=== PATIENT | female | born 1935 | race Caucasian/White ===

== ENCOUNTER → 2016-03-09 | Outpatient (CLI) | payer MEDICARE, OTHER ==
--- NOTE | 2016-03-09 22:40 | XR ---
EXAMINATION TYPE: XR chest 2V DATE OF EXAM: 03/09/2016 5:40 PM COMPARISON: 06/07/2015 HISTORY: 80-year-old female chest pain and cough TECHNIQUE: Frontal and lateral views FINDINGS: Heart remains upper limits of normal in size. Aorta and pulmonary vasculature within normal limits. D iffuse interstitial prominence is similar. Peribronchial cuffing appears accentuated. Continued media l right basilar opacity likely prominent epicardial fat pad. Mild hyperinflation. No consolidation or pleural effusion. IMPRESSION: Correlate for underlying COPD. There may be increased peribronchial opacities that could represent dhaliwal perimposed acute bronchitis.
== END | disposition home or self-care (01) ==
LOC: RADXRMAIN 17:30
PROVIDERS: ATTEND Family Medicine
DX: R07.89 Other chest pain (principal); R91.8 Other nonspecific abnormal finding of lung field
CPT/HCPCS: 71020

== ENCOUNTER → 2016-03-22 | Outpatient (CLI) | payer MEDICARE, OTHER ==
--- NOTE | 2016-03-22 17:39 | XR ---
EXAMINATION TYPE: XR Hip Bilateral Complete DATE OF EXAM: 03/22/2016 5:34 PM COMPARISON: NONE HISTORY: Bilateral hip pain TECHNIQUE: 4 views FINDINGS: I see no fracture nor dislocation. Hip joint spaces are fairly normal. There is mild spurri ng at both hip joints. IMPRESSION: Mild degenerative hypertrophic spurring. No fracture. No change compared to old abdomen x -ray of 09/14/2009.
== END | disposition home or self-care (01) ==
LOC: RADXRMAIN 17:22
PROVIDERS: ATTEND Family Medicine
DX: M16.0 Bilateral primary osteoarthritis of hip (principal)
CPT/HCPCS: 73521

== ENCOUNTER → 2016-07-07 | Outpatient (CLI) | payer MEDICARE, OTHER ==
--- NOTE | 2016-07-07 12:46 | US ---
EXAMINATION TYPE: US abdomen complete DATE OF EXAM: 07/07/2016 9:54 AM COMPARISON: Correlation CT 01/21/2016 CLINICAL HISTORY: 80-year-old female R14.0 ABD BLOATING. ABD pain and bloating TECHNIQUE: Multiple sonographic images of the abdomen were obtained. FINDINGS: PLASTICS FACTORY WORKER NOTE: Difficult exam, large pt body habitus, difficulty breathing and lying on bed Liver Length: 19.0 cm CBD: 1.0 cm Spleen: 10.6 cm Right Kidney: 9.2 x 4.5 x 4.9 cm Left Kidney: 9.9 x 4.2 x 4.6 cm Pancreas: 4mm main pancreatic duct visible, only a small portion of the neck and body are visualized . Remainder suboptimally seen due to shadowing from bowel gas. Liver: Mildly enlarged, echogenic, and attenuating. This secondarily limits assessment for focal lesi on. Gallbladder: Surgically absent CBD: Dilated but likely within normal limits given postcholecystectomy status. Spleen: Granulomas visible Right Kidney: No hydronephrosis Left Kidney: No hydronephrosis Upper IVC: Not well seen Abd Aorta: Obscured by overlying bowel gas IMPRESSION: 1. Technically difficult exam noted by the harvest contractor. 2. Hepatomegaly and hepatic steatosis. Correlate with LFTs, lipid profile, and patient risk factors. 3. Status post cholecystectomy. Bile duct is dilated but likely normal given patient's age and cholec ystectomy status. This can be correlated with alkaline phosphatase and bilirubin levels. 4. Mildly dilated main pancreatic duct at 4 mm, probably chronic for this patient. Correlate with claudia lase and lipase levels. 5. Calcified granulomas in the spleen.
== END | disposition home or self-care (01) ==
LOC: RADUSWWP 09:31
PROVIDERS: ATTEND Family Medicine
DX: R16.0 Hepatomegaly, not elsewhere classified (principal); K76.0 Fatty (change of) liver, not elsewhere classified; Z90.49 Acquired absence of other specified parts of digestive tract; D73.89 Other diseases of spleen; K86.89 Other specified diseases of pancreas
CPT/HCPCS: 76700

== ENCOUNTER 2016-08-04 07:44 | Inpatient (IN) | payer MEDICARE, OTHER ==
[2016-08-04] MEDS ORDERED: SODIUM CHLORIDE 0.9% 1,000 ML IV STA (08:07)
[2016-08-04] MEDS ORDERED: HYDROmorphone 1 MG/ML 1 ML SYRINGE IVP STA (08:07)
[2016-08-04] MEDS ORDERED: ONDANSETRON 4 MG/2 ML VIAL IVP STA (08:07)
--- NOTE | 2016-08-04 08:45 | ED ---
Fall HPI - General Chief Complaint: Fall Stated Complaint: FALL, CHEST PAIN, ABDOMINAL PAIN Time Seen by Provider: 08/04/16 07:50 Source: patient, EMS Mode of arrival: EMS - History of Present Illness Initial Comments: This 80-year-old female presents complaining of falling out of bed this morning. She states that she fell out of bed and was unable to get up. She had been lying on the floor for approximately 4 hours. She states that she hit her head but did not lose any consciousness. She also complains of some neck and back pain. Her grandson eventually did find her and they called EMS and she presents via ambulance. She complains of diffuse pain but it is somewhat worse in the head neck back and pelvis regions. She denies any extremity trauma. She feels very weak. She denies any chest pain or shortness of breath. No fevers or chills. She feels very weak. No other complaints or modifying factors. - Related Data Home Medications Medication Instructions Recorded Confirmed Ipratropium/Albuterol Sulfate 3 ml INHALATION RT-QID PRN 06/12/13 08/04/16 [Duoneb 0.5 mg-3 mg/3 ml Soln] Albuterol Inhaler [Ventolin Hfa 1 - 2 puff INHALATION RT-Q6H PRN 05/19/14 Inhaler] Metoprolol Tartrate [Lopressor] 25 mg PO DAILY 05/19/14 08/04/16 Insulin Aspart Protam & Aspart 40 unit SQ BID 06/07/15 08/04/16 [NovoLOG MIX 70-30 Flexpen] LORazepam [Ativan] 2 mg PO TID PRN 08/04/16 08/04/16 Metoprolol Tartrate [Lopressor] 50 mg PO HS 08/04/16 08/04/16 Spironolactone [Aldactone] 100 mg PO DAILY 08/04/16 08/04/16 Allergies Allergy/AdvReac Type Severity Reaction Status Date / Time iodine Allergy Severe Unknown Verified 08/04/16 09:05 blue dye Allergy Swelling Verified 08/04/16 09:05 bumetanide [From Bumex] Allergy Swelling Verified 08/04/16 09:05 diphenhydramine Allergy Unknown Verified 08/04/16 09:05 [From Benadryl] glipizide [From Glucotrol] Allergy Swelling Verified 08/04/16 09:05 metformin Allergy Swelling Verified 08/04/16 09:05 naproxen sodium [From Aleve] Allergy Swelling Verified 08/04/16 09:05 Penicillins Allergy Swelling Verified 08/04/16 09:05 codeine AdvReac Nausea & Verified 08/04/16 09:05 Vomiting furosemide [From Lasix] AdvReac Abdominal Verified 08/04/16 09:05 Pain levofloxacin [From Levaquin] AdvReac Abdominal Verified 08/04/16 09:05 Pain morphine AdvReac Nausea & Verified 08/04/16 09:05 Vomiting nateglinide [From Starlix] AdvReac Unknown Verified 08/04/16 09:05 nitrofurantoin AdvReac Nausea & Verified 08/04/16 09:05 [From Macrobid] Vomiting & Diarrhea nitrofurantoin AdvReac Nausea & Verified 08/04/16 09:05 macrocrystalline Vomiting & [From Macrobid] Diarrhea Sulfa (Sulfonamide AdvReac Abdominal Verified 08/04/16 09:05 Antibiotics) Pain Review of Systems ROS Statement: Those systems with pertinent positive or pertinent negative responses have been documented in the HPI. ROS Other: All systems not noted in ROS Statement are negative. Past Medical History Past Medical History: Asthma, Chest Pain / Angina, COPD, CVA/TIA, Diabetes Mellitus, GERD/Reflux, Hyperlipidemia, Hypertension, Osteoarthritis (OA), Vascular Disorder Additional Past Medical History / Comment(s): chronic back pain and spimal; stenosis, varicose veins, bronchitis, emphysema, gallbladder disorder, irritable bowel syndrome, polyps, urinary incontinence, UTI, arthritis History of Any Multi-Drug Resistant Organisms: None Reported Past Surgical History: Appendectomy, Cholecystectomy, Hysterectomy Additional Past Surgical History / Comment(s): foot surgery (unknown), hemorrhoidectomy Past Anesthesia/Blood Transfusion Reactions: No Reported Reaction Past Psychological History: Anxiety, Depression Smoking Status: Former smoker Past Alcohol Use History: None Reported Past Drug Use History: None Reported - Past Family History Father History Unknown: Yes Family Medical History: Unable to Obtain Additional Family Medical History / Comment(s): at 32 from drowning Mother History Unknown: Yes Family Medical History: Myocardial Infarction (NH) Brother(s) History Unknown: Yes Family Medical History: Unable to Obtain Sister(s) History Unknown: Yes Family Medical History: Hypertension, Osteoarthritis (OA) Daughter(s) History Unknown: Yes Additional Family Medical History / Comment(s): back issues General Exam - General Exam Comments Initial Comments: GENERAL: The patient is well nourished and well hydrated. VITAL SIGNS: Heart rate, blood pressure, respiratory rate reviewed as recorded in nurse's notes. EYES: Pupils are round and reactive. Extraocular movements are intact. No conjunctival / lid redness or swelling. ENT: No external evidence of injury, swelling, or ecchymosis. Airway is patent. Throat is clear. NECK: There is mild tenderness present to the bilateral paracervical musculature. No swelling or evidence of injury. No subcutaneous emphysema. Trachea is midline. No thyroid mass. HEART: Regular rate and rhythm. Good peripheral pulses. LUNGS/CHEST: Breath sounds clear and equal bilaterally. No rales, rhonchi, or wheezes. No ecchymosis, subcutaneous emphysema, or tenderness. ABDOMEN: Abdomen soft without tenderness. No palpable masses or organomegaly. No peritoneal signs. No abdominal wall swelling or ecchymosis. EXTREMITIES: No extremity tenderness. Normal muscle tone and function. There is mild diffuse tenderness throughout the bilateral parathoracic and paralumbar musculature. There is mild diffuse tenderness throughout the pelvis and hips. NEUROLOGIC: Sensation is grossly intact. Cranial nerve exam reveals face is symmetrical, tongue is midline, speech is clear. SKIN: No abrasions or ecchymosis is noted. No induration or masses noted. PSYCHIATRIC: Alert and oriented. Appropriate behavior and judgment. Limitations: physical limitation Course Vital Signs 08/04/16 08/04/16 07:45 09:15 Temperature 98.5 F Pulse Rate 99 84 Respiratory 20 20 Rate Blood Pressure 175/79 167/72 O2 Sat by Pulse 95 98 Oximetry Medical Decision Making - Medical Decision Making The patient was seen and examined. All diagnostics were reviewed. EKG shows a normal sinus rhythm at a rate of 91. There is no acute ST-T wave changes identified. The DE interval is 252, QRS duration is 66, and the QTc interval is 474. An IV is started and she is hydrated. She received some Zofran for nausea and Dilaudid for pain. A CT of the head and neck was ordered. X-rays of the thoracic spine, lumbar spine, chest and pelvis are ordered as well. The computed tomography scan did not show any acute processes. The x-rays also did not show any acute processes. The laboratory came back showing slight elevation of the CK-MB and a moderate elevation of the CPK. The urine is equivocal for possible urinary infection. She feels somewhat improved on recheck. She is still feels very weak. She does not feel well enough to be discharged home. She states that she is worried about falling and lives alone. The case is discussed with Dr. Enriquez from internal medicine and he is agreeable with full admission. - Lab Data Result diagrams: 08/04/16 08:15 08/04/16 08:15 Lab Results 08/04/16 08/04/16 08/04/16 Range/Units 08:15 08:15 08:15 WBC 8.8 (3.8-10.6) k/uL RBC 4.30 (3.80-5.40) m/uL Hgb 13.5 (11.4-16.0) gm/dL Hct 36.6 (34.0-46.0) % MCV 85.2 (80.0-100.0) fL MCH 31.3 (25.0-35.0) pg MCHC 36.8 (31.0-37.0) g/dL RDW 13.6 (11.5-15.5) % Plt Count 233 (150-450) k/uL Neutrophils % 74 % Lymphocytes % 16 % Monocytes % 7 % Eosinophils % 1 % Basophils % 0 % Neutrophils # 6.5 (1.3-7.7) k/uL Lymphocytes # 1.4 (1.0-4.8) k/uL Monocytes # 0.6 (0-1.0) k/uL Eosinophils # 0.1 (0-0.7) k/uL Basophils # 0.0 (0-0.2) k/uL PT (9.0-12.0) sec INR (<1.1) APTT (22.0-30.0) sec Sodium 141 (137-145) mmol/L Potassium 3.6 (3.5-5.1) mmol/L Chloride 103 (98-107) mmol/L Carbon Dioxide 26 (22-30) mmol/L Anion Gap 12 mmol/L BUN 16 (7-17) mg/dL Creatinine 0.59 (0.52-1.04) mg/dL Est GFR (MDRD) Af Amer >60 (>60 ml/min/1.73 sqM) Est GFR (MDRD) Non-Af >60 (>60 ml/min/1.73 sqM) Glucose 229 H (74-99) mg/dL Calcium 9.2 (8.4-10.2) mg/dL Total Bilirubin 0.6 (0.2-1.3) mg/dL AST 31 (14-36) U/L ALT 35 (9-52) U/L Alkaline Phosphatase 99 (38-126) U/L Total Creatine Kinase 580 H (30-135) U/L CK-MB (CK-2) 6.5 H* (0.0-2.4) ng/mL CK-MB (CK-2) Rel Index 1.1 Troponin I 0.018 (0.000-0.034) ng/mL Total Protein 6.9 (6.3-8.2) g/dL Albumin 4.0 (3.5-5.0) g/dL Urine Color Urine Appearance (Clear) Urine pH (5.0-8.0) Ur Specific [place] (1.001-1.035) Urine Protein (Negative) Urine Glucose (UA) (Negative) Urine Ketones (Negative) Urine Blood (Negative) Urine Nitrite (Negative) Urine Bilirubin (Negative) Urine Urobilinogen (<2.0) mg/dL Ur Leukocyte Esterase (Negative) Urine RBC (0-5) /hpf Urine WBC (0-5) /hpf Ur Squamous Epith Cells (0-4) /hpf Urine Bacteria (None) /hpf Urine Mucus (None) /hpf 08/04/16 08/04/16 Range/Units 08:15 08:15 WBC (3.8-10.6) k/uL RBC (3.80-5.40) m/uL Hgb (11.4-16.0) gm/dL Hct (34.0-46.0) % MCV (80.0-100.0) fL MCH (25.0-35.0) pg MCHC (31.0-37.0) g/dL RDW (11.5-15.5) % Plt Count (150-450) k/uL Neutrophils % % Lymphocytes % % Monocytes % % Eosinophils % % Basophils % % Neutrophils # (1.3-7.7) k/uL Lymphocytes # (1.0-4.8) k/uL Monocytes # (0-1.0) k/uL Eosinophils # (0-0.7) k/uL Basophils # (0-0.2) k/uL PT 10.5 (9.0-12.0) sec INR 1.0 (<1.1) APTT 22.6 (22.0-30.0) sec Sodium (137-145) mmol/L Potassium (3.5-5.1) mmol/L Chloride (98-107) mmol/L Carbon Dioxide (22-30) mmol/L Anion Gap mmol/L BUN (7-17) mg/dL Creatinine (0.52-1.04) mg/dL Est GFR (MDRD) Af Amer (>60 ml/min/1.73 sqM) Est GFR (MDRD) Non-Af (>60 ml/min/1.73 sqM) Glucose (74-99) mg/dL Calcium (8.4-10.2) mg/dL Total Bilirubin (0.2-1.3) mg/dL AST (14-36) U/L ALT (9-52) U/L Alkaline Phosphatase (38-126) U/L Total Creatine Kinase (30-135) U/L CK-MB (CK-2) (0.0-2.4) ng/mL CK-MB (CK-2) Rel Index Troponin I (0.000-0.034) ng/mL Total Protein (6.3-8.2) g/dL Albumin (3.5-5.0) g/dL Urine Color Light Yellow Urine Appearance Cloudy H (Clear) Urine pH 6.0 (5.0-8.0) Ur Specific [place] 1.008 (1.001-1.035) Urine Protein Negative (Negative) Urine Glucose (UA) 4+ H (Negative) Urine Ketones Negative (Negative) Urine Blood Negative (Negative) Urine Nitrite Negative (Negative) Urine Bilirubin Negative (Negative) Urine Urobilinogen <2.0 (<2.0) mg/dL Ur Leukocyte Esterase Small H (Negative) Urine RBC 5 (0-5) /hpf Urine WBC 8 H (0-5) /hpf Ur Squamous Epith Cells 1 (0-4) /hpf Urine Bacteria Rare H (None) /hpf Urine Mucus Rare H (None) /hpf Disposition Clinical Impression: Fall, Head injury, Cervical strain, Strain of thoracic spine, Lumbar strain, Elevated CPK, Weakness, Morbid obesity Disposition: ADMITTED IP TO THIS HOSP Condition: Fair Instructions: Fall Prevention for Older Adults (ED) Referrals: Axel Thomason DO [Primary Care Provider] - 1-2 days Time of Disposition: 11:52 Decision Date: 08/04/16 Decision Time: 11:52
[2016-08-04 09:02] LABS: Basophils % (A) 0 %; CH 30.3; CHCM 35.8; Eosinophils # (A) 0.1 k/uL (0-0.7); Eosinophils % (A) 1 %; HCT 36.6 % (34.0-46.0); HDW 3.07; HGB 13.5 gm/dL (11.4-16.0); Luc # (Auto) 0.18; Luc % (Auto) 2; Lymphocytes # (A) 1.4 k/uL (1.0-4.8); Lymphocytes % (A) 16 %; MCH 31.3 pg (25.0-35.0); MCHC 36.8 g/dL (31.0-37.0); MCV 85.2 fL (80.0-100.0); Mean Platelet Volume 7.3; Monocytes # (A) 0.6 k/uL (0-1.0); Monocytes % (A) 7 %; Neutrophils # (A) 6.5 k/uL (1.3-7.7); Neutrophils % (A) 74 %; RDW 13.6 % (11.5-15.5); WBC 8.8 k/uL (3.8-10.6); WBC (Perox) 9.12
[2016-08-04 09:08] LABS: Partial Thromboplastin Time 22.6 sec (22.0-30.0); Prothrombin Time 10.5 sec (9.0-12.0)
[2016-08-04 09:12] LABS: Appearance,Urine Cloudy (Clear); Bacteria,Urine Rare /hpf; Bilirubin,Urine Negative (Negative); Glucose,Urine (UA) 4+ (Negative); Ketones,Urine Negative (Negative); Leukocyte Esterase,Urine Small (Negative); Mucus,Urine Rare /hpf; Nitrite,Urine Negative (Negative); Particle Count 5067; Protein,Urine Negative (Negative); RBC,Urine 5 /hpf (0-5); Specific Gravity,Urine 1.008 (1.001-1.035); Squamous Epithelial Cell,Urine 1 /hpf (0-4); UA Billing (MACRO vs. MICRO) MICRO; Urobilinogen,Urine <2.0 mg/dL (<2.0); WBC,Urine 8 /hpf (0-5)
[2016-08-04 09:13] LABS: ALT 35 U/L (9-52); AST 31 U/L (14-36); Alkaline Phosphatase 99 U/L (38-126); Anion Gap 12 mmol/L; Blood Urea Nitrogen 16 mg/dL (7-17); Calcium 9.2 mg/dL (8.4-10.2); Carbon Dioxide 26 mmol/L (22-30); Chloride 103 mmol/L (98-107); Glucose 229 mg/dL (74-99); Non-African American GFR(MDRD) >60 (>60 ml/min/1.73 sqM); Potassium 3.6 mmol/L (3.5-5.1); Sodium 141 mmol/L (137-145); Total Bilirubin 0.6 mg/dL (0.2-1.3); Total Protein 6.9 g/dL (6.3-8.2)
--- NOTE | 2016-08-04 09:26 | CT ---
EXAMINATION TYPE: CT brain narcisoine wo con DATE OF EXAM: 08/04/2016 COMPARISON: CT brain December 20, 2012 HISTORY: Fall injury yesterday, Chest and Abdominal pain. CT DLP: 1726 mGycm. Automated Exposure Control for Dose Reduction was Utilized. TECHNIQUE: CT scan of the head and cervical spine are performed without contrast. FINDINGS: There is no acute intracranial hemorrhage hemorrhage or midline shift identified. There i s ventricular and sulcal prominence consistent with diffuse cerebral atrophy. There is low-attenuatio n in the periventricular white matter. The globes are intact and the visualized sinuses are clear. Th e calvarium is intact Cervical spine is visualized in its entirety from C1 through upper thoracic levels and demonstrates s atisfactory alignment without evidence of acute fracture or dislocation. Prevertebral soft tissue ap pears within normal limits. The C1-C2 articulation is within normal limits on the coronal images. Osseous structures are demineralized. Vertebral body heights and disc space heights are fairly well-m aintained. Spinal canal is preserved. There is mild multilevel uncovertebral facet degenerative jarrett es bilaterally seen on axial images. Thyroid gland is felt within normal limits. There is mild to mod erate calcified plaque at carotid bulb level bilaterally. There is mild to moderate apical scarring i n both lung apices pronounced posteriorly. IMPRESSION: 1. There is no acute fracture or dislocation evident in the cervical spine. 2. No acute intracranial hemorrhage or midline shift is seen. Mild to moderate diffuse cerebral atrop hy and chronic small vessel ischemic change is redemonstrated.
[2016-08-04 09:37] LABS: Troponin I 0.018 ng/mL (0.000-0.034)
[2016-08-04 09:56] LABS: Creatine Kinase MB 6.5 ng/mL (0.0-2.4)
--- NOTE | 2016-08-04 10:15 | XR ---
EXAMINATION TYPE: XR pelvis AP view DATE OF EXAM: 08/04/2016 CLINICAL HISTORY: Pain after fall injury. TECHNIQUE: A single AP view of the pelvis is obtained. COMPARISON: None. FINDINGS: There is no acute fracture/dislocation evident in the pelvis. The hip and sacroiliac join ts appear symmetric and unremarkable. The overlying soft tissue appears unremarkable. IMPRESSION: There is no acute fracture or dislocation in the pelvis.
--- NOTE | 2016-08-04 10:18 | XR ---
EXAMINATION TYPE: XR chest 2V DATE OF EXAM: 08/04/2016 COMPARISON: Chest x-ray March 09, 2016. HISTORY: Chest pain after fall injury. TECHNIQUE: Frontal and lateral views of the chest are obtained. FINDINGS: There is no focal air space opacity, pleural effusion, or pneumothorax seen. The cardiac silhouette size is enlarged with atherosclerotic thoracic aorta. The osseous structures are intact. Cholecystectomy clips are noted on lateral view. IMPRESSION: Cardiomegaly without acute pulmonary process.
--- NOTE | 2016-08-04 10:19 | XR ---
EXAMINATION TYPE: XR lumbar spine 2 or 3V DATE OF EXAM: 08/04/2016 CLINICAL HISTORY: Pain from fall injury. TECHNIQUE: Frontal and lateral images of the lumbar spine are obtained. COMPARISON: Lumbar spine x-ray June 07, 2015. FINDINGS: Osseous structures are demineralized which is noted to lower radiographic sensitivity. The re are 5 lumbar type vertebral bodies identified. The lumbar spine redemonstrates grade 1 anterolist hesis of L4 on L5 without evidence of acute fracture or dislocation. Vertebral body heights and disk space heights are within normal limits. Vascular calcification of overlying abdominal aorta redemonst rated. Cholecystectomy clips are again seen. IMPRESSION: Demineralization with grade 1 anterolisthesis L4 on L5 redemonstrated. No acute fracture or dislocation is seen in the lumbar spine.
--- NOTE | 2016-08-04 10:20 | XR ---
EXAMINATION TYPE: XR thoracic spine 2V DATE OF EXAM: 08/04/2016 CLINICAL HISTORY: Fall with mid back pain. TECHNIQUE: Frontal, lateral, and swimmer's view of thoracic spine are obtained. COMPARISON: None. FINDINGS: Osseous structures are demineralized which is noted lower radiographic sensitivity. Thoraci c spine show exaggerated curvature without evidence of acute fracture or dislocation. Mild compressio n type deformities throughout the thoracic spine most prominent upper levels is felt present. Mild mu ltilevel lateral spurring is seen. Disc space heights are fairly well-maintained. Visualized ribs are unremarkable. Vascular calcification of the overlying aorta is noted. IMPRESSION: No acute fracture or dislocation is seen in the thoracic spine.
[2016-08-04] MEDS ORDERED: ACETAMINOPHEN TAB 325 MG TAB PO PRN (12:42)
[2016-08-04] MEDS ORDERED: ONDANSETRON 4 MG/2 ML VIAL IVP PRN (12:42)
[2016-08-04] MEDS ORDERED: NALOXONE 0.4 MG/ML 1 ML VIAL IV PRN (12:42)
[2016-08-04] MEDS ORDERED: ALBUTEROL INHALER 60 PUFF/8 GM INHALER INHALATION PRN (12:46)
[2016-08-04] MEDS: INSULIN LISPRO (humaLOG) 300 UNIT/3 ML VIAL SQ SCH ×2 (13:21→21:26)
[2016-08-04 13:22] LABS: Glucose,Whole Blood 342 mg/dL (75-99)
[2016-08-04] MEDS: IPRATROPIUM-ALBUTEROL 3 ML NEB INHALATION PRN ×2 (16:31→20:03)
--- NOTE | 2016-08-04 16:36 | P.HPIM ---
History of Present Illness H&P Date: 08/04/16 Chief Complaint: Fall, closed head trauma, cervical and spinal sprain, rhabdomyolysis, UTI,, 80-year-old female [address] Thomason patient with past medical history of CAD, COPD, CVA and TIA who is known to have diabetes hypertension hyperlipidemia chronic back pain and spinal stenosis with multiple other medical problem. 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 Patient edition 2 it is not able to ambulate and walk and had significant change in mental status at the time. Patient was started on treatment was placed on fluid hydration pain management patient was started physical therapy might require cervical spine collar will watch her kidney function and CK and try to treat the UTI more aggressively see if patient improve at this point. Review of Systems Constitutional: Reports chronic headaches, Reports fatigue, Reports fever, Reports lethargy, Reports malaise, Reports night sweats, Reports weakness, Reports weight gain, Denies as per HPI, Denies anorexia, Denies chills, Denies chronic pain, Denies daytime sleepiness, Denies poor appetite, Denies sweats, Denies weight loss Eyes: bilateral as per HPI Ears: bilateral: decreased hearing Ears, nose, mouth and throat: Reports ant. neck pain, Reports mouth pain, Reports nasal congestion, Reports nasal discharge, Reports sinus pain, Reports sinus pressure, Denies as per HPI, Denies bleeding gums, Denies dental pain, Denies dysphagia, Denies epistaxis, Denies headache, Denies hoarseness, Denies neck fullness/pressure, Denies neck lump, Denies nose pain, Denies odynophagia, Denies post-nasal drip, Denies swelling in mouth, Denies swelling in throat, Denies sore throat, Denies vertigo, Denies voice changes Cardiovascular: Reports decreased exercise tolerance, Reports dyspnea on exertion, Reports edema, Reports high blood pressure, Reports lightheadedness, Reports orthopnea, Reports palpitations, Reports rapid heart beat, Denies as per HPI, Denies chest pain, Denies claudication, Denies irregular heart beat, Denies leg edema, Denies paroxysmal nocturnal dyspnea, Denies phlebitis, Denies shortness of breath, Denies syncope Respiratory: Reports congestion, Reports dyspnea, Denies as per HPI, Denies cough, Denies cough with sputum, Denies excessive sputum, Denies hemoptysis, Denies home oxygen, Denies pain, Denies pain on inspiration, Denies pleurisy, Denies respiratory infections, Denies sleep apnea, Denies snoring, Denies wheezing Gastrointestinal: Reports belching, Reports bloating, Reports constipation, Reports dyspepsia, Reports early satiety, Reports indigestion, Reports nausea, Denies as per HPI, Denies abdominal pain, Denies BRBPR, Denies change in bowel habits, Denies coffee ground emesis, Denies diarrhea, Denies excessive gas, Denies heartburn, Denies hematemesis, Denies hematochezia, Denies jaundice, Denies lactose intolerance, Denies loss of appetite, Denies melena, Denies vomiting Genitourinary: Reports urge incontinence, Reports urinary frequency, Denies as per HPI, Denies abnormal vaginal bleeding, Denies decreased libido, Denies difficulty conceiving, Denies difficulty voiding, Denies dysmenorrhea, Denies dyspareunia, Denies dysuria, Denies flank pain, Denies genital sores, Denies hematuria, Denies hot flashes, Denies incomplete emptying, Denies kidney stones , Denies menorrhagia, Denies mixed incontinence, Denies nocturia, Denies pelvic pain, Denies post void dribbling, Denies , Denies prolapse symptoms, Denies stress incontinence, Denies urgency, Denies vaginal discharge, Denies vaginal dryness, Denies vaginal itching, Denies vaginal odor Musculoskeletal: Reports frequent falls, Reports gait dysfunction, Reports leg numbness/tingling, Reports limitation of motion, Reports morning stiffness, Reports muscle cramps, Reports muscle weakness, Reports myalgias, Reports neck pain, Reports neck stiffness, Denies as per HPI, Denies arm numbness/tingling, Denies atrophy, Denies fractures, Denies hot joints, Denies loss of height, Denies low back pain, Denies prior amputations, Denies redness of joints, Denies shooting arm pain, Denies shooting leg pain Integumentary: Reports pruritus, Denies as per HPI, Denies acne, Denies boils, Denies brittle nails, Denies change in hair/nails, Denies color changes, Denies darkening of skin, Denies depigmentation, Denies dryness, Denies foot/leg ulcers , Denies growths, Denies hirsutism, Denies lesions, Denies onychomycosis, Denies rash, Denies sores, Denies striae, Denies unusual bruising, Denies wounds Neurological: Reports ataxia, Reports burning pain, Reports change in mentation , Reports confusion, Reports convulsions, Reports double vision, Reports gait dysfunction, Reports head injury, Reports lack of coordination, Reports loss of vision, Reports motor disturbance, Reports numbness, Reports paralysis, Reports paresthesias, Reports sensory deficit, Reports spasticity, Reports tingling, Reports transient paralysis, Reports weakness, Denies as per HPI, Denies aphasia , Denies balance difficulties, Denies change in smell/taste, Denies change in speech, Denies headaches, Denies hearing difficulties, Denies memory loss, Denies migraines, Denies seizures, Denies syncope, Denies tic, Denies tremors, Denies vertigo, Denies visual changes Psychiatric: Reports anhedonia, Reports depression, Reports memory loss, Reports mood swings, Denies as per HPI, Denies anxiety, Denies anxiety attacks, Denies change in appetite, Denies change in libido, Denies change in sleep habits, Denies confusion, Denies difficulty concentrating, Denies disorientation , Denies hallucinations, Denies hopelessness, Denies hypersomnia, Denies insomnia, Denies irritability, Denies paranoia, Denies sadness/tearfulness, Denies sleep disturbances, Denies suicidal ideation Endocrine: Reports polyphagia, Reports polyuria Hematologic/Lymphatic: Reports easy bruising, Denies as per HPI, Denies easy bleeding, Denies lymphadenopathy, Denies lymphedema, Denies thrombophilia Allergic/Immunologic: Reports allergic rhinitis, Denies as per HPI, Denies anaphylaxis, Denies angioedema, Denies gluten intolerance, Denies persistent infections, Denies seasonal allergies, Denies urticaria, Denies wheezing Past Medical History Past Medical History: Asthma, Chest Pain / Angina, COPD, CVA/TIA, Diabetes Mellitus, GERD/Reflux, Hyperlipidemia, Hypertension, Osteoarthritis (OA), Pneumonia, Vascular Disorder Additional Past Medical History / Comment(s): NIDDM type II, neuropathy bilateral feet, chronic back pain, spinal stenosis, PAD, bilateral varicose veins, bronchitis, emphysema, irritable bowel syndrome, polyps, urinary incontinence, UTI, arthritis in legs bilaterally, tinnitus bilaterally, cataracts bilaterally.. History of Any Multi-Drug Resistant Organisms: None Reported Past Surgical History: Appendectomy, Cholecystectomy, Hysterectomy, Orthopedic Surgery Additional Past Surgical History / Comment(s): EGD/colonoscopy, hemorrhoidectomy , bilateral feet bunionectomies and corns removed. Past Anesthesia/Blood Transfusion Reactions: No Reported Reaction Smoking Status: Former smoker - Past Family History Father History Unknown: Yes Family Medical History: Unable to Obtain Additional Family Medical History / Comment(s): at 32 from drowning Mother History Unknown: Yes Family Medical History: Myocardial Infarction ([place]) Additional Family Medical History / Comment(s): Mother of a [place] at the age of 68yrs. Brother(s) History Unknown: Yes Family Medical History: Unable to Obtain Sister(s) History Unknown: Yes Family Medical History: Hypertension, Osteoarthritis (OA) Daughter(s) History Unknown: Yes Additional Family Medical History / Comment(s): back issues Medications and Allergies Home Medications Medication Instructions Recorded Confirmed Type Ipratropium/Albuterol Sulfate 3 ml INHALATION RT-QID PRN 06/12/13 08/04/16 History [Duoneb 0.5 mg-3 mg/3 ml Soln] Albuterol Inhaler [Ventolin Hfa 1 - 2 puff INHALATION RT-Q6H PRN 05/19/14 History Inhaler] Metoprolol Tartrate [Lopressor] 25 mg PO DAILY 05/19/14 08/04/16 History Insulin Aspart Protam & Aspart 40 unit SQ BID 06/07/15 08/04/16 History [NovoLOG MIX 70-30 Flexpen] LORazepam [Ativan] 2 mg PO TID PRN 08/04/16 08/04/16 History Metoprolol Tartrate [Lopressor] 50 mg PO HS 08/04/16 08/04/16 History Spironolactone [Aldactone] 100 mg PO DAILY 08/04/16 08/04/16 History Allergies Allergy/AdvReac Type Severity Reaction Status Date / Time iodine Allergy Severe Unknown Verified 08/04/16 09:05 blue dye Allergy Swelling Verified 08/04/16 09:05 bumetanide [From Bumex] Allergy Swelling Verified 08/04/16 09:05 diphenhydramine Allergy Unknown Verified 08/04/16 09:05 [From Benadryl] glipizide [From Glucotrol] Allergy Swelling Verified 08/04/16 09:05 metformin Allergy Swelling Verified 08/04/16 09:05 naproxen sodium [From Aleve] Allergy Swelling Verified 08/04/16 09:05 Penicillins Allergy Swelling Verified 08/04/16 09:05 codeine AdvReac Nausea & Verified 08/04/16 09:05 Vomiting furosemide [From Lasix] AdvReac Abdominal Verified 08/04/16 09:05 Pain levofloxacin [From Levaquin] AdvReac Abdominal Verified 08/04/16 09:05 Pain morphine AdvReac Nausea & Verified 08/04/16 09:05 Vomiting nateglinide [From Starlix] AdvReac Unknown Verified 08/04/16 09:05 nitrofurantoin AdvReac Nausea & Verified 08/04/16 09:05 [From Macrobid] Vomiting & Diarrhea nitrofurantoin AdvReac Nausea & Verified 08/04/16 09:05 macrocrystalline Vomiting & [From Macrobid] Diarrhea Sulfa (Sulfonamide AdvReac Abdominal Verified 08/04/16 09:05 Antibiotics) Pain Physical Exam Vitals: Vital Signs Temp Pulse Pulse Resp BP BP Pulse Ox 08/04/16 15:00 97.2 F L 93 16 142/64 99 08/04/16 13:07 97.5 F L 85 18 125/59 97 08/04/16 09:15 84 20 167/72 98 08/04/16 07:45 98.5 F 99 20 175/79 95 Intake and Output 08/04/16 08/04/16 08/04/16 06:59 14:59 22:59 Other: Weight 81.647 kg Patient Weight 08/05/16 06:59 Weight 81.647 kg - Constitutional General appearance: no average body habitus, cooperative, disheveled, no mild distress, no morbidly obese, no no acute distress, no obese, no severe distress , no thin - EENT Eyes: no abnormal pupil, no anicteric sclerae, no disc margins sharp, no edentulous, no EOMI, no PERRLA, no fundus normal, no photophobia, no dentition normal, no poor dentition, no ptosis, no scleral icterus, normal appearance ENT: hard of hearing, no hearing grossly normal, no NA/AT, normal oropharynx, no other, no pharyngeal erythema, no thrush, no tonsillar exudates, no tonsillar swelling Ears: bilateral: normal - Neck Quite bit pain and discomfort with significant restriction to motion. Neck: no lymphadenopathy, no normal ROM, no other, rigidity, no stridor, no thyromegaly Carotids: bilateral: upstroke normal Thyroid: bilateral: normal size - Respiratory Respiratory: bilateral: diminished, dullness, rales, rhonchi, wheezing - Cardiovascular Rhythm: regular Heart sounds: normal: S1, S2 Abnormal Heart Sounds: systolic murmur, S3 Gallop - Gastrointestinal General gastrointestinal: no absent bowel sounds, decreased bowel sounds, no distended, no hepatomegaly, no hyperactive bowel sounds, no normal bowel sounds , no organomegaly, no rigid, no scaphoid, soft, splenomegaly, no tenderness, no umbilical hernia, no ventral hernia - Integumentary Integumentary: no calor, no cellulitis, no cyanotic, no decreased turgor, no flushed, no jaundiced, normal, no normal turgor, pale, rash, no ulcer - Neurologic Neurologic: CNII-XII intact - Musculoskeletal Musculoskeletal: no gait normal, generalized weakness, no strength equal bilaterally, no right sided weakness, no left sided weakness - Psychiatric Psychiatric: A&O x's 3, no appropriate affect, no intact judgment & insight Results CBC & Chem 7: 08/04/16 08:15 08/04/16 08:15 Labs: Abnormal Lab Results - Last 24 Hours (Table) 08/04/16 08/04/16 08/04/16 Range/Units 08:15 08:15 08:15 Glucose 229 H (74-99) mg/dL POC Glucose (mg/dL) (75-99) mg/dL Total Creatine Kinase 580 H (30-135) U/L CK-MB (CK-2) 6.5 H* (0.0-2.4) ng/mL Urine Appearance Cloudy H (Clear) Urine Glucose (UA) 4+ H (Negative) Ur Leukocyte Esterase Small H (Negative) Urine WBC 8 H (0-5) /hpf Urine Bacteria Rare H (None) /hpf Urine Mucus Rare H (None) /hpf 08/04/16 Range/Units 13:05 Glucose (74-99) mg/dL POC Glucose (mg/dL) 342 H (75-99) mg/dL Total Creatine Kinase (30-135) U/L CK-MB (CK-2) (0.0-2.4) ng/mL Urine Appearance (Clear) Urine Glucose (UA) (Negative) Ur Leukocyte Esterase (Negative) Urine WBC (0-5) /hpf Urine Bacteria (None) /hpf Urine Mucus (None) /hpf Thrombosis Risk Factor Assmnt - DVT/VTE Prophylaxis DVT/VTE Prophylaxis: Pharmacologic Prophylaxis ordered, Mechanical Prophylaxis ordered - Choose All That Apply Any of the Below Risk Factors Present?: Yes Each Factor Represents 1 point: Abnormal pulmonary function (COPD), Obesity ( BMI >25) Other Risk Factors: Yes Each Risk Factor Represents 3 Points: Age 75 years or older Other congenital or acquired thrombophilia - If yes, enter type in comment: No Thrombosis Risk Factor Assessment Total Risk Factor Score: 5 Thrombosis Risk Factor Assessment Level: High Risk Assessment and Plan Plan: 1 head trauma: Patient had mild change in mental status will continue neuro exam every 2 hours overnight continue to watch patient's symptoms carefully at this point. 2 post fall with cervical spine strain and injury: Continue cervical collar will lab start physical therapy gradually and patient will require to move with help. 3 rhabdomyolysis: Mild we'll continue to watch CK bun and creatinine continue hydration for now. 4 UTI: Patient was started on IV antibiotic was switched to oral antibiotic in the next 24 hours continue hydration will add cranberry or Azo. 5 severe debility not been able to ablate and walk: Aggravated by the fall was start physical therapy and hopefully with muscle relaxer and low dose of pain management patient can ablate with help. 6 change of mental status: Secondary to UTI rhabdomyolysis and closed head trauma continue to watch mentation. 7 CAD: No chest pain or angina at this point. 8 hypertension: Has been doing well on Lopressor and Aldactone. 9 COPD: Patient has been on DuoNeb and Ventolin HFA as a rescue inhaler if needed require will add steroid inhaler. 10 type 2 diabetes: Patient has been on insulin 70 3040 units twice a day continue patient with Accu-Chek sliding skills coverage. 11 GI prophylaxis: Patient be on Pepcid 20 mg daily. Next 12 DVT prophylaxis: Patient will be on heparin 5000 units subcutaneous in his twice a day. Next CODE STATUS: Full code. Next Expectation from's admission: Patient in the hospital for more than 2 nights..
[2016-08-04 17:21] LABS: Glucose,Whole Blood 246 mg/dL (75-99)
[2016-08-04] MEDS ORDERED: INSULIN LISPRO (humaLOG) 300 UNIT/3 ML VIAL SQ ONE (17:31)
[2016-08-04] MEDS: BACLOFEN 10 MG TAB PO PRN (17:34)
[2016-08-04] MEDS: HYDROmorphone 1 MG/ML 1 ML SYRINGE IV PRN (17:43)
[2016-08-04 18:29] LABS: Hemoglobin A1C 9.6 % (4.2-6.1)
[2016-08-04] MEDS: HYDROcodone/APAP 5-325MG 1 EACH TAB PO PRN (21:23)
[2016-08-04] MEDS: LORazepam 1 MG TAB PO PRN (21:24)
[2016-08-04] MEDS: INSULN ASP PRT/INSULIN ASPART 100 UNIT/ML 10 ML VIAL SQ SCH (21:25)
[2016-08-04] MEDS: METOPROLOL TARTRATE 50 MG TAB PO SCH (21:25)
[2016-08-04 21:29] LABS: Glucose,Whole Blood 322 mg/dL (75-99)
[2016-08-05 07:06] LABS: Glucose,Whole Blood 258 mg/dL (75-99)
[2016-08-05] MEDS: SPIRONOLACTONE 25 MG TAB PO SCH (07:58)
[2016-08-05] MEDS: PANTOPRAZOLE 40 MG/10 ML VIAL IV SCH ×2 (07:58→07:59)
[2016-08-05] MEDS: METOPROLOL TARTRATE 25 MG TAB PO SCH (07:58)
[2016-08-05] MEDS: ENOXAPARIN 40 MG/0.4 ML SYRINGE SQ SCH (07:58)
[2016-08-05] MEDS: FAMOTIDINE 20 MG TAB PO SCH (07:58)
[2016-08-05] MEDS: INSULIN LISPRO (humaLOG) 300 UNIT/3 ML VIAL SQ SCH ×4 (07:59→21:24)
[2016-08-05] MEDS: INSULN ASP PRT/INSULIN ASPART 100 UNIT/ML 10 ML VIAL SQ SCH ×2 (08:10→21:24)
[2016-08-05] MEDS: HYDROmorphone 1 MG/ML 1 ML SYRINGE IV PRN (08:11)
[2016-08-05] MEDS: LORazepam 1 MG TAB PO PRN ×2 (10:19→21:25)
[2016-08-05 10:52] LABS: Basophils % (A) 1 %; CH 30.1; CHCM 33.8; Eosinophils # (A) 0.1 k/uL (0-0.7); Eosinophils % (A) 1 %; HCT 38.7 % (34.0-46.0); HGB 12.9 gm/dL (11.4-16.0); Luc # (Auto) 0.13; Luc % (Auto) 1; Lymphocytes # (A) 1.1 k/uL (1.0-4.8); Lymphocytes % (A) 12 %; MCH 29.8 pg (25.0-35.0); MCHC 33.3 g/dL (31.0-37.0); MCV 89.4 fL (80.0-100.0); Mean Platelet Volume 7.9; Monocytes # (A) 0.5 k/uL (0-1.0); Monocytes % (A) 6 %; Neutrophils # (A) 7.2 k/uL (1.3-7.7); Neutrophils % (A) 80 %; RBC 4.33 m/uL (3.80-5.40); RDW 13.9 % (11.5-15.5); WBC (Perox) 9.42
[2016-08-05 11:10] LABS: Glucose,Whole Blood 214 mg/dL (75-99)
[2016-08-05 11:10] LABS: ALT 39 U/L (9-52); AST 29 U/L (14-36); Alkaline Phosphatase 79 U/L (38-126); Anion Gap 13 mmol/L; Blood Urea Nitrogen 13 mg/dL (7-17); Calcium 9.2 mg/dL (8.4-10.2); Carbon Dioxide 21 mmol/L (22-30); Chloride 105 mmol/L (98-107); Glucose 247 mg/dL (74-99); Non-African American GFR(MDRD) >60 (>60 ml/min/1.73 sqM); Sodium 139 mmol/L (137-145); Total Bilirubin 0.4 mg/dL (0.2-1.3); Total Protein 6.4 g/dL (6.3-8.2)
[2016-08-05 12:08] VITALS: BMI 34.0
[2016-08-05] MEDS: IPRATROPIUM-ALBUTEROL 3 ML NEB INHALATION PRN ×2 (12:28→16:20)
[2016-08-05] MEDS: BACLOFEN 10 MG TAB PO PRN (12:36)
[2016-08-05 14:48] LABS: Creatine Kinase MB 2.2 ng/mL (0.0-2.4); Troponin I 0.015 ng/mL (0.000-0.034)
--- NOTE | 2016-08-05 14:58 | P.PN ---
Subjective 80-year-old female [address] Thomason patient with past medical history of CAD, COPD, CVA and TIA who is known to have diabetes hypertension hyperlipidemia chronic back pain and spinal stenosis with multiple other medical problem. 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 Patient edition 2 it is not able to ambulate and walk and had significant change in mental status at the time. Patient was started on treatment was placed on fluid hydration pain management patient was started physical therapy might require cervical spine collar will watch her kidney function and CK and try to treat the UTI more aggressively see if patient improve at this point. 08/05/2016: Patient developed to have a chest pain that went to the back earlier today she had a twelve-lead EKG that showed normal sinus rhythm with no acute ST -T wave changes, cardiac enzymes are negative, she continues to have elevated CPK due to rhabdo, we will monitor the patient very closely recheck CPK tomorrow morning Objective - Vital Signs Vital signs: Vital Signs Temp 99.5 F 08/05/16 07:00 Pulse 98 08/05/16 07:00 Resp 18 08/05/16 07:00 BP 158/72 08/05/16 07:00 Pulse Ox 98 08/05/16 07:00 Intake & Output 08/04/16 08/05/16 08/05/16 18:59 06:59 18:59 Weight 81.647 kg Other: # Voids 2 1 - Exam - Constitutional General appearance: no average body habitus, cooperative, disheveled, no mild distress, no morbidly obese, no no acute distress, no obese, no severe distress , no thin - EENT Eyes: no abnormal pupil, no anicteric sclerae, no disc margins sharp, no edentulous, no EOMI, no PERRLA, no fundus normal, no photophobia, no dentition normal, no poor dentition, no ptosis, no scleral icterus, normal appearance ENT: hard of hearing, no hearing grossly normal, no NA/AT, normal oropharynx, no other, no pharyngeal erythema, no thrush, no tonsillar exudates, no tonsillar swelling Ears: bilateral: normal - Neck Quite bit pain and discomfort with significant restriction to motion. Neck: no lymphadenopathy, no normal ROM, no other, rigidity, no stridor, no thyromegaly Carotids: bilateral: upstroke normal Thyroid: bilateral: normal size - Respiratory Respiratory: bilateral: diminished, dullness, rales, rhonchi, wheezing - Cardiovascular Rhythm: regular Heart sounds: normal: S1, S2 Abnormal Heart Sounds: systolic murmur, S3 Gallop - Gastrointestinal General gastrointestinal: no absent bowel sounds, decreased bowel sounds, no distended, no hepatomegaly, no hyperactive bowel sounds, no normal bowel sounds , no organomegaly, no rigid, no scaphoid, soft, splenomegaly, no tenderness, no umbilical hernia, no ventral hernia - Integumentary Integumentary: no calor, no cellulitis, no cyanotic, no decreased turgor, no flushed, no jaundiced, normal, no normal turgor, pale, rash, no ulcer - Neurologic Neurologic: CNII-XII intact - Musculoskeletal Musculoskeletal: no gait normal, generalized weakness, no strength equal bilaterally, no right sided weakness, no left sided weakness - Psychiatric Psychiatric: A&O x's 3, no appropriate affect, no intact judgment & insight - Labs CBC & Chem 7: 08/05/16 09:59 08/05/16 09:59 Labs: Abnormal Lab Results - Last 24 Hours (Table) 08/04/16 08/04/16 08/04/16 Range/Units 08:15 13:05 17:18 POC Glucose (mg/dL) 342 H 246 H (75-99) mg/dL Hemoglobin A1c 9.6 H (4.2-6.1) % 08/04/16 08/05/16 Range/Units 21:09 07:03 POC Glucose (mg/dL) 322 H 258 H (75-99) mg/dL Hemoglobin A1c (4.2-6.1) % Assessment and Plan Plan: Assessment and Plan Plan: 1 head trauma: Patient had mild change in mental status will continue neuro exam every 2 hours overnight continue to watch patient's symptoms carefully at this point. 2 post fall with cervical spine strain and injury: Continue cervical collar will lab start physical therapy gradually and patient will require to move with help. 3 rhabdomyolysis: Mild we'll continue to watch CK bun and creatinine continue hydration for now. 4 UTI: Patient was started on IV antibiotic was switched to oral antibiotic in the next 24 hours continue hydration will add cranberry or Azo. 5 severe debility not been able to ablate and walk: Aggravated by the fall was start physical therapy and hopefully with muscle relaxer and low dose of pain management patient can ablate with help. 6 change of mental status: Secondary to UTI rhabdomyolysis and closed head trauma continue to watch mentation. 7 CAD: No chest pain or angina at this point. 8 hypertension: Has been doing well on Lopressor and Aldactone. 9 COPD: Patient has been on DuoNeb and Ventolin HFA as a rescue inhaler if needed require will add steroid inhaler. 10 type 2 diabetes: Patient has been on insulin 70 3040 units twice a day continue patient with Accu-Chek sliding skills coverage. 11 GI prophylaxis: Patient be on Pepcid 20 mg daily. Next 12 DVT prophylaxis: Patient will be on heparin 5000 units subcutaneous in his twice a day. Next CODE STATUS: Full code. Next
[2016-08-05 16:58] LABS: Glucose,Whole Blood 194 mg/dL (75-99)
[2016-08-05] MEDS: METOPROLOL TARTRATE 50 MG TAB PO SCH (21:24)
[2016-08-05 21:50] LABS: Glucose,Whole Blood 200 mg/dL (75-99)
[2016-08-05] MEDS: HYDROcodone/APAP 5-325MG 1 EACH TAB PO PRN (22:53)
[2016-08-06 06:55] LABS: Glucose,Whole Blood 138 mg/dL (75-99)
[2016-08-06] MEDS: METOPROLOL TARTRATE 25 MG TAB PO SCH (08:27)
[2016-08-06] MEDS: INSULIN LISPRO (humaLOG) 300 UNIT/3 ML VIAL SQ SCH ×4 (08:27→21:01)
[2016-08-06] MEDS: FAMOTIDINE 20 MG TAB PO SCH (08:27)
[2016-08-06] MEDS: ENOXAPARIN 40 MG/0.4 ML SYRINGE SQ SCH (08:27)
[2016-08-06] MEDS: SPIRONOLACTONE 25 MG TAB PO SCH (08:27)
[2016-08-06] MEDS: INSULN ASP PRT/INSULIN ASPART 100 UNIT/ML 10 ML VIAL SQ SCH ×2 (08:27→21:43)
[2016-08-06] MEDS ORDERED: PANTOPRAZOLE 40 MG/10 ML VIAL ONE (09:00)
[2016-08-06] MEDS ORDERED: ENOXAPARIN 40 MG/0.4 ML SYRINGE SQ ONE (09:00)
[2016-08-06] MEDS ORDERED: METOPROLOL TARTRATE 25 MG TAB ONE (09:00)
[2016-08-06] MEDS ORDERED: SPIRONOLACTONE 25 MG TAB ONE (09:00)
[2016-08-06] MEDS ORDERED: LORazepam 1 MG TAB ONE (09:00)
[2016-08-06] MEDS ORDERED: FAMOTIDINE 20 MG TAB ONE (09:00)
[2016-08-06] MEDS ORDERED: IPRATROPIUM-ALBUTEROL 3 ML NEB ONE (09:00)
[2016-08-06] MEDS ORDERED: INSULN ASP PRT/INSULIN ASPART 100 UNIT/ML 10 ML VIAL SQ ONE (09:00)
[2016-08-06 09:31] LABS: ALT 42 U/L (9-52); AST 29 U/L (14-36); Alkaline Phosphatase 87 U/L (38-126); Anion Gap 12 mmol/L; Blood Urea Nitrogen 14 mg/dL (7-17); Calcium 9.3 mg/dL (8.4-10.2); Carbon Dioxide 25 mmol/L (22-30); Chloride 103 mmol/L (98-107); Creatine Kinase 215 U/L (30-135); Glucose 158 mg/dL (74-99); Non-African American GFR(MDRD) >60 (>60 ml/min/1.73 sqM); Potassium 3.9 mmol/L (3.5-5.1); Sodium 140 mmol/L (137-145); Total Bilirubin 0.7 mg/dL (0.2-1.3); Total Protein 7.2 g/dL (6.3-8.2)
[2016-08-06 09:48] LABS: Basophils % (A) 0 %; CH 30.3; CHCM 34.2; Eosinophils # (A) 0.1 k/uL (0-0.7); Eosinophils % (A) 1 %; HCT 40.6 % (34.0-46.0); HDW 2.94; HGB 13.7 gm/dL (11.4-16.0); Luc # (Auto) 0.19; Luc % (Auto) 2; Lymphocytes # (A) 1.6 k/uL (1.0-4.8); Lymphocytes % (A) 15 %; MCHC 33.7 g/dL (31.0-37.0); Mean Platelet Volume 8.3; Monocytes # (A) 0.8 k/uL (0-1.0); Monocytes % (A) 8 %; Neutrophils # (A) 7.7 k/uL (1.3-7.7); Neutrophils % (A) 74 %; RBC 4.56 m/uL (3.80-5.40); WBC 10.4 k/uL (3.8-10.6); WBC (Perox) 10.48
[2016-08-06] MEDS: IPRATROPIUM-ALBUTEROL 3 ML NEB INHALATION PRN ×2 (11:09→15:39)
[2016-08-06 11:43] LABS: Glucose,Whole Blood 148 mg/dL (75-99)
[2016-08-06] MEDS ORDERED: FUROSEMIDE 10 MG/ML 4 ML VIAL IV STA (12:32)
[2016-08-06] MEDS: HYDROcodone/APAP 5-325MG 1 EACH TAB PO PRN (16:49)
[2016-08-06] MEDS: LORazepam 1 MG TAB PO PRN ×2 (16:50→22:59)
[2016-08-06 17:13] LABS: Glucose,Whole Blood 272 mg/dL (75-99)
[2016-08-06 21:07] LABS: Glucose,Whole Blood 314 mg/dL (75-99)
[2016-08-06] MEDS: METOPROLOL TARTRATE 50 MG TAB PO SCH (21:43)
[2016-08-07] MEDS: HYDROcodone/APAP 5-325MG 1 EACH TAB PO PRN ×2 (02:42→09:38)
[2016-08-07 07:29] LABS: Glucose,Whole Blood 111 mg/dL (75-99)
[2016-08-07 07:38] VITALS: RESP 16
[2016-08-07] MEDS: INSULIN LISPRO (humaLOG) 300 UNIT/3 ML VIAL SQ SCH ×2 (07:39→13:09)
[2016-08-07] MEDS: ENOXAPARIN 40 MG/0.4 ML SYRINGE SQ SCH (09:18)
[2016-08-07] MEDS: LORazepam 1 MG TAB PO PRN (09:18)
[2016-08-07] MEDS: METOPROLOL TARTRATE 25 MG TAB PO SCH (09:19)
[2016-08-07] MEDS: FAMOTIDINE 20 MG TAB PO SCH (09:19)
[2016-08-07] MEDS: SPIRONOLACTONE 25 MG TAB PO SCH (09:19)
[2016-08-07] MEDS: PANTOPRAZOLE 40 MG/10 ML VIAL IV SCH (09:20)
[2016-08-07] MEDS: INSULN ASP PRT/INSULIN ASPART 100 UNIT/ML 10 ML VIAL SQ SCH (09:38)
--- NOTE | 2016-08-07 10:28 | P.PN ---
Subjective 80-year-old female [address] Thomason patient with past medical history of CAD, COPD, CVA and TIA who is known to have diabetes hypertension hyperlipidemia chronic back pain and spinal stenosis with multiple other medical problem. 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 Patient edition 2 it is not able to ambulate and walk and had significant change in mental status at the time. Patient was started on treatment was placed on fluid hydration pain management patient was started physical therapy might require cervical spine collar will watch her kidney function and CK and try to treat the UTI more aggressively see if patient improve at this point. 08/05/2016: Patient developed to have a chest pain that went to the back earlier today she had a twelve-lead EKG that showed normal sinus rhythm with no acute ST -T wave changes, cardiac enzymes are negative, she continues to have elevated CPK due to rhabdo, we will monitor the patient very closely recheck CPK tomorrow morning. 08/06/2016: Patient is feeling better today she denies any chest pain, shortness breath, she has no abdominal pain, we will decrease her IV fluid . 08/07/2016: feeling better and going to bathroom alot ,refused lasix.Likely will be discharged in AM. Objective - Vital Signs Vital signs: Vital Signs Temp 98.4 F 08/06/16 07:00 Pulse 96 08/06/16 07:24 Resp 22 08/06/16 07:00 BP 163/62 08/06/16 07:00 Pulse Ox 94 L 08/06/16 07:00 Intake & Output 08/05/16 08/06/16 08/06/16 18:59 06:59 18:59 Weight 81.647 kg Other: # Voids 1 3 1 - Exam - Constitutional General appearance: no average body habitus, cooperative, disheveled, no mild distress, no morbidly obese, no no acute distress, no obese, no severe distress , no thin - EENT Eyes: no abnormal pupil, no anicteric sclerae, no disc margins sharp, no edentulous, no EOMI, no PERRLA, no fundus normal, no photophobia, no dentition normal, no poor dentition, no ptosis, no scleral icterus, normal appearance ENT: hard of hearing, no hearing grossly normal, no NA/AT, normal oropharynx, no other, no pharyngeal erythema, no thrush, no tonsillar exudates, no tonsillar swelling Ears: bilateral: normal - Neck Quite bit pain and discomfort with significant restriction to motion. Neck: no lymphadenopathy, no normal ROM, no other, rigidity, no stridor, no thyromegaly Carotids: bilateral: upstroke normal Thyroid: bilateral: normal size - Respiratory Respiratory: bilateral: diminished, dullness, rales, rhonchi, wheezing - Cardiovascular Rhythm: regular Heart sounds: normal: S1, S2 Abnormal Heart Sounds: systolic murmur, S3 Gallop - Gastrointestinal General gastrointestinal: no absent bowel sounds, decreased bowel sounds, no distended, no hepatomegaly, no hyperactive bowel sounds, no normal bowel sounds , no organomegaly, no rigid, no scaphoid, soft, splenomegaly, no tenderness, no umbilical hernia, no ventral hernia - Integumentary Integumentary: no calor, no cellulitis, no cyanotic, no decreased turgor, no flushed, no jaundiced, normal, no normal turgor, pale, rash, no ulcer - Neurologic Neurologic: CNII-XII intact - Musculoskeletal Musculoskeletal: no gait normal, generalized weakness, no strength equal bilaterally, no right sided weakness, no left sided weakness - Psychiatric Psychiatric: A&O x's 3, no appropriate affect, no intact judgment & insight - Labs CBC & Chem 7: 08/06/16 07:40 08/06/16 07:40 Labs: Abnormal Lab Results - Last 24 Hours (Table) 08/05/16 08/05/16 08/05/16 Range/Units 09:59 11:08 13:40 Carbon Dioxide 21 L (22-30) mmol/L Glucose 247 H (74-99) mg/dL POC Glucose (mg/dL) 214 H (75-99) mg/dL Creatine Kinase (30-135) U/L Total Creatine Kinase 283 H (30-135) U/L 08/05/16 08/05/16 08/06/16 Range/Units 16:56 21:19 06:54 Carbon Dioxide (22-30) mmol/L Glucose (74-99) mg/dL POC Glucose (mg/dL) 194 H 200 H 138 H (75-99) mg/dL Creatine Kinase (30-135) U/L Total Creatine Kinase (30-135) U/L 08/06/16 Range/Units 07:40 Carbon Dioxide (22-30) mmol/L Glucose 158 H (74-99) mg/dL POC Glucose (mg/dL) (75-99) mg/dL Creatine Kinase 215 H (30-135) U/L Total Creatine Kinase (30-135) U/L Assessment and Plan Plan: Assessment and Plan Plan: 1 head trauma: Patient had mild change in mental status will continue neuro exam every 2 hours overnight continue to watch patient's symptoms carefully at this point. 2 post fall with cervical spine strain and injury: Continue cervical collar will lab start physical therapy gradually and patient will require to move with help. 3 rhabdomyolysis: Mild we'll continue to watch CK bun and creatinine continue hydration for now. 4 UTI: Patient was started on IV antibiotic was switched to oral antibiotic in the next 24 hours continue hydration will add cranberry or Azo. 5 severe debility not been able to ablate and walk: Aggravated by the fall was start physical therapy and hopefully with muscle relaxer and low dose of pain management patient can ablate with help. 6 change of mental status: Secondary to UTI rhabdomyolysis and closed head trauma continue to watch mentation. 7 CAD: No chest pain or angina at this point. 8 hypertension: Has been doing well on Lopressor and Aldactone. 9 COPD: Patient has been on DuoNeb and Ventolin HFA as a rescue inhaler if needed require will add steroid inhaler. 10 type 2 diabetes: Patient has been on insulin 70 3040 units twice a day continue patient with Accu-Chek sliding skills coverage. 11 GI prophylaxis: Patient be on Pepcid 20 mg daily. Next 12 DVT prophylaxis: Patient will be on heparin 5000 units subcutaneous in his twice a day. Next CODE STATUS: Full code. Next
[2016-08-07] MEDS: IPRATROPIUM-ALBUTEROL 3 ML NEB INHALATION PRN (10:42)
[2016-08-07 12:35] LABS: Glucose,Whole Blood 139 mg/dL (75-99)
--- NOTE | 2016-08-07 12:38 | P.PN ---
Subjective 80-year-old female [address] Thomason patient with past medical history of CAD, COPD, CVA and TIA who is known to have diabetes hypertension hyperlipidemia chronic back pain and spinal stenosis with multiple other medical problem. 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 Patient edition 2 it is not able to ambulate and walk and had significant change in mental status at the time. Patient was started on treatment was placed on fluid hydration pain management patient was started physical therapy might require cervical spine collar will watch her kidney function and CK and try to treat the UTI more aggressively see if patient improve at this point. 08/05/2016: Patient developed to have a chest pain that went to the back earlier today she had a twelve-lead EKG that showed normal sinus rhythm with no acute ST -T wave changes, cardiac enzymes are negative, she continues to have elevated CPK due to rhabdo, we will monitor the patient very closely recheck CPK tomorrow morning. 08/06/2016: Patient is feeling better today she denies any chest pain, shortness breath, she has no abdominal pain, we will decrease her IV fluid . 08/07/2016: Patient is feeling quite weak today and she is in need for assistance with the physical therapy, patient will benefit from subacute rehabilitation at [facility] this will be done in the next 24 hours. Objective - Vital Signs Vital signs: Vital Signs Temp 97.1 F L 08/07/16 07:00 Pulse 88 08/07/16 10:54 Resp 16 08/07/16 07:00 BP 157/93 08/07/16 07:00 Pulse Ox 94 L 08/07/16 07:00 Intake & Output 08/06/16 08/07/16 08/07/16 18:59 06:59 18:59 Intake Total 900 Output Total 200 Balance 900 -200 Intake: Oral 900 Output: Urine 200 Other: Voiding Method Bedside Commode Toilet # Voids 1 2 # Bowel Movements 3 - Exam - Constitutional General appearance: no average body habitus, cooperative, disheveled, no mild distress, no morbidly obese, no no acute distress, no obese, no severe distress , no thin - EENT Eyes: no abnormal pupil, no anicteric sclerae, no disc margins sharp, no edentulous, no EOMI, no PERRLA, no fundus normal, no photophobia, no dentition normal, no poor dentition, no ptosis, no scleral icterus, normal appearance ENT: hard of hearing, no hearing grossly normal, no NA/AT, normal oropharynx, no other, no pharyngeal erythema, no thrush, no tonsillar exudates, no tonsillar swelling Ears: bilateral: normal - Neck Quite bit pain and discomfort with significant restriction to motion. Neck: no lymphadenopathy, no normal ROM, no other, rigidity, no stridor, no thyromegaly Carotids: bilateral: upstroke normal Thyroid: bilateral: normal size - Respiratory Respiratory: bilateral: diminished, dullness, rales, rhonchi, wheezing - Cardiovascular Rhythm: regular Heart sounds: normal: S1, S2 Abnormal Heart Sounds: systolic murmur, S3 Gallop - Gastrointestinal General gastrointestinal: no absent bowel sounds, decreased bowel sounds, no distended, no hepatomegaly, no hyperactive bowel sounds, no normal bowel sounds , no organomegaly, no rigid, no scaphoid, soft, splenomegaly, no tenderness, no umbilical hernia, no ventral hernia - Integumentary Integumentary: no calor, no cellulitis, no cyanotic, no decreased turgor, no flushed, no jaundiced, normal, no normal turgor, pale, rash, no ulcer - Neurologic Neurologic: CNII-XII intact - Musculoskeletal Musculoskeletal: no gait normal, generalized weakness, no strength equal bilaterally, no right sided weakness, no left sided weakness - Psychiatric Psychiatric: A&O x's 3, no appropriate affect, no intact judgment & insight - Labs CBC & Chem 7: 08/06/16 07:40 08/06/16 07:40 Labs: Abnormal Lab Results - Last 24 Hours (Table) 08/06/16 08/06/16 08/07/16 Range/Units 17:05 20:55 07:08 POC Glucose (mg/dL) 272 H 314 H 111 H (75-99) mg/dL 08/07/16 Range/Units 12:28 POC Glucose (mg/dL) 139 H (75-99) mg/dL Assessment and Plan Plan: Assessment and Plan Plan: 1 head trauma: Patient had mild change in mental status will continue neuro exam every 2 hours overnight continue to watch patient's symptoms carefully at this point. 2 post fall with cervical spine strain and injury: Continue cervical collar will lab start physical therapy gradually and patient will require to move with help. 3 rhabdomyolysis: Mild we'll continue to watch CK bun and creatinine continue hydration for now. 4 UTI: Patient was started on IV antibiotic was switched to oral antibiotic in the next 24 hours continue hydration will add cranberry or Azo. 5 severe debility not been able to ablate and walk: Aggravated by the fall was start physical therapy and hopefully with muscle relaxer and low dose of pain management patient can ablate with help. 6 change of mental status: Secondary to UTI rhabdomyolysis and closed head trauma continue to watch mentation. 7 CAD: No chest pain or angina at this point. 8 hypertension: Has been doing well on Lopressor and Aldactone. 9 COPD: Patient has been on DuoNeb and Ventolin HFA as a rescue inhaler if needed require will add steroid inhaler. 10 type 2 diabetes: Patient has been on insulin 70 3040 units twice a day continue patient with Accu-Chek sliding skills coverage. 11 GI prophylaxis: Patient be on Pepcid 20 mg daily. Next 12 DVT prophylaxis: Patient will be on heparin 5000 units subcutaneous in his twice a day. Next 13. Extended care facility placement for physical therapy rehabilitation patient elected to go to [facility].
--- NOTE | 2016-08-07 14:50 | P.DS ---
Providers Date of admission: 08/04/16 12:47 Attending physician: Ryan Enriquez Primary care physician: Axel Thomason [facility] Course: 80-year-old female [address] Thomason patient with past medical history of CAD, COPD, CVA and TIA who is known to have diabetes hypertension hyperlipidemia chronic back pain and spinal stenosis with multiple other medical problem. 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 Patient edition 2 it is not able to ambulate and walk and had significant change in mental status at the time. Patient was started on treatment was placed on fluid hydration pain management patient was started physical therapy might require cervical spine collar will watch her kidney function and CK and try to treat the UTI more aggressively see if patient improve at this point. 08/05/2016: Patient developed to have a chest pain that went to the back earlier today she had a twelve-lead EKG that showed normal sinus rhythm with no acute ST -T wave changes, cardiac enzymes are negative, she continues to have elevated CPK due to rhabdo, we will monitor the patient very closely recheck CPK tomorrow morning. 08/06/2016: Patient is feeling better today she denies any chest pain, shortness breath, she has no abdominal pain, we will decrease her IV fluid . 08/07/2016: feeling better and going to bathroom alot ,refused lasix.Likely will be discharged in AM. Discharge diagnoses: 1 Closed head injury. 2 post fall with cervical spine strain and injury 3 rhabdomyolysis 4 UTI 5 severe debility. 6 change of mental status 7 CAD 8 hypertension and hypertensive cardiovascular disease. 9 COPD moderate. 10 type 2 diabetes. Patient Condition at Discharge: Fair Plan - Discharge Summary New Discharge Prescriptions: New Acetaminophen Tab [Tylenol] 650 mg PO Q6HR PRN tab PRN Reason: Mild Pain Or Fever > 100.5 Cefuroxime [Ceftin] 250 mg PO BID #20 tab LORazepam [Ativan] 2 mg PO TID PRN #90 tab PRN Reason: Anxiety Pantoprazole [Protonix] 40 mg PO AC-BRKFST tab Continue Ipratropium/Albuterol Sulfate [Duoneb 0.5 mg-3 mg/3 ml Soln] 3 ml INHALATION RT-QID PRN PRN Reason: Shortness Of Breath Albuterol Inhaler [Ventolin Hfa Inhaler] 1 - 2 puff INHALATION RT-Q6H PRN PRN Reason: sob Metoprolol Tartrate [Lopressor] 25 mg PO DAILY Insulin Aspart Protam & Aspart [NovoLOG MIX 70-30 Flexpen] 40 unit SQ BID Metoprolol Tartrate [Lopressor] 50 mg PO HS Spironolactone [Aldactone] 100 mg PO DAILY Discontinued LORazepam [Ativan] 2 mg PO TID PRN PRN Reason: Anxiety Discharge Medication List Ipratropium/Albuterol Sulfate [Duoneb 0.5 mg-3 mg/3 ml Soln] 3 ml INHALATION RT- QID PRN 06/12/13 [History] Albuterol Inhaler [Ventolin Hfa Inhaler] 1 - 2 puff INHALATION RT-Q6H PRN [History] Metoprolol Tartrate [Lopressor] 25 mg PO DAILY 05/19/14 [History] Insulin Aspart Protam & Aspart [NovoLOG MIX 70-30 Flexpen] 40 unit SQ BID [History] Metoprolol Tartrate [Lopressor] 50 mg PO HS 08/04/16 [History] Spironolactone [Aldactone] 100 mg PO DAILY 08/04/16 [History] Acetaminophen Tab [Tylenol] 650 mg PO Q6HR PRN tab 08/07/16 [Rx] Cefuroxime [Ceftin] 250 mg PO BID #20 tab 08/07/16 [Rx] LORazepam [Ativan] 2 mg PO TID PRN #90 tab 08/07/16 [Rx] Pantoprazole [Protonix] 40 mg PO AC-BRKFST tab 08/07/16 [Rx] Follow up Appointment(s)/Referral(s): Axel Thomason DO [Primary Care Provider] - 1-2 days Patient Instructions/Handouts: Type 2 Diabetes in Adults (DC), Fall Prevention for Older Adults (ED) Discharge Disposition: TRANSFER TO SNF/ECF
[2016-08-07 15:32] VITALS: BP 157/73; PULSE 96; TEMP 97.5
--- NOTE | 2016-08-07 15:45 | CDI ---
In responding to this query, please exercise your independent professional judgment. The [facility] Coding Staff and Clinical Documentation Specialists appreciate your assistance in clarifying documentation, maintaining compliance with coding guidelines, accurately documenting patients condition and capturing severity of illness. The fact that a question is asked does not imply that any particular answer is desired or expected. Communication forms are a method of clarifying documentation and are not made part of the Legal Health Record. Thank you in advance for your clarification. Last Revision, December 2014 Jaelyn Lopez [address] [place] [address] Documentation Clarification Form Date: 08/07/2016 3:31:00 PM From: Vasiliy Fraga, RN, BSN, CDI, CCDS Admit Date: 08/04/2016 12:47:00 PM Patient Name: Kelly Beasley Visit Number: [id number] Dr. Leisa Doe: "Change of mental status secondary to UTI, rhabdo and closed head trauma" is documented in the progress notes. History/Risk factors: 80 yo female with a history of COPD, chronic back pain, emphysema, IBS, urinary incontinence presents with complaints of back/neck and pelvic pain after falling out of bed. She laid on the floor for the 4 hours because she was to weak to get up on her own. She is currently being treated for UTI. She is documented to have severe debility and not able to walk. Clinical Indicators: CPK: 580, glucose: 229, +UA CT brain: no acute ICH or midline shift, chronic small vessel ischemic change Treatment: IVF @100cc/hr, daily CPK, neuro checks q shift, Rocephin, Ceftin, PT/ OT, fall precautions In your professional opinion, can you please clarify the cause of the patient's change of mentation, if known? Metabolic Encephalopathy Toxic Encephalopathy Traumatic Encephalopathy Other, please specify Unable to determine Please document in your progress notes and discharge summary in order to capture severity of illness and risk of mortality. Include clinical findings that support your diagnosis. FYI: Press F11 to launch patient chart. Place X here if this finding has no clinical significance, is not applicable or if you are not able to provide any additional documentation. EZIO
[2016-08-07] MEDS ORDERED: CEFUROXIME 250 MG TAB PO SCH (21:00)
[2016-08-08] MEDS ORDERED: PANTOPRAZOLE 40 MG TABLET PO SCH (07:30)
--- NOTE | 2016-08-21 14:28 | CDI ---
In responding to this query, please exercise your independent professional judgment. The [facility] Coding Staff and Clinical Documentation Specialists appreciate your assistance in clarifying documentation, maintaining compliance with coding guidelines, accurately documenting patients condition and capturing severity of illness. The fact that a question is asked does not imply that any particular answer is desired or expected. Communication forms are a method of clarifying documentation and are not made part of the Legal Health Record. Thank you in advance for your clarification. Last Revision, December [address] [place] [place] [address] Documentation Clarification Form Date: 08/07/2016 3:31:00 PM From: Vasiliy Fraga, RN, BSN, CDI, CCDS Admit Date: 08/04/2016 12:47:00 PM Patient Name: Kelly Beasley Visit Number: [id number] Discharge Date: 08/07/16 Dr. Leisa Doe: "Change of mental status secondary to UTI, Rhabdo and closed head trauma" is documented in the progress notes. History/Risk factors: 80 yo female with a history of COPD, chronic back pain, emphysema, IBS, urinary incontinence presents with complaints of back/neck and pelvic pain after falling out of bed. She laid on the floor for the 4 hours because she was to weak to get up on her own. She is currently being treated for UTI. She is documented to have severe debility and not able to walk. Clinical Indicators: CPK: 580, glucose: 229 CT brain: no acute ICH or midline shift, chronic small vessel ischemic change Treatment: IVF @100cc/hr, daily CPK, neuro checks q shift, Rocephin, Ceftin, PT/ OT, fall precautions In your professional opinion, can you please clarify the cause of the patient's change of mentation, if known? Metabolic Encephalopathy Toxic Encephalopathy Traumatic Encephalopathy Other, please specify Unable to determine Please document in your progress notes and discharge summary in order to capture severity of illness and risk of mortality. Include clinical findings that support your diagnosis. FYI: Press F11 to launch patient chart. Place X here if this finding has no clinical significance, is not applicable or if you are not able to provide any additional documentation. EZIO
== END 2016-08-07 16:46 | DRG 552 ==
LOC: EC 07:44 → 4MS4W 12:47
PROVIDERS: ADMIT Internal Medicine Geriatric Medicine; ATTEND Internal Medicine Geriatric Medicine
DX: S16.1XXA Strain of muscle, fascia and tendon at neck level, initial encounter (principal); M62.82 Rhabdomyolysis; I11.9 Hypertensive heart disease without heart failure; N39.0 Urinary tract infection, site not specified; J44.9 Chronic obstructive pulmonary disease, unspecified; E11.9 Type 2 diabetes mellitus without complications; W06.XXXA Fall from bed, initial encounter; E78.5 Hyperlipidemia, unspecified; I25.10 Atherosclerotic heart disease of native coronary artery without angina pectoris; K21.9 Gastro-esophageal reflux disease without esophagitis; K58.9 Irritable bowel syndrome, unspecified; S09.90XA Unspecified injury of head, initial encounter; Z79.4 Long term (current) use of insulin; Z79.899 Other long term (current) drug therapy; Z82.49 Family history of ischemic heart disease and other diseases of the circulatory system; Z86.73 Personal history of transient ischemic attack (TIA), and cerebral infarction without residual deficits; Z87.891 Personal history of nicotine dependence; Z88.6 Allergy status to analgesic agent; Z88.0 Allergy status to penicillin; F07.81 Postconcussional syndrome
CPT/HCPCS: 36415; 70450; 71020; 72070; 72100; 72125; 72170; 80053; 81001; 82550; 82553; 83036; 84484; 85025; 85610; 85730; 93005; 94640; 96361; 96374; 96375; 99285

== ENCOUNTER 2017-02-28 21:28 | Inpatient (IN) | payer MEDICARE, OTHER ==
[2017-02-28] MEDS ORDERED: IPRATROPIUM-ALBUTEROL 3 ML NEB INHALATION STA (21:51)
--- NOTE | 2017-02-28 21:59 | ED ---
General Adult HPI <Kailash Garvey - Last Filed: 03/01/17 00:32> - General Source: patient, RN notes reviewed Mode of arrival: wheelchair Limitations: no limitations <René Sanchez - Last Filed: 03/01/17 00:41> - General Chief complaint: Skin/Abscess/Foreign Body Stated complaint: Leg Pain Time Seen by Provider: 02/28/17 21:43 - History of Present Illness Initial comments: This a 81-year-old female presents emergency Department chief complaint right leg infection, shortness of breath. Patient states that she's had increase in swelling to her right leg along with the redness and what appeared to be a boil. Patient states that she noticed that it ruptured and there was pus that was yellow and green that drained. She does complain of pain of the right leg. Patient denies any injury she has no history DVT. She does complain that she has chronic lower extremity swelling bilaterally. She denies history of CHF and denies history of taking any diuretics. Patient does admit to having COPD is having some shortness of breath currently as she relates this to not receiving her complete breathing treatment. Patient has had a cough last few days states it is dry nonproductive. She denies any known fever, chills, chest pain. Patient states she does wear oxygen at nighttime her consular officer is Dr. Reyna (René Sanchez) - Related Data Home Medications Medication Instructions Recorded Confirmed Ipratropium/Albuterol Sulfate 3 ml INHALATION RT-QID PRN 06/12/13 02/28/17 [Duoneb 0.5 mg-3 mg/3 ml Soln] Albuterol Inhaler [Ventolin Hfa 1 - 2 puff INHALATION RT-Q6H PRN 05/19/14 Inhaler] Metoprolol Tartrate [Lopressor] 25 mg PO DAILY 05/19/14 02/28/17 Insulin Aspart Protam & Aspart 48 unit SQ BID 06/07/15 02/28/17 [NovoLOG MIX 70-30 Flexpen] Metoprolol Tartrate [Lopressor] 50 mg PO HS 08/04/16 02/28/17 Previous Rx's Medication Instructions Recorded LORazepam [Ativan] 2 mg PO TID PRN #90 tab 08/07/16 Allergies Allergy/AdvReac Type Severity Reaction Status Date / Time iodine Allergy Severe Unknown Verified 02/28/17 21:47 blue dye Allergy Swelling Verified 02/28/17 21:47 bumetanide [From Bumex] Allergy Swelling Verified 02/28/17 21:47 diphenhydramine Allergy Unknown Verified 02/28/17 21:47 [From Benadryl] glipizide [From Glucotrol] Allergy Swelling Verified 02/28/17 21:47 metformin Allergy Swelling Verified 02/28/17 21:47 naproxen sodium [From Aleve] Allergy Swelling Verified 02/28/17 21:47 Penicillins Allergy Swelling Verified 02/28/17 21:47 codeine AdvReac Nausea & Verified 02/28/17 21:47 Vomiting furosemide [From Lasix] AdvReac Abdominal Verified 02/28/17 21:47 Pain levofloxacin [From Levaquin] AdvReac Abdominal Verified 02/28/17 21:47 Pain morphine AdvReac Nausea & Verified 02/28/17 21:47 Vomiting nateglinide [From Starlix] AdvReac Unknown Verified 02/28/17 21:47 nitrofurantoin AdvReac Nausea & Verified 02/28/17 21:47 [From Macrobid] Vomiting & Diarrhea nitrofurantoin AdvReac Nausea & Verified 02/28/17 21:47 macrocrystalline Vomiting & [From Macrobid] Diarrhea Sulfa (Sulfonamide AdvReac Abdominal Verified 02/28/17 21:47 Antibiotics) Pain Review of Systems ROS Other: All systems not noted in ROS Statement are negative. <Kailash Garvey - Last Filed: 03/01/17 00:32> ROS Other: All systems not noted in ROS Statement are negative. <René Sanchez - Last Filed: 03/01/17 00:41> ROS Statement: Those systems with pertinent positive or pertinent negative responses have been documented in the HPI. Past Medical History Past Medical History: Asthma, Chest Pain / Angina, COPD, CVA/TIA, Diabetes Mellitus, GERD/Reflux, Hyperlipidemia, Hypertension, Osteoarthritis (OA), Pneumonia, Vascular Disorder Additional Past Medical History / Comment(s): NIDDM type II, neuropathy bilateral feet, chronic back pain, spinal stenosis, PAD, bilateral varicose veins, bronchitis, emphysema, irritable bowel syndrome, polyps, urinary incontinence, UTI, arthritis in legs bilaterally, tinnitus bilaterally, cataracts bilaterally.. History of Any Multi-Drug Resistant Organisms: None Reported Past Surgical History: Appendectomy, Cholecystectomy, Hysterectomy, Orthopedic Surgery Additional Past Surgical History / Comment(s): EGD/colonoscopy, hemorrhoidectomy , bilateral feet bunionectomies and corns removed. Past Anesthesia/Blood Transfusion Reactions: No Reported Reaction Past Psychological History: Anxiety Smoking Status: Former smoker Past Alcohol Use History: None Reported Past Drug Use History: None Reported - Past Family History Father History Unknown: Yes Family Medical History: Unable to Obtain Additional Family Medical History / Comment(s): at 32 from drowning Mother History Unknown: Yes Family Medical History: Myocardial Infarction ([facility]) Additional Family Medical History / Comment(s): Mother of a [facility] at the age of 68yrs. Brother(s) History Unknown: Yes Family Medical History: Unable to Obtain Sister(s) History Unknown: Yes Family Medical History: Hypertension, Osteoarthritis (OA) Daughter(s) History Unknown: Yes Additional Family Medical History / Comment(s): back issues <René Sanchez - Last Filed: 03/01/17 00:41> General Exam Limitations: no limitations General appearance: alert, in no apparent distress Head exam: Present: atraumatic, normocephalic, normal inspection Respiratory exam: Present: respiratory distress (Mild), wheezes. Absent: rales , rhonchi, stridor Cardiovascular Exam: Present: normal rhythm, tachycardia, normal heart sounds. Absent: systolic murmur, diastolic murmur, rubs, gallop, clicks Extremities exam: Present: other (Right leg there is moderate swelling, tenderness with palpation and erythema pedal pulses are equal bilaterally, there is an open wound noted to the right anterior lower leg, there is no drainage at this time. Bilateral lower extremity there is noted erythema and swelling but greater on the right) Skin exam: Present: warm, dry <René Sanchez - Last Filed: 03/01/17 00:41> Course <Kailash Garvey - Last Filed: 03/01/17 00:32> <René Sanchez - Last Filed: 03/01/17 00:41> Vital Signs 02/28/17 02/28/17 02/28/17 21:33 22:24 22:39 Temperature 98.6 F Pulse Rate 110 H 97 99 Respiratory 22 Rate Blood Pressure 185/79 O2 Sat by Pulse 95 Oximetry 02/28/17 23:47 Temperature Pulse Rate 105 H Respiratory 20 Rate Blood Pressure 170/77 O2 Sat by Pulse 97 Oximetry - Reevaluation(s) Reevaluation #1: 03/01/17 00:32 Patient reevaluated by myself, Dr. Garvey. Patient resting comfortably in bed. Patient does have decreased air exchange with mild increased respiratory effort. Patient states she still feels short of breath. Patient has cellulitis by lower bilateral lower legs, more so on the right. There is extension to just above the knee on the right. There is also a apparent wound forming and anterior right lawson. Case was discussed in detail with Dr. Doe, who will admit for Dr. Thomason. Patient and family updated (Kailash Garvey) EKG Findings - EKG Comments: EKG Findings:: EKG performed at 22:57 normal sinus rhythm with a rate of 100 MD 190 QRS 66 QTC is QTC 350/451 <René Sanchez - Last Filed: 03/01/17 00:41> Medical Decision Making - Lab Data Result diagrams: 02/28/17 22:03 02/28/17 22:03 <Kailash Garvey - Last Filed: 03/01/17 00:32> - Lab Data Result diagrams: 02/28/17 22:03 02/28/17 22:03 <René Sanchez - Last Filed: 03/01/17 00:41> - Medical Decision Making 81-year-old female presented for leg infection, COPD issues. Patient be admitted for COPD exacerbation, right leg cellulitis. Patient does not meet sepsis criteria. Patient is to give make an tachycardic secondary to her COPD. Patient was started on antibiotics, steroids and admitted for further breathing treatments. (René Sanchez) - Lab Data Lab Results 02/28/17 02/28/17 02/28/17 Range/Units 22:03 22:03 22:03 WBC 8.4 (3.8-10.6) k/uL RBC 4.36 (3.80-5.40) m/uL Hgb 12.5 (11.4-16.0) gm/dL Hct 38.1 (34.0-46.0) % MCV 87.4 (80.0-100.0) fL MCH 28.7 (25.0-35.0) pg MCHC 32.8 (31.0-37.0) g/dL RDW 16.2 H (11.5-15.5) % Plt Count 266 (150-450) k/uL Neutrophils % 77 % Lymphocytes % 14 % Monocytes % 5 % Eosinophils % 2 % Basophils % 1 % Neutrophils # 6.5 (1.3-7.7) k/uL Lymphocytes # 1.2 (1.0-4.8) k/uL Monocytes # 0.4 (0-1.0) k/uL Eosinophils # 0.2 (0-0.7) k/uL Basophils # 0.1 (0-0.2) k/uL Anisocytosis Slight PT (9.0-12.0) sec INR (<1.2) APTT (22.0-30.0) sec Sodium 139 (137-145) mmol/L Potassium 4.4 (3.5-5.1) mmol/L Chloride 103 (98-107) mmol/L Carbon Dioxide 25 (22-30) mmol/L Anion Gap 11 mmol/L BUN 14 (7-17) mg/dL Creatinine 1.07 H (0.52-1.04) mg/dL Est GFR (MDRD) Af Amer 60 (>60 ml/min/1.73 sqM) Est GFR (MDRD) Non-Af 49 (>60 ml/min/1.73 sqM) Glucose 357 H (74-99) mg/dL Plasma Lactic Acid Livan (0.7-2.0) mmol/L Calcium 9.4 (8.4-10.2) mg/dL Magnesium 1.9 (1.6-2.3) mg/dL Total Bilirubin 0.4 (0.2-1.3) mg/dL AST 16 (14-36) U/L ALT 29 (9-52) U/L Alkaline Phosphatase 86 (38-126) U/L Total Creatine Kinase 49 (30-135) U/L CK-MB (CK-2) 1.4 (0.0-2.4) ng/mL CK-MB (CK-2) Rel Index 2.9 Troponin I <0.012 (0.000-0.034) ng/mL NT-Pro-B Natriuret Pep pg/mL Total Protein 6.7 (6.3-8.2) g/dL Albumin 3.9 (3.5-5.0) g/dL 02/28/17 02/28/17 02/28/17 Range/Units 22:03 22:03 22:03 WBC (3.8-10.6) k/uL RBC (3.80-5.40) m/uL Hgb (11.4-16.0) gm/dL Hct (34.0-46.0) % MCV (80.0-100.0) fL MCH (25.0-35.0) pg MCHC (31.0-37.0) g/dL RDW (11.5-15.5) % Plt Count (150-450) k/uL Neutrophils % % Lymphocytes % % Monocytes % % Eosinophils % % Basophils % % Neutrophils # (1.3-7.7) k/uL Lymphocytes # (1.0-4.8) k/uL Monocytes # (0-1.0) k/uL Eosinophils # (0-0.7) k/uL Basophils # (0-0.2) k/uL Anisocytosis PT 9.6 (9.0-12.0) sec INR 1.0 (<1.2) APTT 22.9 (22.0-30.0) sec Sodium (137-145) mmol/L Potassium (3.5-5.1) mmol/L Chloride (98-107) mmol/L Carbon Dioxide (22-30) mmol/L Anion Gap mmol/L BUN (7-17) mg/dL Creatinine (0.52-1.04) mg/dL Est GFR (MDRD) Af Amer (>60 ml/min/1.73 sqM) Est GFR (MDRD) Non-Af (>60 ml/min/1.73 sqM) Glucose (74-99) mg/dL Plasma Lactic Acid Livan 2.0 (0.7-2.0) mmol/L Calcium (8.4-10.2) mg/dL Magnesium (1.6-2.3) mg/dL Total Bilirubin (0.2-1.3) mg/dL AST (14-36) U/L ALT (9-52) U/L Alkaline Phosphatase (38-126) U/L Total Creatine Kinase (30-135) U/L CK-MB (CK-2) (0.0-2.4) ng/mL CK-MB (CK-2) Rel Index Troponin I (0.000-0.034) ng/mL NT-Pro-B Natriuret Pep 218 pg/mL Total Protein (6.3-8.2) g/dL Albumin (3.5-5.0) g/dL Disposition <Kailash Garvey - Last Filed: 03/01/17 00:32> <René Sanchez - Last Filed: 03/01/17 00:41> Clinical Impression: Dyspnea, Acute exacerbation of chronic obstructive airways disease, Cellulitis of right leg, Leg edema, Hyperglycemia Disposition: ADMITTED IP TO THIS HOSP Condition: Fair Referrals: Axel Thomason DO [Primary Care Provider] - 1-2 days
[2017-02-28 22:22] LABS: Anisocytosis Slight; Basophils # (A) 0.1 k/uL (0-0.2); Basophils % (A) 1 %; Eosinophils # (A) 0.2 k/uL (0-0.7); Eosinophils % (A) 2 %; HCT 38.1 % (34.0-46.0); HGB 12.5 gm/dL (11.4-16.0); Lymphocytes # (A) 1.2 k/uL (1.0-4.8); Lymphocytes % (A) 14 %; MCH 28.7 pg (25.0-35.0); MCHC 32.8 g/dL (31.0-37.0); MCV 87.4 fL (80.0-100.0); Mean Platelet Volume 8.1; Monocytes # (A) 0.4 k/uL (0-1.0); Monocytes % (A) 5 %; Neutrophils # (A) 6.5 k/uL (1.3-7.7); Neutrophils % (A) 77 %; Platelet Count 266 k/uL (150-450); RBC 4.36 m/uL (3.80-5.40); RDW 16.2 % (11.5-15.5); WBC 8.4 k/uL (3.8-10.6)
[2017-02-28 22:31] LABS: Albumin 3.9 g/dL (3.5-5.0); Calcium 9.4 mg/dL (8.4-10.2); Magnesium 1.9 mg/dL (1.6-2.3); Partial Thromboplastin Time 22.9 sec (22.0-30.0); Potassium 4.4 mmol/L (3.5-5.1); Prothrombin Time 9.6 sec (9.0-12.0); Total Bilirubin 0.4 mg/dL (0.2-1.3); Total Protein 6.7 g/dL (6.3-8.2)
[2017-02-28 22:42] LABS: Creatine Kinase 49 U/L (30-135)
[2017-02-28 22:55] LABS: Creatine Kinase MB 1.4 ng/mL (0.0-2.4); Troponin I <0.012 ng/mL (0.000-0.034)
--- NOTE | 2017-02-28 23:01 | XR ---
EXAMINATION TYPE: XR chest 2V DATE OF EXAM: 02/28/2017 COMPARISON: 08/04/2016 HISTORY: Difficulty breathing TECHNIQUE: Frontal and lateral views of the chest are obtained. FINDINGS: There is no heart failure nor confluent pneumonic infiltrate. There are small linear densi ty in the right middle lobe. Thoracic aorta is atheromatous. There is no evidence of pleural effusion . IMPRESSION: There is new minimal subsegmental atelectasis in the right middle lobe compared to old e xam. No heart failure.
--- NOTE | 2017-02-28 23:02 | XR ---
EXAMINATION TYPE: XR tibia fibula RT DATE OF EXAM: 02/28/2017 COMPARISON: NONE HISTORY: Pain and swelling TECHNIQUE: 2 views FINDINGS: There is soft tissue swelling around the lower leg. I see no fracture nor dislocation. Knee joint and ankle joint appear intact. IMPRESSION: Subcutaneous edema. No fracture seen.
--- NOTE | 2017-02-28 23:41 | US ---
EXAMINATION TYPE: US venous doppler duplex LE RT DATE OF EXAM: 02/28/2017 9:52 PM COMPARISON: NONE CLINICAL HISTORY: Pain. Right leg pain and swelling SIDE PERFORMED: Right TECHNIQUE: The lower extremity deep venous system is examined utilizing real time linear array sonog stalin with graded compression, doppler sonography and color-flow sonography. VESSELS IMAGED: External Iliac Vein (EIV) Common Femoral Vein Deep Femoral Vein Greater Saphenous Vein * Femoral Vein Popliteal Vein Small Saphenous Vein * Proximal Calf Veins (* superficial vessels) Right Leg: Negative for DVT No evidence of DVT right leg. IMPRESSION: Negative exam. No evidence of deep venous thrombosis in the right leg.
[2017-03-01] MEDS ORDERED: VANCOMYCIN IV PER PHARMACY 1 EACH MISC MISCELLANE PRN (00:41)
[2017-03-01] MEDS ORDERED: cefTRIAXone IN SWFI 1,000 MG/10 ML SYRINGE IVP STA (00:41)
[2017-03-01] MEDS ORDERED: NALOXONE 0.4 MG/ML 1 ML VIAL IV PRN (00:42)
[2017-03-01] MEDS ORDERED: methylPREDNISolone SOD SUCCI 125 MG/2 ML VIAL IV STA (00:43)
[2017-03-01 01:19] LABS: Glucose,Whole Blood 285 mg/dL (75-99)
[2017-03-01] MEDS ORDERED: INSULIN ASPART 100 UNIT/ML 1 ML 10 ML VIAL SQ STA (01:22)
[2017-03-01 02:27] VITALS: BMI 34.0
[2017-03-01] MEDS: LORazepam 1 MG TAB PO PRN ×2 (02:40→19:04)
[2017-03-01] MEDS ORDERED: VANCOMYCIN 1,500 MG in SODIUM CHLORIDE 0.9% 250 ML IVPB SCH (03:00)
[2017-03-01] MEDS: IPRATROPIUM-ALBUTEROL 3 ML NEB INHALATION SCH ×6 (05:00→20:25)
[2017-03-01] MEDS: IBUPROFEN 600 MG TAB PO PRN ×2 (06:28→19:36)
[2017-03-01] MEDS: methylPREDNISolone SOD SUCCI 125 MG/2 ML VIAL IV SCH ×2 (06:31→12:38)
[2017-03-01 07:14] LABS: Glucose,Whole Blood 342 mg/dL (75-99)
[2017-03-01] MEDS ORDERED: INSULIN ASPART 100 UNIT/ML 1 ML 10 ML VIAL SQ SCH (07:30)
[2017-03-01] MEDS: METOPROLOL TARTRATE 25 MG TAB PO SCH (08:01)
[2017-03-01] MEDS ORDERED: traMADol 50 MG TAB PO PRN (11:35)
[2017-03-01] MEDS ORDERED: SODIUM CHLORIDE 0.65% NASAL SPRAY 44 ML BTL NASAL PRN (11:37)
[2017-03-01 11:38] LABS: Glucose,Whole Blood 415 mg/dL (75-99)
[2017-03-01] MEDS: ACETAMINOPHEN TAB 325 MG TAB PO PRN ×2 (12:23→21:27)
[2017-03-01] MEDS: COLLAGENASE 250 UNIT/GM OINTMENT 30 GM TUBE TOPICAL SCH (12:23)
[2017-03-01] MEDS: INSULIN ASPART 100 UNIT/ML 1 ML 10 ML VIAL SQ SCH ×2 (12:37→18:10)
--- NOTE | 2017-03-01 12:50 | P.HPIM ---
History of Present Illness H&P Date: 03/01/17 Chief Complaint: Right leg infection, shortness of breath This is a 81-year-old female patient of Dr. Thomason with past medical history of CAD, COPD, CVA and TIA, diabetes, hypertension, hyperlipidemia chronic back pain and spinal stenosis. 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 She then had lower leg edema in the area on her pretibial area bubbled up and then started draining green yesterday. She also has increased shortness of breath from her baseline. Her abdomen is distended but she states she is having bowel movements and has on and off diarrhea. She is on home O2 at bedtime only and her pulmonary physician is Dr. Axel elizondo and she has not slept since she came in last evening and is complaining of a headache and throbbing in her feet. She did try Motrin for the headache which was not relieved. Added and Tylenol and may try tramadol for headache. Blood sugars are elevated and an insulin drip will be started. Patient presented to [facility] emergency center and was diagnosed with bilateral lower extremity cellulitis worse on the right and COPD exacerbation. She was tachycardic but afebrile with normal white count. Chest x-ray showed minimal subsegmental atelectasis in the right middle lobe compared to old exam ultrasound of the lower extremity was negative for DVT on the right. Tib-fib x-ray shows subcutaneous edema and no fractures. Patient was started on DuoNeb treatments and vancomycin and admitted to the [facility] floor and a consult was placed with pulmonary medicine. Review of Systems All systems: negative Constitutional: Denies chills, Denies fever Eyes: denies blurred vision, denies pain Ears, nose, mouth and throat: Reports headache, Denies mouth pain, Denies sore throat Cardiovascular: Reports decreased exercise tolerance, Reports dyspnea on exertion, Reports leg edema, Reports shortness of breath, Denies chest pain, Denies lightheadedness, Denies syncope Respiratory: Reports cough, Reports dyspnea, Reports home oxygen, Reports wheezing, Denies cough with sputum, Denies excessive sputum, Denies hemoptysis Gastrointestinal: Reports bloating, Denies abdominal pain, Denies diarrhea, Denies nausea, Denies vomiting Genitourinary: Denies dysuria, Denies hematuria Musculoskeletal: Denies myalgias Integumentary: Denies pruritus, Denies rash Neurological: Denies numbness, Denies weakness Psychiatric: Denies anxiety, Denies depression Endocrine: Denies fatigue, Denies weight change Past Medical History Past Medical History: Asthma, Chest Pain / Angina, COPD, CVA/TIA, Diabetes Mellitus, GERD/Reflux, Hyperlipidemia, Hypertension, Osteoarthritis (OA), Pneumonia, Vascular Disorder Additional Past Medical History / Comment(s): NIDDM type II, neuropathy bilateral feet, chronic back pain, spinal stenosis, PAD, bilateral varicose veins, bronchitis, emphysema, irritable bowel syndrome, polyps, urinary incontinence, UTI, arthritis in legs bilaterally, tinnitus bilaterally, cataracts bilaterally.. History of Any Multi-Drug Resistant Organisms: None Reported Past Surgical History: Appendectomy, Cholecystectomy, Hysterectomy, Orthopedic Surgery Additional Past Surgical History / Comment(s): EGD/colonoscopy, hemorrhoidectomy , bilateral feet bunionectomies and corns removed. Past Anesthesia/Blood Transfusion Reactions: No Reported Reaction Past Psychological History: Anxiety Additional Psychological History / Comment(s): Pt resides alone. She has no assistive device but would like to have a cane and/or walker. She does not drive, family takes her to [employer]. Smoking Status: Former smoker Past Alcohol Use History: None Reported Additional Past Alcohol Use History / Comment(s): Pt started smoking in 1965 and quit in 2016. Past Drug Use History: None Reported Additional Drug Use History / Comment(s): Patient was a smoker of one pack per day. She denies any alcohol use or drug use. She is and lives at home with her . She does have a nebulizer machine at home. She uses home O2 at nighttime. - Past Family History Father History Unknown: Yes Family Medical History: Unable to Obtain Additional Family Medical History / Comment(s): at 32 from drowning Mother History Unknown: Yes Family Medical History: Myocardial Infarction ([place]) Additional Family Medical History / Comment(s): Mother of a [place] at the age of 68yrs. Brother(s) History Unknown: Yes Family Medical History: Unable to Obtain Additional Family Medical History / Comment(s): Patient has 1 brother that has multiple medical problems. Sister(s) History Unknown: Yes Family Medical History: Hypertension, Osteoarthritis (OA) Daughter(s) History Unknown: Yes Additional Family Medical History / Comment(s): back issues Medications and Allergies Home Medications Medication Instructions Recorded Confirmed Type Ipratropium/Albuterol Sulfate 3 ml INHALATION RT-QID PRN 06/12/13 02/28/17 History [Duoneb 0.5 mg-3 mg/3 ml Soln] Albuterol Inhaler [Ventolin Hfa 1 - 2 puff INHALATION RT-Q6H PRN 05/19/14 History Inhaler] Metoprolol Tartrate [Lopressor] 25 mg PO DAILY 05/19/14 02/28/17 History Metoprolol Tartrate [Lopressor] 50 mg PO HS 08/04/16 02/28/17 History Budesonide-Formot 160-4.5 Mcg 2 puff INHALATION RT-BID puff 03/05/17 Rx [Symbicort 160-4.5 Mcg Inhaler] Butalb/APAP/Caff 50-325-40Mg 1 each PO Q4HR PRN tab 03/05/17 Rx [Fioricet 50-325-40] Cephalexin [Keflex] 500 mg PO Q8HR #21 cap 03/05/17 Rx Collagenase [Santyl] 1 applic TOPICAL DAILY applic 03/05/17 Rx Famotidine [Pepcid] 20 mg PO BID tab 03/05/17 Rx Gabapentin [Neurontin] 100 mg PO TID cap 03/05/17 Rx Insulin Aspart [NovoLOG 0 unit SQ ACHS vial 03/05/17 Rx (formulary)] LORazepam [Ativan] 0.5 mg PO TID PRN #90 tab 03/05/17 Rx Torsemide [Demadex] 20 mg PO DAILY tab 03/05/17 Rx guaiFENesin SYRUP 100MG/5ML 200 mg PO Q4H PRN cup 03/05/17 Rx [Robitussin] Azithromycin 250 mg PO DAILY 3 Days #3 tab 03/06/17 Rx Cholestyramine (with Sugar) 4 gm PO BID #20 packet 03/06/17 Rx [Questran] Insulin Aspart [NovoLOG 5 unit SQ AC-TID vial 03/06/17 Rx (formulary)] Insuln Asp Prt/Insulin Aspart 52 unit SQ AC-BID vial 03/06/17 Rx [NovoLOG MIX 70-30 VIAL] predniSONE 20 mg PO DAILY #5 tab 03/06/17 Rx sitaGLIPtin [Januvia] 100 mg PO DAILY #30 tab 03/06/17 Rx Allergies Allergy/AdvReac Type Severity Reaction Status Date / Time iodine Allergy Severe Unknown Verified 02/28/17 21:47 blue dye Allergy Swelling Verified 02/28/17 21:47 bumetanide [From Bumex] Allergy Swelling Verified 02/28/17 21:47 diphenhydramine Allergy Unknown Verified 02/28/17 21:47 [From Benadryl] glipizide [From Glucotrol] Allergy Swelling Verified 02/28/17 21:47 metformin Allergy Swelling Verified 02/28/17 21:47 naproxen sodium [From Aleve] Allergy Swelling Verified 02/28/17 21:47 Penicillins Allergy Swelling Verified 02/28/17 21:47 codeine AdvReac Nausea & Verified 02/28/17 21:47 Vomiting furosemide [From Lasix] AdvReac Abdominal Verified 02/28/17 21:47 Pain levofloxacin [From Levaquin] AdvReac Abdominal Verified 02/28/17 21:47 Pain morphine AdvReac Nausea & Verified 02/28/17 21:47 Vomiting nateglinide [From Starlix] AdvReac Unknown Verified 02/28/17 21:47 nitrofurantoin AdvReac Nausea & Verified 02/28/17 21:47 [From Macrobid] Vomiting & Diarrhea nitrofurantoin AdvReac Nausea & Verified 02/28/17 21:47 macrocrystalline Vomiting & [From Macrobid] Diarrhea Sulfa (Sulfonamide AdvReac Abdominal Verified 02/28/17 21:47 Antibiotics) Pain Physical Exam Vitals: Vital Signs Temp Pulse Pulse Resp BP BP Pulse Ox 03/01/17 07:24 108 H 03/01/17 07:14 108 H 03/01/17 07:00 97 F L 121 H 24 162/80 94 L 03/01/17 05:34 100 03/01/17 05:26 112 H 03/01/17 04:26 109 H 164/70 03/01/17 02:53 101 H 18 03/01/17 02:39 98.8 F 101 H 18 184/81 94 L 03/01/17 01:44 97.7 F 101 H 20 186/88 100 02/28/17 23:47 105 H 20 170/77 97 02/28/17 22:39 99 02/28/17 22:24 97 02/28/17 21:33 98.6 F 110 H 22 185/79 95 Intake and Output 02/28/17 03/01/17 03/01/17 22:59 06:59 14:59 Intake Total 250 Balance 250 Intake: Intake, IV Titration 250 Amount Vancomycin 1,500 mg In 250 Sodium Chloride 0.9% 250 ml @ 125 mls/hr IVPB Q24H [facility] Rx#:[id number] Other: Voiding Method Toilet # Voids 2 Weight 81.647 kg 81.81 kg - Constitutional General appearance: no average body habitus, cooperative, disheveled, no mild distress, no morbidly obese, no no acute distress, no obese, no severe distress , no thin - EENT Eyes: no abnormal pupil, no anicteric sclerae, no disc margins sharp, no edentulous, no EOMI, no PERRLA, no fundus normal, no photophobia, no dentition normal, no poor dentition, no ptosis, no scleral icterus, normal appearance ENT: hard of hearing, no hearing grossly normal, no NA/AT, normal oropharynx, no other, no pharyngeal erythema, no thrush, no tonsillar exudates, no tonsillar swelling Ears: bilateral: normal - Neck Quite bit pain and discomfort with significant restriction to motion. Neck: no lymphadenopathy, no normal ROM, no other, rigidity, no stridor, no thyromegaly Carotids: bilateral: upstroke normal Thyroid: bilateral: normal size - Respiratory Respiratory: bilateral: diminished, dullness, rales, rhonchi, wheezing - Cardiovascular Rhythm: regular Heart sounds: normal: S1, S2 Abnormal Heart Sounds: systolic murmur, S3 Gallop - Gastrointestinal General gastrointestinal: no absent bowel sounds, decreased bowel sounds, no distended, no hepatomegaly, no hyperactive bowel sounds, no normal bowel sounds , no organomegaly, no rigid, no scaphoid, soft, splenomegaly, no tenderness, no umbilical hernia, no ventral hernia - Integumentary Integumentary: no calor, no cellulitis, no cyanotic, no decreased turgor, no flushed, no jaundiced, normal, no normal turgor, pale, rash, no ulcer - Neurologic Neurologic: CNII-XII intact - Musculoskeletal Musculoskeletal: no gait normal, generalized weakness, no strength equal bilaterally, no right sided weakness, no left sided weakness - Psychiatric Psychiatric: A&O x's 3, no appropriate affect, no intact judgment & insight Results CBC & Chem 7: 03/06/17 07:45 03/06/17 07:45 Labs: Abnormal Lab Results - Last 24 Hours (Table) 02/28/17 02/28/17 03/01/17 Range/Units 22:03 22:03 01:18 RDW 16.2 H (11.5-15.5) % Creatinine 1.07 H (0.52-1.04) mg/dL Glucose 357 H (74-99) mg/dL POC Glucose (mg/dL) 285 H (75-99) mg/dL 03/01/17 Range/Units 07:11 RDW (11.5-15.5) % Creatinine (0.52-1.04) mg/dL Glucose (74-99) mg/dL POC Glucose (mg/dL) 342 H (75-99) mg/dL Thrombosis Risk Factor Assmnt - DVT/VTE Prophylaxis DVT/VTE Prophylaxis: Pharmacologic Prophylaxis ordered - Choose All That Apply Each Factor Represents 1 point: Abnormal pulmonary function (COPD), Obesity ( BMI >25), Swollen legs (current) Other Risk Factors: Yes Each Risk Factor Represents 3 Points: Age 75 years or older Other congenital or acquired thrombophilia - If yes, enter type in comment: No Thrombosis Risk Factor Assessment Total Risk Factor Score: 6 Thrombosis Risk Factor Assessment Level: High Risk Assessment and Plan Plan: 1. Acute exacerbation of COPD. Consult with Dr. Avila. Continue DuoNeb treatments, Solu-Medrol 60 mg IV every 6 hours. 2. Cellulitis of the bilateral lower extremities most severe on the right lower extremity with pretibial wound. Consult with Dr. Singer. Patient is currently on vancomycin. 3. Sinus headache unrelieved with ibuprofen. Tylenol will be tried and then tramadol. Patient has ALLERGY to codeine and morphine. Nasal saline rinse added. 4. Hypertension, hypertensive cardiovascular disease. Continue Lopressor 50 mg at bedtime. 5. Diabetes mellitus type 2 uncontrolled with hyperglycemia secondary to steroids. Patient will be started on insulin drip. 6. History of tobacco use and dependence. 7. Osteoarthritis with degenerative disc disease and chronic back pain, stable. 8. Valvular heart disease, stable. 9. GI prophylaxis. Pepcid 20 mg daily. 10. DVT prophylaxis. Lovenox. Patient will be admitted to the hospital for a minimum of 2 night stay. Discharge plan: To be determined. PT and OT added. Impression and plan of care have been directed as dictated by the signing physician. Romy Zuniga nurse practitioner acting as scribe for signing physician.
[2017-03-01] MEDS: INSULIN REGULAR 100 UNIT in SODIUM CHLORIDE 0.9% 100 ML IV SCH ×2 (13:01→20:00)
[2017-03-01 13:35] LABS: Glucose,Whole Blood 384 mg/dL (75-99)
[2017-03-01 14:15] LABS: Glucose,Whole Blood 446 mg/dL (75-99)
[2017-03-01 14:44] LABS: Glucose,Whole Blood 352 mg/dL (75-99)
[2017-03-01 15:08] LABS: Glucose,Whole Blood 345 mg/dL (75-99)
[2017-03-01 15:42] LABS: Glucose,Whole Blood 312 mg/dL (75-99)
--- NOTE | 2017-03-01 16:00 | P.CNPUL ---
History of Present Illness Consult date: 03/01/17 Requesting physician: Leisa Doe Reason for consult: dyspnea, cough Chief complaint: Increasing shortness of breath, cough with sputum production, wheezing History of present illness: Kelly is a 81-year-old white female patient of Dr. Thomason, presented to the emergency department on 02/28/2017 at 2100 after sustaining a mechanical fall one week ago and developing increased swelling in her right leg along with redness, induration, this subsequently ruptured and drained yellow-green pussy material. She was also complaining of increasing shortness of breath, productive cough, wheezing. Does have underlying history of COPD, she is an ex- smoker, used to see Dr. Reyna in our office, although has not seen him in the long time. Denies any fever, chills, chest pain, hemoptysis. She is on DuoNeb nebulized treatments 4 times a day as needed, and has a Ventolin HFA inhaler. Chest x-ray taken in the ED on 02/28/2017 shows new minimal subsegmental atelectasis in the right middle lobe, compared to old exam from . No evidence of heart failure. X-ray of the right tibia and fibula showed subcutaneous edema, but no evidence of fracture. Venous ultrasound of the right leg was negative for DVT. Lab work showed WBC within normal limits of 8.4, hemoglobin of 12.5, no evidence of coagulopathy, no electrolyte abnormality, BUN 14, creatinine of 1.07, glucose of 357, proBNP within normal limits of 218, troponin and cardiac enzymes negative 1. Patient is afebrile, slightly tachycardic with a rate of 101-108 BPM, she is on room air with O2 sat at 94%. She was given a dose of Rocephin, was started on vancomycin, IV Solu- Medrol, DuoNeb nebulized treatments, her wound on the right leg was cultured, ID service was consulted. She was admitted to medical surgical floor for further management. Review of Systems All systems: negative Constitutional: Denies chills, Denies fever Eyes: denies blurred vision, denies pain Ears, nose, mouth and throat: Denies headache, Denies sore throat Cardiovascular: Denies chest pain, Denies shortness of breath Respiratory: Denies cough Gastrointestinal: Denies abdominal pain, Denies diarrhea, Denies nausea, Denies vomiting Genitourinary: Denies dysuria, Denies hematuria Musculoskeletal: Denies myalgias Integumentary: Denies pruritus, Denies rash Neurological: Denies numbness, Denies weakness Psychiatric: Denies anxiety, Denies depression Endocrine: Denies fatigue, Denies weight change Past Medical History Past Medical History: Asthma, Chest Pain / Angina, COPD, CVA/TIA, Diabetes Mellitus, GERD/Reflux, Hyperlipidemia, Hypertension, Osteoarthritis (OA), Pneumonia, Vascular Disorder Additional Past Medical History / Comment(s): NIDDM type II, neuropathy bilateral feet, chronic back pain, spinal stenosis, PAD, bilateral varicose veins, bronchitis, emphysema, irritable bowel syndrome, polyps, urinary incontinence, UTI, arthritis in legs bilaterally, tinnitus bilaterally, cataracts bilaterally.. History of Any Multi-Drug Resistant Organisms: None Reported Past Surgical History: Appendectomy, Cholecystectomy, Hysterectomy, Orthopedic Surgery Additional Past Surgical History / Comment(s): EGD/colonoscopy, hemorrhoidectomy , bilateral feet bunionectomies and corns removed. Past Anesthesia/Blood Transfusion Reactions: No Reported Reaction Past Psychological History: Anxiety Additional Psychological History / Comment(s): Pt resides alone. She has no assistive device but would like to have a cane and/or walker. She does not drive, family takes her to [employer]. Smoking Status: Former smoker Past Alcohol Use History: None Reported Additional Past Alcohol Use History / Comment(s): Pt started smoking in 1965 and quit in 2016. Past Drug Use History: None Reported Additional Drug Use History / Comment(s): Patient was a smoker of one pack per day. She denies any alcohol use or drug use. She is and lives at home with her . She does have a nebulizer machine at home. She uses home O2 at nighttime. - Past Family History Father History Unknown: Yes Family Medical History: Unable to Obtain Additional Family Medical History / Comment(s): at 32 from drowning Mother History Unknown: Yes Family Medical History: Myocardial Infarction ([place]) Additional Family Medical History / Comment(s): Mother of a [place] at the age of 68yrs. Brother(s) History Unknown: Yes Family Medical History: Unable to Obtain Additional Family Medical History / Comment(s): Patient has 1 brother that has multiple medical problems. Sister(s) History Unknown: Yes Family Medical History: Hypertension, Osteoarthritis ([place]) Daughter(s) History Unknown: Yes Additional Family Medical History / Comment(s): back issues Medications and Allergies Home Medications Medication Instructions Recorded Confirmed Type Ipratropium/Albuterol Sulfate 3 ml INHALATION RT-QID PRN 06/12/13 02/28/17 History [Duoneb 0.5 mg-3 mg/3 ml Soln] Albuterol Inhaler [Ventolin Hfa 1 - 2 puff INHALATION RT-Q6H PRN 05/19/14 History Inhaler] Metoprolol Tartrate [Lopressor] 25 mg PO DAILY 05/19/14 02/28/17 History Insulin Aspart Protam & Aspart 48 unit SQ BID 06/07/15 02/28/17 History [NovoLOG MIX 70-30 Flexpen] Metoprolol Tartrate [Lopressor] 50 mg PO HS 08/04/16 02/28/17 History LORazepam [Ativan] 2 mg PO TID PRN #90 tab 08/07/16 02/28/17 Rx Allergies Allergy/AdvReac Type Severity Reaction Status Date / Time iodine Allergy Severe Unknown Verified 02/28/17 21:47 blue dye Allergy Swelling Verified 02/28/17 21:47 bumetanide [From Bumex] Allergy Swelling Verified 02/28/17 21:47 diphenhydramine Allergy Unknown Verified 02/28/17 21:47 [From Benadryl] glipizide [From Glucotrol] Allergy Swelling Verified 02/28/17 21:47 metformin Allergy Swelling Verified 02/28/17 21:47 naproxen sodium [From Aleve] Allergy Swelling Verified 02/28/17 21:47 Penicillins Allergy Swelling Verified 02/28/17 21:47 codeine AdvReac Nausea & Verified 02/28/17 21:47 Vomiting furosemide [From Lasix] AdvReac Abdominal Verified 02/28/17 21:47 Pain levofloxacin [From Levaquin] AdvReac Abdominal Verified 02/28/17 21:47 Pain morphine AdvReac Nausea & Verified 02/28/17 21:47 Vomiting nateglinide [From Starlix] AdvReac Unknown Verified 02/28/17 21:47 nitrofurantoin AdvReac Nausea & Verified 02/28/17 21:47 [From Macrobid] Vomiting & Diarrhea nitrofurantoin AdvReac Nausea & Verified 02/28/17 21:47 macrocrystalline Vomiting & [From Macrobid] Diarrhea Sulfa (Sulfonamide AdvReac Abdominal Verified 02/28/17 21:47 Antibiotics) Pain Physical Exam Vitals: Vital Signs Temp Pulse Pulse Resp BP BP Pulse Ox 03/01/17 15:00 97.6 F 101 H 18 173/82 94 L 03/01/17 11:32 108 H 03/01/17 11:23 108 H 03/01/17 09:55 108 H 24 03/01/17 07:24 108 H 03/01/17 07:14 108 H 03/01/17 07:00 97 F L 121 H 24 162/80 94 L 03/01/17 05:34 100 03/01/17 05:26 112 H 03/01/17 04:26 109 H 164/70 03/01/17 02:53 101 H 18 03/01/17 02:39 98.8 F 101 H 18 184/81 94 L 03/01/17 01:44 97.7 F 101 H 20 186/88 100 02/28/17 23:47 105 H 20 170/77 97 02/28/17 22:39 99 02/28/17 22:24 97 02/28/17 21:33 98.6 F 110 H 22 185/79 95 Intake and Output 03/01/17 03/01/17 03/01/17 06:59 14:59 22:59 Intake Total 250 51.241 5.05 Balance 250 51.241 5.05 Intake: Intake, IV Titration 250 51.241 5.05 Amount Insulin Regular 100 unit 51.241 5.05 In Sodium Chloride 0.9% 100 ml @ Titrate IV .Q0M [facility] Rx#:[id number] Vancomycin 1,500 mg In 250 Sodium Chloride 0.9% 250 ml @ 125 mls/hr IVPB Q24H [facility] Rx#:[id number] Other: Voiding Method Toilet Toilet # Voids 2 2 Weight 81.81 kg GENERAL EXAM: Alert, active, comfortable in no apparent distress. HEAD: Normocephalic/atraumatic. EYES: Normal reaction of pupils, equal size. Conjunctiva pink, sclera white. NOSE: Clear with pink turbinates. THROAT: No erythema or exudates. NECK: No masses, no JVD, no thyroid enlargement, no adenopathy. CHEST: No chest wall deformity. Symmetrical expansion. LUNGS: Equal air entry with no crackles, wheeze, rhonchi or dullness. Diminished breath sounds bilaterally CVS: Regular rate and rhythm, normal S1 and S2, no gallops, no murmurs, no rubs ABDOMEN: Soft, nontender. No hepatosplenomegaly, normal bowel sounds, no guarding or rigidity. EXTREMITIES: No clubbing, no cyanosis, 2+ pulses and upper and lower extremities. Patient has bilateral lower extremity edema, right leg wound, which is covered with a dressing, and the leg is Jeremy wrapped MUSCULOSKELETAL: Muscle strength and tone normal. SPINE: No scoliosis or deformity SKIN: No rashes CENTRAL NERVOUS SYSTEM: Alert and oriented -3. No focal deficits, tone is normal in all 4 extremities. PSYCHIATRIC: Alert and oriented -3. Appropriate affect. Intact judgment and insight. Results - Laboratory Findings CBC and BMP: 02/28/17 22:03 02/28/17 22:03 PT/INR, D-dimer PT 9.6 sec (9.0-12.0) 02/28/17 22:03 INR 1.0 (<1.2) 02/28/17 22:03 Abnormal lab findings: Abnormal Labs 02/28/17 02/28/17 03/01/17 22:03 22:03 01:18 RDW 16.2 H Creatinine 1.07 H Glucose 357 H POC Glucose (mg/dL) 285 H 03/01/17 03/01/17 03/01/17 07:11 11:35 13:32 RDW Creatinine Glucose POC Glucose (mg/dL) 342 H 415 H 384 H 03/01/17 03/01/17 03/01/17 14:02 14:42 15:06 RDW Creatinine Glucose POC Glucose (mg/dL) 446 H 352 H 345 H - Diagnostic Findings Chest x-ray: report reviewed Additional studies: Right tibia/fibula x-ray, venous Doppler of the right leg reviewed Assessment and Plan Plan: Assessment: #1. Acute exacerbation of COPD, with bedtime oxygen. Used to see Dr. Reyna in the office, has not seen him in a while. #2. Right lower leg draining wound after a mechanical fall a week ago, with yellow-green drainage. X-ray of right tibia/fibula on 02/28/2017 shows subcutaneous edema but no fracture. Wound cultures were sent, patient was started on vancomycin #3. Bilateral lower leg cellulitis #4. History of coronary artery disease #5. Diabetes mellitus, with Solu-Medrol induced hyperglycemia #6. Hypertension, hyperlipidemia, #7. Chronic back pain, spinal stenosis #8. History of CVA/TIA #9. Irritable bowel syndrome #10. Cataracts #11. Nicotine dependence, currently in remission, quit a year ago, carries a 50 -pack-year smoking history Plan: We will reduce the Solu-Medrol down to 40 mg every 8 hours, patient is having significant Solu-Medrol induced hyperglycemia. Currently on insulin drip at 30 units per hour. Continue DuoNeb nebulized treatments, continue vancomycin. ID service has been consulted for the management of the right leg wound. I performed a history & physical examination of the patient and discussed their management with my nurse practitioner, Shawna Stallworth. I reviewed the nurse practitioner's note and agree with the documented findings and plan of care. Lung sounds are diminished. The findings and the impression was discussed with the patient. I attest to the documentation by the nurse practitioner.
[2017-03-01 16:28] LABS: Glucose,Whole Blood 282 mg/dL (75-99)
[2017-03-01 16:36] LABS: Glucose,Whole Blood 270 mg/dL (75-99)
[2017-03-01] MEDS: methylPREDNISolone SOD SUCCI 40 MG/ML 1 ML VIAL IV SCH ×2 (17:09→23:25)
[2017-03-01 17:16] LABS: Glucose,Whole Blood 249 mg/dL (75-99)
[2017-03-01 19:30] LABS: Glucose,Whole Blood 320 mg/dL (75-99)
[2017-03-01] MEDS: METOPROLOL TARTRATE 50 MG TAB PO SCH (20:37)
[2017-03-01] MEDS ORDERED: METOPROLOL TARTRATE 25 MG TAB PO SCH (21:00)
[2017-03-01 21:42] LABS: Glucose,Whole Blood 310 mg/dL (75-99)
[2017-03-01 23:43] LABS: Glucose,Whole Blood 290 mg/dL (75-99)
[2017-03-02] MEDS: IPRATROPIUM-ALBUTEROL 3 ML NEB INHALATION SCH ×7 (00:10→22:54)
[2017-03-02 01:43] LABS: Glucose,Whole Blood 218 mg/dL (75-99)
[2017-03-02 02:56] LABS: Glucose,Whole Blood 223 mg/dL (75-99)
[2017-03-02] MEDS: VANCOMYCIN 1,500 MG in SODIUM CHLORIDE 0.9% 250 ML IVPB SCH (05:13)
[2017-03-02 06:07] LABS: Glucose,Whole Blood 181 mg/dL (75-99)
[2017-03-02] MEDS: IBUPROFEN 600 MG TAB PO PRN ×2 (06:41→16:47)
[2017-03-02] MEDS: LORazepam 1 MG TAB PO PRN ×3 (06:41→23:35)
--- NOTE | 2017-03-02 07:00 | CONS ---
CONSULTATION DATE OF SERVICE: 03/01/2017 REASON FOR CONSULTATION: Right leg wound infection and cellulitis. HISTORY OF PRESENT ILLNESS: The patient is a 81-year-old female who apparently did have a fall at home where the patient slipped and tripped over her grandson hockey equipment hitting right lower leg at the end of the table. The patient did have an area of ulceration that initially became more of a blister subsequently opened up with drainage of some greenish material with surrounding swelling and redness with worsening swelling and redness and pain described to be more of a throb in nature 3 to 4 out of 10, and no radiation. Denies any high-grade fever, rigors or chills. With worsening symptoms, the patient presented to the ER. She did have lower extremity Doppler. Those were negative for DVT. The patient did have x-rays of the right tibia and fibula, which did show some subcutaneous edema, but no fracture. The patient did have local wound cultures obtained which are currently pending. The patient has been empirically started on vancomycin and ID was consulted for further recommendation regarding antibiotic therapy. REVIEW OF SYSTEMS: CONSTITUTIONAL: Positive for weakness. Denies any high-grade fever. EYES: No complaint. ENT: No complaint. RESPIRATORY: Some shortness of breath. No cough. CARDIOVASCULAR: No complaint. GENITOURINARY: No complaint. GASTROINTESTINAL: No complaint. MUSCULOSKELETAL: As per HPI. INTEGUMENTARY: As per HPI. PSYCHOLOGICAL: No complaint. ENDOCRINE: No complaint. NEUROLOGICAL: No complaint. PAST MEDICAL HISTORY: Significant for COPD, asthma, angina, CVA, TIA, and diabetes mellitus, gastroesophageal reflux disease, hypertension, hyperlipidemia osteoarthritis, pneumonia. PAST SURGICAL HISTORY: Appendectomy, cholecystectomy, hysterectomy, hemorrhoidectomy, bilateral feet bunionectomies and corns removed. SOCIAL HISTORY: Remote history of smoking, quit back in 2016. No drinking or drug use. FAMILY HISTORY: Father at age of 30 from drowning. Mother history of CT, at age of 68. ALLERGIES: Allergies to IODINE, GLIPIZIDE, METFORMIN, NAPROXEN, and PENICILLIN. The patient's penicillin was more of a rash, no anaphylaxis. MEDICATION: Medications include the patient is currently on vancomycin pharmacy to dose. She is on Ultram, Narcan, Lopressor, Solu-Medrol, Ativan, NovoLog sliding scale. She is on Pepcid, Lovenox, Santyl, Tylenol. PHYSICAL EXAMINATION: On examination, blood pressure is 188/86 with a pulse of 100, temperature 97.8. General description is an elderly female, up in the bed, in no distress. No tachypnea or accessory muscle of respiration use. HEENT examination shows no pallor or scleral icterus. Oral mucous membrane is dry. NECK: Trachea central. No thyromegaly. LUNGS: Unlabored breathing, clear to auscultation. No wheeze or crackles. HEART: S1, S2. Regular rate and rhythm. No murmur ABDOMEN: Soft. No tenderness. No guarding or rigidity. No organomegaly. EXTREMITIES: No edema of feet. Examination the right leg did have an ulceration on the lawson area with some surrounding redness, slightly warm to touch and tender. NEUROLOGICAL: Patient is awake, alert, oriented x3. Mood and affect normal. LABS: Hemoglobin is 12.5, white count 8.4. BUN is 14, creatinine 1.07. Electrolytes have been normal. Liver enzymes are normal. Cultures obtained currently pending. X -ray revealed no fracture. DIAGNOSTIC IMPRESSION AND PLAN: 1. Patient with right leg traumatic wound with secondary cellulitis likely from a gram- positive skin isaac less likely gram-negative infection with no evidence of any bony changes. Ultrasound was negative for any deep venous thrombosis. 2. Patient does have a history of PENICILLIN allergy that will limit number of antibiotics that could be safely used. PLAN: 1. Local wound care with Santyl followed by moist dressing. Sandeep the area of the redness. 2. It has been advised to apply an Jeremy wrap from just above to below the knee to keep some of the swelling down. 3. Vancomycin pharmacy to dose, target trough of 15. However will need to monitor kidney function very closely with vancomycin 4. Depending upon the clinical response as well as culture, will adjust her medications further if needed. Thank you for this consultation. Will follow this patient along with. MMODL / IJN: [id number] / EZIO
[2017-03-02 07:01] LABS: Glucose,Whole Blood 300 mg/dL (75-99)
[2017-03-02] MEDS: INSULIN ASPART 100 UNIT/ML 1 ML 10 ML VIAL SQ SCH ×3 (08:30→18:14)
[2017-03-02] MEDS: ENOXAPARIN 40 MG/0.4 ML SYRINGE SQ SCH (08:32)
[2017-03-02] MEDS: METOPROLOL TARTRATE 25 MG TAB PO SCH (08:34)
[2017-03-02] MEDS: FAMOTIDINE 20 MG TAB PO SCH (08:34)
[2017-03-02 09:00] LABS: Glucose,Whole Blood 359 mg/dL (75-99)
[2017-03-02] MEDS: COLLAGENASE 250 UNIT/GM OINTMENT 30 GM TUBE TOPICAL SCH (09:22)
[2017-03-02] MEDS: methylPREDNISolone SOD SUCCI 40 MG/ML 1 ML VIAL IV SCH (09:34)
[2017-03-02 10:59] LABS: Glucose,Whole Blood 266 mg/dL (75-99)
[2017-03-02] MEDS: INSULIN REGULAR 100 UNIT in SODIUM CHLORIDE 0.9% 100 ML IV SCH (11:03)
--- NOTE | 2017-03-02 12:16 | P.PN ---
Subjective Progress Note Date: 03/02/17 Principal diagnosis: Mild COPD exacerbation, right lower leg draining wound post mechanical fall Kelly is a 81-year-old white female patient of Dr. Thomason, presented to the emergency department on 02/28/2017 at 2100 after sustaining a mechanical fall one week ago and developing increased swelling in her right leg along with redness, induration, this subsequently ruptured and drained yellow-green pussy material. She was also complaining of increasing shortness of breath, productive cough, wheezing. Does have underlying history of COPD, she is an ex- smoker, used to see Dr. Reyna in our office, although has not seen him in the long time. Denies any fever, chills, chest pain, hemoptysis. She is on DuoNeb nebulized treatments 4 times a day as needed, and has a Ventolin HFA inhaler. Chest x-ray taken in the ED on 02/28/2017 shows new minimal subsegmental atelectasis in the right middle lobe, compared to old exam from . No evidence of heart failure. X-ray of the right tibia and fibula showed subcutaneous edema, but no evidence of fracture. Venous ultrasound of the right leg was negative for DVT. Lab work showed WBC within normal limits of 8.4, hemoglobin of 12.5, no evidence of coagulopathy, no electrolyte abnormality, BUN 14, creatinine of 1.07, glucose of 357, proBNP within normal limits of 218, troponin and cardiac enzymes negative 1. Patient is afebrile, slightly tachycardic with a rate of 101-108 BPM, she is on room air with O2 sat at 94%. She was given a dose of Rocephin, was started on vancomycin, IV Solu- Medrol, DuoNeb nebulized treatments, her wound on the right leg was cultured, ID service was consulted. She was admitted to medical surgical floor for further management. On 03/02/2017 patient seen in follow-up on medical surgical floor. From pulmonary standpoint she states she is feeling better, although does still have exertional dyspnea. Currently on room air, with O2 sat at 95%. Remains afebrile, hemodynamically stable. Slightly tachycardic with a rate ranging between 90-104 BPM. Lung sounds are clear, diminished, no rhonchi, no wheezes were noted. Right leg wound culture is pending. Patient is covered with IV vancomycin. Still has significant hyperglycemia related to IV Solu-Medrol. Due to evidence of no wheezing at all, we will stop the IV Solu-Medrol, no need for prednisone taper. At this point the main issue seems to be the right lower leg wound, which is also causing her some pain. This is being followed by the ID service. Objective - Vital Signs Vital signs: Vital Signs Temp 97.5 F L 03/02/17 07:00 Pulse 102 H 03/02/17 11:32 Resp 18 03/02/17 09:43 BP 142/68 03/02/17 07:00 Pulse Ox 95 03/02/17 07:00 Intake & Output 03/01/17 03/02/17 03/02/17 18:59 06:59 18:59 Intake Total 527.287 5284.365 290.551 Balance 279.454 5923.365 290.551 Intake: IV 250 Vancomycin 1,500 mg In 250 Sodium Chloride 0.9% 250 ml @ 125 mls/hr IVPB Q24H [facility] Rx#:[id number] Intake, IV Titration 101.000 60.365 40.551 Amount Insulin Regular 100 unit 101.000 60.365 40.551 In Sodium Chloride 0.9% 100 ml @ Titrate IV .Q0M [facility] Rx#:[id number] Oral 1180 Other: Voiding Method Toilet Toilet Toilet # Voids 2 3 2 - Exam GENERAL EXAM: Alert, active, comfortable in no apparent distress. HEAD: Normocephalic/atraumatic. EYES: Normal reaction of pupils, equal size. Conjunctiva pink, sclera white. NOSE: Clear with pink turbinates. THROAT: No erythema or exudates. NECK: No masses, no JVD, no thyroid enlargement, no adenopathy. CHEST: No chest wall deformity. Symmetrical expansion. LUNGS: Equal air entry with no crackles, wheeze, rhonchi or dullness. Diminished breath sounds bilaterally CVS: Regular rate and rhythm, normal S1 and S2, no gallops, no murmurs, no rubs ABDOMEN: Soft, nontender. No hepatosplenomegaly, normal bowel sounds, no guarding or rigidity. EXTREMITIES: No clubbing, no cyanosis, 2+ pulses and upper and lower extremities. Patient has bilateral lower extremity edema, right leg wound, which is covered with a dressing, and the leg is Jeremy wrapped MUSCULOSKELETAL: Muscle strength and tone normal. SPINE: No scoliosis or deformity SKIN: No rashes CENTRAL NERVOUS SYSTEM: Alert and oriented -3. No focal deficits, tone is normal in all 4 extremities. PSYCHIATRIC: Alert and oriented -3. Appropriate affect. Intact judgment and insight. - Labs CBC & Chem 7: 02/28/17 22:03 02/28/17 22:03 Labs: Abnormal Lab Results - Last 24 Hours (Table) 03/01/17 03/01/17 03/01/17 Range/Units 13:32 14:02 14:42 POC Glucose (mg/dL) 384 H 446 H 352 H (75-99) mg/dL 03/01/17 03/01/17 03/01/17 Range/Units 15:06 15:30 16:00 POC Glucose (mg/dL) 345 H 312 H 282 H (75-99) mg/dL 03/01/17 03/01/17 03/01/17 Range/Units 16:34 17:15 19:28 POC Glucose (mg/dL) 270 H 249 H 320 H (75-99) mg/dL 03/01/17 03/01/17 03/02/17 Range/Units 21:21 23:21 01:29 POC Glucose (mg/dL) 310 H 290 H 218 H (75-99) mg/dL 03/02/17 03/02/17 03/02/17 Range/Units 02:53 05:06 06:58 POC Glucose (mg/dL) 223 H 181 H 300 H (75-99) mg/dL 03/02/17 03/02/17 Range/Units 08:59 10:56 POC Glucose (mg/dL) 359 H 266 H (75-99) mg/dL Microbiology - Last 24 Hours (Table) 03/01/17 11:30 Gram Stain - Preliminary Leg - Right Wound Culture - Preliminary Assessment and Plan Plan: Assessment: #1. Acute exacerbation of COPD, with bedtime oxygen. Improving #2. Right lower leg draining wound after a mechanical fall a week ago, with yellow-green drainage. X-ray of right tibia/fibula on 02/28/2017 shows subcutaneous edema but no fracture. Wound cultures were sent, patient was started on vancomycin #3. Bilateral lower leg cellulitis #4. History of coronary artery disease #5. Diabetes mellitus, with Solu-Medrol induced hyperglycemia #6. Hypertension, hyperlipidemia, #7. Chronic back pain, spinal stenosis #8. History of CVA/TIA #9. Irritable bowel syndrome #10. Cataracts #11. Nicotine dependence, currently in remission, quit a year ago, carries a 50 -pack-year smoking history Plan: Patient denies any worsening dyspnea, no evidence of any wheezing on physical exam, we will stop the Solu-Medrol completely, patient developed significant steroid-induced hyperglycemia, continues on insulin drip. Continue with nebulized treatments, remains stable from pulmonary standpoint. She could be considered for discharge from our standpoint, however the active issue at hand is the right lower leg wound, ID service is following. I performed a history & physical examination of the patient and discussed their management with my nurse practitioner, Shawna Stallworth. I reviewed the nurse practitioner's note and agree with the documented findings and plan of care. Lung sounds are diminished. The findings and the impression was discussed with the patient. I attest to the documentation by the nurse practitioner. Time with Patient: Less than 30
--- NOTE | 2017-03-02 12:25 | P.PN ---
Subjective Progress Note Date: 03/02/17 This is a 81-year-old female patient of Dr. Thomason with past medical history of CAD, COPD, CVA and TIA, diabetes, hypertension, hyperlipidemia chronic back pain and spinal stenosis. 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 She then had lower leg edema in the area on her pretibial area bubbled up and then started draining green yesterday. She also has increased shortness of breath from her baseline. Her abdomen is distended but she states she is having bowel movements and has on and off diarrhea. She is on home O2 at bedtime only and her pulmonary physician is Dr. Axel elizondo and she has not slept since she came in last evening and is complaining of a headache and throbbing in her feet. She did try Motrin for the headache which was not relieved. Added and Tylenol and may try tramadol for headache. Blood sugars are elevated and an insulin drip will be started. Patient presented to [facility] emergency center and was diagnosed with bilateral lower extremity cellulitis worse on the right and COPD exacerbation. She was tachycardic but afebrile with normal white count. Chest x-ray showed minimal subsegmental atelectasis in the right middle lobe compared to old exam ultrasound of the lower extremity was negative for DVT on the right. Tib-fib x-ray shows subcutaneous edema and no fractures. Patient was started on DuoNeb treatments and vancomycin and [facility] and a consult was placed with pulmonary medicine. 03/02: Patient continues to have some shortness of breath. She has not had a bowel movement. In by Dr. salinas with recommendations to continue vancomycin and Santyl for local wound care. Patient is also been seen by Dr. Avila and Solu- Medrol has been decreased to 40 mg every 8 and now stopped by pulmonary medicine with no need for prednisone taper. Blood sugars are still running in the 200s and 300s for which insulin drip will be continued and expect significant improvement after steroids have been stopped. Patient has decided she'll like to go to [facility] and we will plan on Sunday discharge. Objective - Vital Signs Vital signs: Vital Signs Temp 97.5 F L 03/02/17 07:00 Pulse 105 H 03/02/17 09:43 Resp 18 03/02/17 09:43 BP 142/68 03/02/17 07:00 Pulse Ox 95 03/02/17 07:00 Intake & Output 03/01/17 03/02/17 03/02/17 18:59 06:59 18:59 Intake Total 463.508 1030.365 23.145 Balance 714.851 0360.365 23.145 Intake: Intake, IV Titration 101.000 60.365 23.145 Amount Insulin Regular 100 unit 101.000 60.365 23.145 In Sodium Chloride 0.9% 100 ml @ Titrate IV .Q0M [facility] Rx#:[id number] Oral 1180 Other: Voiding Method Toilet Toilet Toilet # Voids 2 3 - Exam General appearance: no average body habitus, cooperative, disheveled, no mild distress, no morbidly obese, no no acute distress, no obese, no severe distress , no thin - EENT Eyes: no abnormal pupil, no anicteric sclerae, no disc margins sharp, no edentulous, no EOMI, no PERRLA, no fundus normal, no photophobia, no dentition normal, no poor dentition, no ptosis, no scleral icterus, normal appearance ENT: hard of hearing, no hearing grossly normal, no NA/AT, normal oropharynx, no other, no pharyngeal erythema, no thrush, no tonsillar exudates, no tonsillar swelling Ears: bilateral: normal - Neck Quite bit pain and discomfort with significant restriction to motion. Neck: no lymphadenopathy, no normal ROM, no other, rigidity, no stridor, no thyromegaly Carotids: bilateral: upstroke normal Thyroid: bilateral: normal size - Respiratory Respiratory: bilateral: diminished, dullness, rales, rhonchi, wheezing - Cardiovascular Rhythm: regular Heart sounds: normal: S1, S2 Abnormal Heart Sounds: systolic murmur, S3 Gallop - Gastrointestinal General gastrointestinal: no absent bowel sounds, decreased bowel sounds, no distended, no hepatomegaly, no hyperactive bowel sounds, no normal bowel sounds , no organomegaly, no rigid, no scaphoid, soft, splenomegaly, no tenderness, no umbilical hernia, no ventral hernia - Integumentary Integumentary: no calor, no cellulitis, no cyanotic, no decreased turgor, no flushed, no jaundiced, normal, no normal turgor, pale, rash, no ulcer - Neurologic Neurologic: CNII-XII intact - Musculoskeletal Musculoskeletal: no gait normal, generalized weakness, no strength equal bilaterally, no right sided weakness, no left sided weakness - Psychiatric - Labs CBC & Chem 7: 02/28/17 22:03 02/28/17 22:03 Labs: Abnormal Lab Results - Last 24 Hours (Table) 03/01/17 03/01/17 03/01/17 Range/Units 11:35 13:32 14:02 POC Glucose (mg/dL) 415 H 384 H 446 H (75-99) mg/dL 03/01/17 03/01/17 03/01/17 Range/Units 14:42 15:06 15:30 POC Glucose (mg/dL) 352 H 345 H 312 H (75-99) mg/dL 03/01/17 03/01/17 03/01/17 Range/Units 16:00 16:34 17:15 POC Glucose (mg/dL) 282 H 270 H 249 H (75-99) mg/dL 03/01/17 03/01/17 03/01/17 Range/Units 19:28 21:21 23:21 POC Glucose (mg/dL) 320 H 310 H 290 H (75-99) mg/dL 03/02/17 03/02/17 03/02/17 Range/Units 01:29 02:53 05:06 POC Glucose (mg/dL) 218 H 223 H 181 H (75-99) mg/dL 03/02/17 03/02/17 Range/Units 06:58 08:59 POC Glucose (mg/dL) 300 H 359 H (75-99) mg/dL Microbiology - Last 24 Hours (Table) 03/01/17 11:30 Gram Stain - Preliminary Leg - Right Wound Culture - Preliminary Assessment and Plan Plan: 1. Acute exacerbation of COPD. Consult with Dr. Avila. Continue DuoNeb treatments, Solu-Medrol discontinued. 2. Cellulitis of the bilateral lower extremities most severe on the right lower extremity with pretibial wound. Consult with Dr. Singer. Patient is currently on vancomycin and Santyl is in place with local wound care. 3. Sinus headache unrelieved with ibuprofen. Tylenol will be tried and then tramadol. Patient has ALLERGY to codeine and morphine. Nasal saline rinse added. 4. Hypertension, hypertensive cardiovascular disease. Continue Lopressor 50 mg at bedtime. 5. Diabetes mellitus type 2 uncontrolled with hyperglycemia secondary to steroids. Patient on insulin drip. 6. History of tobacco use and dependence. 7. Osteoarthritis with degenerative disc disease and chronic back pain, stable. 8. Valvular heart disease, stable. 9. GI prophylaxis. Pepcid 20 mg daily. 10. DVT prophylaxis. Lovenox. Discharge plan: [facility] on Sunday under Dr. Doe. Impression and plan of care have been directed as dictated by the signing physician. Romy Zuniga nurse practitioner acting as scribe for signing physician.
[2017-03-02 13:02] LABS: Glucose,Whole Blood 161 mg/dL (75-99)
[2017-03-02 15:17] LABS: Glucose,Whole Blood 181 mg/dL (75-99)
--- NOTE | 2017-03-02 17:18 | PN ---
PROGRESS NOTE DATE OF SERVICE: 03/02/2017 REASON FOR FOLLOWUP: Right leg wound and cellulitis. INTERVAL HISTORY: The patient is afebrile. She is breathing slightly comfortably. No chest pain. Occasional cough. No abdominal pain. Denies any worsening pain in the right leg area. Redness slightly decreased. PHYSICAL EXAMINATION: Blood pressure is 142/68 with a pulse of 99, temperature of 97.5. She is 95% on room air. General description is an elderly female up in the bed in no distress. RESPIRATORY SYSTEM: Unlabored breathing. Clear to auscultation anteriorly. HEART: S1, S2. Regular rate and rhythm. ABDOMEN: Soft. No tenderness. Right leg swelling and redness slightly decreased. No drainage. LABS: No new CBC was done today. Wound culture currently pending. DIAGNOSTIC IMPRESSION AND PLAN: Patient with a right leg wound with secondary cellulitis, traumatic. The patient is currently on vancomycin. That will continue while waiting for the culture to finalize to determine her discharge antibiotics. Local wound care with Santyl. Continue with supportive care. MMODL / IJN: [id number] /
[2017-03-02 17:28] LABS: Glucose,Whole Blood 101 mg/dL (75-99)
[2017-03-02 17:59] LABS: Glucose,Whole Blood 71 mg/dL (75-99)
[2017-03-02 19:46] LABS: Glucose,Whole Blood 162 mg/dL (75-99)
[2017-03-02] MEDS: METOPROLOL TARTRATE 50 MG TAB PO SCH (21:33)
[2017-03-02 22:25] LABS: Glucose,Whole Blood 174 mg/dL (75-99)
[2017-03-03 00:25] LABS: Glucose,Whole Blood 60 mg/dL (75-99)
[2017-03-03 01:02] LABS: Glucose,Whole Blood 94 mg/dL (75-99)
[2017-03-03 01:53] LABS: Glucose,Whole Blood 116 mg/dL (75-99)
[2017-03-03] MEDS: IPRATROPIUM-ALBUTEROL 3 ML NEB INHALATION SCH ×5 (03:16→20:43)
[2017-03-03 03:17] LABS: Glucose,Whole Blood 119 mg/dL (75-99)
[2017-03-03 05:18] LABS: Glucose,Whole Blood 141 mg/dL (75-99)
[2017-03-03] MEDS: VANCOMYCIN 1,500 MG in SODIUM CHLORIDE 0.9% 250 ML IVPB SCH (05:55)
[2017-03-03] MEDS: INSULIN ASPART 100 UNIT/ML 1 ML 10 ML VIAL SQ SCH ×4 (07:23→20:52)
[2017-03-03 07:38] LABS: HCT 39.4 % (34.0-46.0); MCHC 33.2 g/dL (31.0-37.0); MCV 84.5 fL (80.0-100.0); Mean Platelet Volume 8.1; Platelet Count 306 k/uL (150-450); Poikilocytosis Slight; RBC 4.66 m/uL (3.80-5.40); RDW 15.7 % (11.5-15.5)
[2017-03-03] MEDS: ENOXAPARIN 40 MG/0.4 ML SYRINGE SQ SCH (07:41)
[2017-03-03] MEDS: METOPROLOL TARTRATE 25 MG TAB PO SCH (07:41)
[2017-03-03] MEDS: FAMOTIDINE 20 MG TAB PO SCH ×2 (07:41→23:39)
[2017-03-03 07:58] LABS: Glucose,Whole Blood 130 mg/dL (75-99)
[2017-03-03 08:02] LABS: Anion Gap 11 mmol/L; Blood Urea Nitrogen 18 mg/dL (7-17); Calcium 9.4 mg/dL (8.4-10.2); Carbon Dioxide 26 mmol/L (22-30); Chloride 105 mmol/L (98-107); Glucose 133 mg/dL (74-99); Potassium 3.8 mmol/L (3.5-5.1); Sodium 142 mmol/L (137-145)
[2017-03-03] MEDS ORDERED: predniSONE 20 MG TAB PO SCH (09:00)
[2017-03-03] MEDS: LORazepam 1 MG TAB PO PRN ×2 (10:30→22:23)
[2017-03-03] MEDS: COLLAGENASE 250 UNIT/GM OINTMENT 30 GM TUBE TOPICAL SCH (11:37)
[2017-03-03 11:45] LABS: Glucose,Whole Blood 237 mg/dL (75-99)
--- NOTE | 2017-03-03 13:06 | XR ---
EXAMINATION TYPE: XR chest 1V portable DATE OF EXAM: 03/03/2017 HISTORY: sob. REFERENCE: Previous study dated 02/28/2017. FINDINGS: There is atelectasis or scarring in the right midlung. The heart is enlarged. There is some blunting of the left CP angle. I could not exclude a small left effusion. IMPRESSION: 1. CARDIOMEGALY. 2. CONTINUING SUBSEGMENTAL ATELECTASIS, RIGHT MIDLUNG. 3. I COULD NOT EXCLUDE A SMALL, LEFT EFFUSION.
--- NOTE | 2017-03-03 13:37 | P.PN ---
Subjective Progress Note Date: 03/03/17 Principal diagnosis: COPD exacerbation, lower extremity cellulitis Progress note dated 03/03/2017 This is a 81-year-old female who was admitted a couple days ago with a COPD exacerbation but also with the right lower extremity cellulitis. The patient had a x-ray of the right upper semi-which was negative for fracture and she also had a Doppler right of the right lower summary which is negative for DVT. She was having issues with steroids we stop the steroids for her COPD. In addition to COPD and cellulitis, she has a history of coronary artery disease, diabetes, hypertension, spinal stenosis with chronic back pain, CVA, irritable bowel syndrome, cataracts, and previous history of heavy nicotine dependence. Her breathing has significantly improved. Her lochia extremities are giving her more difficulty than her breathing at this time. Again the steroids were stopped because of the side effects and the fact that her sugars were elevated. Objective - Vital Signs Vital signs: Vital Signs Temp 98.9 F 03/03/17 07:00 Pulse 108 H 03/03/17 11:12 Resp 16 03/03/17 08:00 BP 185/72 03/03/17 07:00 Pulse Ox 96 03/03/17 07:00 Intake & Output 03/02/17 03/03/17 03/03/17 18:59 06:59 18:59 Intake Total 364.905 9085.253 241.033 Balance 124.712 6581.253 241.033 Intake: IV 250 Vancomycin 1,500 mg In 250 Sodium Chloride 0.9% 250 ml @ 125 mls/hr IVPB Q24H [facility] Rx#:[id number] Intake, IV Titration 64.510 9.253 1.033 Amount Insulin Regular 100 unit 64.510 9.253 1.033 In Sodium Chloride 0.9% 100 ml @ Titrate IV .Q0M [facility] Rx#:[id number] Oral 1180 240 Other: Voiding Method Toilet Toilet Toilet # Voids 2 3 3 - Exam No acute distress, oriented 3. HEENT examination is grossly unremarkable. Mucous membranes are moist. No oral lesions. Neck supple. Full range of motion. No adenopathy thyromegaly or neck vein distention. Cardiovascular examination reveals regular rhythm rate. S1-S2 normal. No S3 or S4. No discernible murmur noted. Lungs reveal a few scattered rhonchi. A few scattered wheezes are noted. Breath sounds are diminished. Slight prolongation on forced maneuver. No crackles. Abdomen soft bowel sounds are heard. No masses or tenderness. Extremities reveal bilateral lower extremity edema. Her some cellulitis with erythema and warmth of the right lower extremity. Slight pitting. The right lower extremity is wrapped. Skin is without rash or lesion. Neurologic examination is brief but nonfocal. - Labs CBC & Chem 7: 03/03/17 07:07 03/03/17 07:07 Labs: Abnormal Lab Results - Last 24 Hours (Table) 03/02/17 03/02/17 03/02/17 Range/Units 15:15 17:03 17:58 WBC (3.8-10.6) k/uL RDW (11.5-15.5) % BUN (7-17) mg/dL Glucose (74-99) mg/dL POC Glucose (mg/dL) 181 H 101 H 71 L (75-99) mg/dL 03/02/17 03/02/17 03/03/17 Range/Units 19:43 22:24 00:23 WBC (3.8-10.6) k/uL RDW (11.5-15.5) % BUN (7-17) mg/dL Glucose (74-99) mg/dL POC Glucose (mg/dL) 162 H 174 H 60 L (75-99) mg/dL 03/03/17 03/03/17 03/03/17 Range/Units 01:51 03:05 05:16 WBC (3.8-10.6) k/uL RDW (11.5-15.5) % BUN (7-17) mg/dL Glucose (74-99) mg/dL POC Glucose (mg/dL) 116 H 119 H 141 H (75-99) mg/dL 03/03/17 03/03/17 03/03/17 Range/Units 07:07 07:07 07:19 WBC 12.0 H (3.8-10.6) k/uL RDW 15.7 H (11.5-15.5) % BUN 18 H (7-17) mg/dL Glucose 133 H (74-99) mg/dL POC Glucose (mg/dL) 130 H (75-99) mg/dL 03/03/17 Range/Units 11:43 WBC (3.8-10.6) k/uL RDW (11.5-15.5) % BUN (7-17) mg/dL Glucose (74-99) mg/dL POC Glucose (mg/dL) 237 H (75-99) mg/dL Microbiology - Last 24 Hours (Table) 03/01/17 11:30 Gram Stain - Preliminary Leg - Right Wound Culture - Preliminary Assessment and Plan Assessment: Assessment COPD exacerbation, much improved Right lower extremity cellulitis History of CAD Diabetes mellitus Hypertension Hyperlipidemia Chronic back pain secondary to spinal stenosis History of CVA area wrapped internal bowel syndrome Cataracts Previous history of heavy tobacco use Plan: Plan dated 03/03/2017 Medications labs x-rays are reviewed. The chest x-ray show some right basilar atelectasis. No distinct infiltrate. The corticosteroids were discontinued. Her medications are reviewed. Labs are reviewed. Currently receiving antibiotics for the lower extremities cellulitis. The lower summary cellulitis tends to be much more significant in the right lower extremity. Time with Patient: Less than 30
[2017-03-03] MEDS: guaiFENesin SYRUP 100MG/5ML 200 MG/10 ML CUP PO PRN (15:00)
[2017-03-03] MEDS: FUROSEMIDE 10 MG/ML 2 ML VIAL IV SCH ×2 (15:00→20:53)
[2017-03-03] MEDS ORDERED: MAG HYDROX/AL HYDROX/SIMETH 30 ML CUP PO PRN (15:54)
--- NOTE | 2017-03-03 16:03 | P.PN ---
Subjective Progress Note Date: 03/03/17 This is a 81-year-old female patient of Dr. Thomason with past medical history of CAD, COPD, CVA and TIA, diabetes, hypertension, hyperlipidemia chronic back pain and spinal stenosis. 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 She then had lower leg edema in the area on her pretibial area bubbled up and then started draining green yesterday. She also has increased shortness of breath from her baseline. Her abdomen is distended but she states she is having bowel movements and has on and off diarrhea. She is on home O2 at bedtime only and her pulmonary physician is Dr. Axel elizondo and she has not slept since she came in last evening and is complaining of a headache and throbbing in her feet. She did try Motrin for the headache which was not relieved. Added and Tylenol and may try tramadol for headache. Blood sugars are elevated and an insulin drip will be started. Patient presented to [facility] emergency center and was diagnosed with bilateral lower extremity cellulitis worse on the right and COPD exacerbation. She was tachycardic but afebrile with normal white count. Chest x-ray showed minimal subsegmental atelectasis in the right middle lobe compared to old exam ultrasound of the lower extremity was negative for DVT on the right. Tib-fib x-ray shows subcutaneous edema and no fractures. Patient was started on DuoNeb treatments and vancomycin and [facility] and a consult was placed with pulmonary medicine. 03/02: Patient continues to have some shortness of breath. She has not had a bowel movement. In by Dr. Singer with recommendations to continue vancomycin and Santyl for local wound care. Patient is also been seen by Dr. Avila and Solu-Medrol has been decreased to 40 mg every 8 and now stopped by pulmonary medicine with no need for prednisone taper. Blood sugars are still running in the 200s and 300s for which insulin drip will be continued and expect significant improvement after steroids have been stopped. Patient has decided she'll like to go to [facility] and we will plan on Sunday discharge. 03/03 Patient appears to drowsy, takes ativan 2 mg TID, dose reduced to 1 mg po TID as needed. Patient sounds congested and lower extremities were swollen. Lasix 20 mg iv BID initiated. Mucinex initiated for congestion chest x-ray suggestive of mid lung atelectasis but no consolidation seen. Patient initiated on 25 mg twice daily NPH along with sliding scale. Objective - Vital Signs Vital signs: Vital Signs Temp 98.9 F 03/03/17 07:00 Pulse 97 03/03/17 15:45 Resp 16 03/03/17 15:45 BP 158/74 03/03/17 13:30 Pulse Ox 96 03/03/17 07:00 Intake & Output 03/02/17 03/03/17 03/03/17 18:59 06:59 18:59 Intake Total 897.119 2773.253 241.033 Balance 014.337 4437.253 241.033 Intake: IV 250 Vancomycin 1,500 mg In 250 Sodium Chloride 0.9% 250 ml @ 125 mls/hr IVPB Q24H [facility] Rx#:[id number] Intake, IV Titration 64.510 9.253 1.033 Amount Insulin Regular 100 unit 64.510 9.253 1.033 In Sodium Chloride 0.9% 100 ml @ Titrate IV .Q0M [facility] Rx#:[id number] Oral 1180 240 Other: Voiding Method Toilet Toilet Toilet # Voids 2 3 3 - Exam - Exam General appearance: no average body habitus, cooperative, disheveled, no mild distress, no morbidly obese, no no acute distress, no obese, no severe distress , no thin, appears sleepy during conversation - EENT Eyes: no abnormal pupil, no anicteric sclerae, no disc margins sharp, no edentulous, no EOMI, no PERRLA, no fundus normal, no photophobia, no dentition normal, no poor dentition, no ptosis, no scleral icterus, normal appearance ENT: hard of hearing, no hearing grossly normal, no NA/AT, normal oropharynx, no other, no pharyngeal erythema, no thrush, no tonsillar exudates, no tonsillar swelling Ears: bilateral: normal - Neck Quite bit pain and discomfort with significant restriction to motion. Neck: no lymphadenopathy, no normal ROM, no other, rigidity, no stridor, no thyromegaly Carotids: bilateral: upstroke normal Thyroid: bilateral: normal size - Respiratory Respiratory: bilateral: diminished, dullness, rales, rhonchi, no wheezing - Cardiovascular Rhythm: regular Heart sounds: normal: S1, S2 Abnormal Heart Sounds: systolic murmur, S3 Gallop - Gastrointestinal General gastrointestinal: no absent bowel sounds, decreased bowel sounds, no distended, no hepatomegaly, no hyperactive bowel sounds, no normal bowel sounds , no organomegaly, no rigid, no scaphoid, soft, splenomegaly, no tenderness, no umbilical hernia, no ventral hernia - Integumentary Integumentary: no calor,cellulitis right lower extremity with significant lower extremity edema bilaterally, open wound present on the lawson in the right lower extremity, no cyanotic, no decreased turgor, no flushed, no jaundiced, normal, no normal turgor, pale, rash, no ulcer - Neurologic Neurologic: CNII-XII intact - Musculoskeletal Musculoskeletal: generalized weakness, no strength equal bilaterally, no right sided weakness, no left sided weakness - Labs CBC & Chem 7: 03/03/17 07:07 03/03/17 07:07 Labs: Abnormal Lab Results - Last 24 Hours (Table) 03/02/17 03/02/17 03/02/17 Range/Units 17:03 17:58 19:43 WBC (3.8-10.6) k/uL RDW (11.5-15.5) % BUN (7-17) mg/dL Glucose (74-99) mg/dL POC Glucose (mg/dL) 101 H 71 L 162 H (75-99) mg/dL 03/02/17 03/03/17 03/03/17 Range/Units 22:24 00:23 01:51 WBC (3.8-10.6) k/uL RDW (11.5-15.5) % BUN (7-17) mg/dL Glucose (74-99) mg/dL POC Glucose (mg/dL) 174 H 60 L 116 H (75-99) mg/dL 03/03/17 03/03/17 03/03/17 Range/Units 03:05 05:16 07:07 WBC (3.8-10.6) k/uL RDW (11.5-15.5) % BUN 18 H (7-17) mg/dL Glucose 133 H (74-99) mg/dL POC Glucose (mg/dL) 119 H 141 H (75-99) mg/dL 03/03/17 03/03/17 03/03/17 Range/Units 07:07 07:19 11:43 WBC 12.0 H (3.8-10.6) k/uL RDW 15.7 H (11.5-15.5) % BUN (7-17) mg/dL Glucose (74-99) mg/dL POC Glucose (mg/dL) 130 H 237 H (75-99) mg/dL Microbiology - Last 24 Hours (Table) 03/01/17 11:30 Gram Stain - Final Leg - Right Wound Culture - Final Assessment and Plan Plan: 1. Acute exacerbation of COPD. Consult with Dr. Avila. Continue DuoNeb treatments, Solu-Medrol discontinued. Mucinex 600 twice a day for congestion. Chest x-rays negative for consolidation 2. Cellulitis of the bilateral lower extremities most severe on the right lower extremity with pretibial wound. Consult with Dr. Singer. Patient is currently on vancomycin and Santyl is in place with local wound care. 3. Sinus headache unrelieved with ibuprofen. Tylenol will be tried and then tramadol. Patient has ALLERGY to codeine and morphine. Nasal saline rinse added. 4. Hypertension, hypertensive cardiovascular disease. Continue Lopressor 50 mg at bedtime. 5. Diabetes mellitus type 2 uncontrolled with hyperglycemia secondary to steroids. Patient initiated on 70/30 as part 25 twice a day along with sliding scale 6. History of tobacco use and dependence. 7. Osteoarthritis with degenerative disc disease and chronic back pain, stable. 8. Valvular heart disease, stable. 9. GI prophylaxis. Pepcid 20 mg twice daily 10. DVT prophylaxis. Lovenox. Discharge plan: [facility] on Sunday under Dr. Doe.
[2017-03-03 17:09] LABS: Glucose,Whole Blood 259 mg/dL (75-99)
[2017-03-03] MEDS: INSULN ASP PRT/INSULIN ASPART 100 UNIT/ML 10 ML VIAL SQ SCH (17:52)
[2017-03-03 20:21] LABS: Hemoglobin A1C 8.1 % (4.0-6.0)
[2017-03-03 20:28] LABS: Glucose,Whole Blood 333 mg/dL (75-99)
[2017-03-03] MEDS: SYMBICORT 160-4.5 MCG INHALER INHALATION SCH (20:43)
[2017-03-03] MEDS: IBUPROFEN 600 MG TAB PO PRN (20:51)
[2017-03-03] MEDS: METOPROLOL TARTRATE 50 MG TAB PO SCH (20:52)
[2017-03-03] MEDS ORDERED: INSULIN NPH/REG INSULIN 70/30 300 UNIT/3 ML VIAL SQ SCH (21:00)
[2017-03-03] MEDS ORDERED: guaiFENesin 600 MG TABLET.ER PO SCH (21:00)
--- NOTE | 2017-03-03 23:15 | PN ---
PROGRESS NOTE DATE OF SERVICE: 03/03/2017 REASON FOR FOLLOWUP: Right leg wound and cellulitis. INTERVAL HISTORY: The patient is afebrile. She is breathing comfortably. Still has some cough, but not bringing up any sputum. No chest pain. No abdominal pain. The right leg is having some swelling and redness and pain. EXAMINATION: Blood pressure is 132/81 with a pulse of 91, temperature 98.2. She is 99% on 2L nasal cannula. General description is an elderly female, up in the bed in no distress. RESPIRATORY SYSTEM: Unlabored breathing with bilateral coarse breath sounds. HEART: S1, S2. Regular rate and rhythm. ABDOMEN: Soft. No tenderness. LABS: BUN of 18, creatinine 0.72. Wound culture has been negative. DIAGNOSTIC IMPRESSION AND PLAN: Patient with right leg wound, traumatic, with secondary cellulitis. Culture has been negative for methicillin-resistant Staphylococcus aureus. Patient did have a history of PENICILLIN allergy, but no anaphylaxis and may have taken Keflex without any problem. Antibiotic will be adjusted to cefazolin 2 g q.8h. Local wound care to continue with Santyl and continue with supportive care. MMODL / IJN: [id number] /
[2017-03-04] MEDS: IPRATROPIUM-ALBUTEROL 3 ML NEB INHALATION SCH ×6 (01:07→20:20)
[2017-03-04] MEDS ORDERED: VANCOMYCIN TROUGH DUE 1 EACH MISC MISCELLANE ONE (05:00)
[2017-03-04] MEDS: SYMBICORT 160-4.5 MCG INHALER INHALATION SCH ×2 (07:21→20:20)
[2017-03-04] MEDS: VANCOMYCIN 1,500 MG in SODIUM CHLORIDE 0.9% 250 ML IVPB SCH (07:40)
[2017-03-04] MEDS: FUROSEMIDE 10 MG/ML 2 ML VIAL IV SCH (07:40)
[2017-03-04 07:41] LABS: Glucose,Whole Blood 241 mg/dL (75-99)
[2017-03-04] MEDS: ENOXAPARIN 40 MG/0.4 ML SYRINGE SQ SCH (07:41)
[2017-03-04] MEDS: FAMOTIDINE 20 MG TAB PO SCH ×2 (07:41→21:14)
[2017-03-04] MEDS: guaiFENesin SYRUP 100MG/5ML 200 MG/10 ML CUP PO PRN (07:41)
[2017-03-04] MEDS: INSULN ASP PRT/INSULIN ASPART 100 UNIT/ML 10 ML VIAL SQ SCH ×2 (08:33→17:40)
[2017-03-04] MEDS: INSULIN ASPART 100 UNIT/ML 1 ML 10 ML VIAL SQ SCH ×4 (08:33→21:15)
[2017-03-04] MEDS: LORazepam 1 MG TAB PO PRN (10:41)
[2017-03-04] MEDS: METOPROLOL TARTRATE 25 MG TAB PO SCH (10:41)
[2017-03-04] MEDS ORDERED: FUROSEMIDE 10 MG/ML 2 ML VIAL IV SCH (11:15)
[2017-03-04] MEDS ORDERED: BUTALB/APAP/CAFF 50-325-40MG TAB PO PRN (11:21)
[2017-03-04 11:36] LABS: Glucose,Whole Blood 102 mg/dL (75-99)
[2017-03-04] MEDS: COLLAGENASE 250 UNIT/GM OINTMENT 30 GM TUBE TOPICAL SCH (12:27)
[2017-03-04] MEDS: TORSEMIDE 20 MG TAB PO SCH (12:27)
[2017-03-04] MEDS: GABAPENTIN 100 MG CAP PO SCH ×3 (12:28→21:14)
--- NOTE | 2017-03-04 13:47 | P.PN ---
Subjective Progress Note Date: 03/04/17 Principal diagnosis: COPD exacerbation, lower extremity cellulitis Progress note dated 03/03/2017 This is a 81-year-old female who was admitted a couple days ago with a COPD exacerbation but also with the right lower extremity cellulitis. The patient had a x-ray of the right upper semi-which was negative for fracture and she also had a Doppler right of the right lower summary which is negative for DVT. She was having issues with steroids we stop the steroids for her COPD. In addition to COPD and cellulitis, she has a history of coronary artery disease, diabetes, hypertension, spinal stenosis with chronic back pain, CVA, irritable bowel syndrome, cataracts, and previous history of heavy nicotine dependence. Her breathing has significantly improved. Her lochia extremities are giving her more difficulty than her breathing at this time. Again the steroids were stopped because of the side effects and the fact that her sugars were elevated. Progress note dated 03/04/2017 This is a 81-year-old female who was admitted a couple days back with a diagnosis of COPD exacerbation but also lower extremity edema pain and cellulitis. In fact, the lower extremities symptoms and complaints were worsened her COPD. The patient had evaluation of the right lower extremity with x-rays. They were negative. A Doppler was also negative for DVT. She's been treated for cellulitis with antibiotics. She was also on steroids for her mild COPD exacerbation but because of side effects, they were discontinued. In addition to COPD, and cellulitis, she has a history of CAD diabetes hypertension spinal stenosis chronic back pain CVA IBS cataracts and previous history of heavy nicotine dependence. Her breathing is improved. Objective - Vital Signs Vital signs: Vital Signs Temp 98.2 F 03/04/17 10:40 Pulse 106 H 03/04/17 11:58 Resp 20 03/04/17 10:40 BP 160/78 03/04/17 10:40 Pulse Ox 96 03/04/17 10:40 Intake & Output 03/03/17 03/04/17 03/04/17 18:59 06:59 18:59 Intake Total 339.859 2567 Output Total 800 Balance -919.160 0813 Intake: Intake, IV Titration 1.033 Amount Insulin Regular 100 unit 1.033 In Sodium Chloride 0.9% 100 ml @ Titrate IV .Q0M [facility] Rx#:[id number] Oral 240 1390 Output: Urine 800 Other: Voiding Method Toilet Toilet Toilet # Voids 3 3 - Labs CBC & Chem 7: 03/03/17 07:07 03/03/17 07:07 Labs: Abnormal Lab Results - Last 24 Hours (Table) 03/03/17 03/03/17 03/03/17 Range/Units 07:07 17:02 20:27 POC Glucose (mg/dL) 259 H 333 H (75-99) mg/dL Hemoglobin A1c 8.1 H (4.0-6.0) % 03/04/17 03/04/17 Range/Units 07:14 11:34 POC Glucose (mg/dL) 241 H 102 H (75-99) mg/dL Hemoglobin A1c (4.0-6.0) % Microbiology - Last 24 Hours (Table) 03/01/17 11:30 Gram Stain - Final Leg - Right Wound Culture - Final Assessment and Plan Assessment: Assessment COPD exacerbation, much improved Right lower extremity cellulitis History of CAD Diabetes mellitus Hypertension Hyperlipidemia Chronic back pain secondary to spinal stenosis History of CVA Irritable bowel syndrome Cataracts Previous history of heavy tobacco use Plan: Plan dated 03/03/2017 Medications labs x-rays are reviewed. The chest x-ray show some right basilar atelectasis. No distinct infiltrate. The corticosteroids were discontinued. Her medications are reviewed. Labs are reviewed. Currently receiving antibiotics for the lower extremities cellulitis. The lower summary cellulitis tends to be much more significant in the right lower extremity. Plan dated 03/04/2017 The patient is doing much better. From the COPD standpoint, the patient basically at baseline. The major issue remains some swelling and edema with cellulitis of the right lower extremity. The cellulitis is currently being treated. No additional recommendations are made. We'll continue to follow. Prognosis is guarded. Time with Patient: Less than 30
--- NOTE | 2017-03-04 15:41 | P.PN ---
Subjective Progress Note Date: 03/04/17 This is a 81-year-old female patient of Dr. Thomason with past medical history of CAD, COPD, CVA and TIA, diabetes, hypertension, hyperlipidemia chronic back pain and spinal stenosis. 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 She then had lower leg edema in the area on her pretibial area bubbled up and then started draining green yesterday. She also has increased shortness of breath from her baseline. Her abdomen is distended but she states she is having bowel movements and has on and off diarrhea. She is on home O2 at bedtime only and her pulmonary physician is Dr. Axel elizondo and she has not slept since she came in last evening and is complaining of a headache and throbbing in her feet. She did try Motrin for the headache which was not relieved. Added and Tylenol and may try tramadol for headache. Blood sugars are elevated and an insulin drip will be started. Patient presented to [facility] emergency center and was diagnosed with bilateral lower extremity cellulitis worse on the right and COPD exacerbation. She was tachycardic but afebrile with normal white count. Chest x-ray showed minimal subsegmental atelectasis in the right middle lobe compared to old exam ultrasound of the lower extremity was negative for DVT on the right. Tib-fib x-ray shows subcutaneous edema and no fractures. Patient was started on DuoNeb treatments and vancomycin and [facility] and a consult was placed with pulmonary medicine. 03/02: Patient continues to have some shortness of breath. She has not had a bowel movement. In by Dr. Singer with recommendations to continue vancomycin and Santyl for local wound care. Patient is also been seen by Dr. Avila and Solu-Medrol has been decreased to 40 mg every 8 and now stopped by pulmonary medicine with no need for prednisone taper. Blood sugars are still running in the 200s and 300s for which insulin drip will be continued and expect significant improvement after steroids have been stopped. Patient has decided she'll like to go to [facility] and we will plan on Sunday discharge. 03/03 Patient appears to drowsy, takes ativan 2 mg TID, dose reduced to 1 mg po TID as needed. Patient sounds congested and lower extremities were swollen. Lasix 20 mg iv BID initiated. Mucinex initiated for congestion chest x-ray suggestive of mid lung atelectasis but no consolidation seen. Patient initiated on 25 mg twice daily NPH along with sliding scale. 03/04 patient complains of significant abdominal distention and discomfort. She strongly believes is related to Lasix and antibiotics. Lasix switch to torsemide 20 mg daily for lower extremity swelling. Patient complains of significant pain in the lower extremities but is not willing to try Ultram for pain. She also complains of headache and increased anxiety. Patient explained the side effects related to increased dose of Ativan and effect on the breathing. Ativan dose reduced to 0.5 mg 3 times a day. Furosemide initiated for headaches. Patient started on low-dose of gabapentin for lower extremity discomfort, as patient might have underlying diabetic neuropathy. Cefazolin initiated for cellulitis today. NovoLog mix increased to 30 mg twice a day due to uncontrolled blood sugars. Objective - Vital Signs Vital signs: Vital Signs Temp 98.2 F 03/04/17 10:40 Pulse 106 H 03/04/17 11:58 Resp 20 03/04/17 10:40 BP 160/78 03/04/17 10:40 Pulse Ox 96 03/04/17 10:40 Intake & Output 03/03/17 03/04/17 03/04/17 18:59 06:59 18:59 Intake Total 775.096 0193 360 Output Total 800 Balance -689.741 1214 360 Intake: Intake, IV Titration 1.033 Amount Insulin Regular 100 unit 1.033 In Sodium Chloride 0.9% 100 ml @ Titrate IV .Q0M [facility] Rx#:[id number] Oral 240 1390 360 Output: Urine 800 Other: Voiding Method Toilet Toilet Toilet # Voids 3 3 4 - Exam - Exam General appearance: no average body habitus, cooperative, disheveled, no mild distress, no morbidly obese, no no acute distress, no obese, no severe distress , no thin, appears sleepy during conversation - EENT Eyes: no abnormal pupil, no anicteric sclerae, no disc margins sharp, no edentulous, no EOMI, no PERRLA, no fundus normal, no photophobia, no dentition normal, no poor dentition, no ptosis, no scleral icterus, normal appearance ENT: hard of hearing, no hearing grossly normal, no NA/AT, normal oropharynx, no other, no pharyngeal erythema, no thrush, no tonsillar exudates, no tonsillar swelling Ears: bilateral: normal - Neck Quite bit pain and discomfort with significant restriction to motion. Neck: no lymphadenopathy, no normal ROM, no other, rigidity, no stridor, no thyromegaly Carotids: bilateral: upstroke normal Thyroid: bilateral: normal size - Respiratory Respiratory: bilateral: diminished, dullness, rales, rhonchi, no wheezing - Cardiovascular Rhythm: regular Heart sounds: normal: S1, S2 Abnormal Heart Sounds: systolic murmur, S3 Gallop - Gastrointestinal General gastrointestinal: no absent bowel sounds, decreased bowel sounds, no distended, no hepatomegaly, no hyperactive bowel sounds, no normal bowel sounds , no organomegaly, no rigid, no scaphoid, soft, splenomegaly, no tenderness, no umbilical hernia, no ventral hernia - Integumentary Integumentary: no calor,cellulitis right lower extremity with significant lower extremity edema bilaterally, open wound present on the lawson in the right lower extremity still draining, no cyanotic, no decreased turgor, no flushed, no jaundiced, normal, no normal turgor, pale, rash, no ulcer - Neurologic Neurologic: CNII-XII intact - Musculoskeletal Musculoskeletal: generalized weakness, no strength equal bilaterally, no right sided weakness, no left sided weakness - Labs CBC & Chem 7: 03/03/17 07:07 03/03/17 07:07 Labs: Abnormal Lab Results - Last 24 Hours (Table) 03/03/17 03/03/17 03/03/17 Range/Units 07:07 17:02 20:27 POC Glucose (mg/dL) 259 H 333 H (75-99) mg/dL Hemoglobin A1c 8.1 H (4.0-6.0) % 03/04/17 03/04/17 Range/Units 07:14 11:34 POC Glucose (mg/dL) 241 H 102 H (75-99) mg/dL Hemoglobin A1c (4.0-6.0) % Microbiology - Last 24 Hours (Table) 03/01/17 11:30 Gram Stain - Final Leg - Right Wound Culture - Final Assessment and Plan Plan: 1. Acute exacerbation of COPD. Consult with Dr. Avila. Continue DuoNeb treatments, Solu-Medrol discontinued. Mucinex 600 twice a day for congestion. Chest x-rays negative for consolidation 2. Cellulitis of the bilateral lower extremities most severe on the right lower extremity with pretibial wound. Consult with Dr. Singer. Patient is currently on vancomycin and Santyl is in place with local wound care. 3. Sinus headache unrelieved with ibuprofen. Tylenol will be tried and then tramadol. Patient has ALLERGY to codeine and morphine. Nasal saline rinse added. 4. Hypertension, hypertensive cardiovascular disease. Continue Lopressor 50 mg at bedtime. 5. Diabetes mellitus type 2 uncontrolled with hyperglycemia secondary to steroids. Patient initiated on 70/30 as part 30 twice a day along with sliding scale. Gabapentin 100 mg po TID initiated 6. History of tobacco use and dependence. 7. Osteoarthritis with degenerative disc disease and chronic back pain, stable. 8. Valvular heart disease, stable. 9. GI prophylaxis. Pepcid 20 mg twice daily 10. DVT prophylaxis. Lovenox. 11 Anxiety - Ativan decreased to 0.5 mg po TID Discharge plan: [facility] on Sunday under Dr. Doe.
[2017-03-04] MEDS: ceFAZolin IN SWFI 2 GM/20 ML SYRINGE IVP SCH ×2 (16:31→23:59)
[2017-03-04 17:05] LABS: Glucose,Whole Blood 246 mg/dL (75-99)
[2017-03-04 20:46] LABS: Glucose,Whole Blood 226 mg/dL (75-99)
[2017-03-04] MEDS: LORazepam 0.5 MG TAB PO PRN (21:32)
[2017-03-04] MEDS: METOPROLOL TARTRATE 50 MG TAB PO SCH (21:33)
[2017-03-05] MEDS: IPRATROPIUM-ALBUTEROL 3 ML NEB INHALATION SCH ×6 (00:05→20:14)
--- NOTE | 2017-03-05 07:12 | PN ---
PROGRESS NOTE DATE OF SERVICE: 03/04/2017 REASON FOR FOLLOWUP: Right leg wound and cellulitis. INTERVAL HISTORY: The patient is afebrile. She is feeling better. Breathing comfortably. Right leg pain and swelling has improved. The patient denies having any chest pain. No abdominal pain or diarrhea. PHYSICAL EXAMINATION: On examination, blood pressure is 128/69 with a pulse of 80, temperature of 97.5. She is 98% on 2 L nasal cannula. General description is an elderly female, lying in bed, in no distress. RESPIRATORY SYSTEM: Unlabored breathing, clear to auscultation anteriorly. HEART: S1, S2. Regular rate and rhythm. ABDOMEN: Soft, no tenderness. Right leg swelling and redness has improved. LABS: Vanco trough of 7. No CBC was done today. DIAGNOSTIC IMPRESSION AND PLAN: Patient with right leg wound, traumatic with secondary cellulitis. Patient did have slow clinical response likely because of low vancomycin trough. As no resistant organism grown, she has been switched to cefazolin, which the patient had tolerated and did have overall improvement. Plan to finish therapy with oral Keflex for another 7 to 10 days. Continue with supportive care. MMODL / IJN: [id number] / MTDD
[2017-03-05 07:13] LABS: Glucose,Whole Blood 271 mg/dL (75-99)
[2017-03-05] MEDS: SYMBICORT 160-4.5 MCG INHALER INHALATION SCH ×2 (08:40→20:14)
--- NOTE | 2017-03-05 08:51 | P.DS ---
Providers Date of admission: 03/01/17 14:56 Expected date of discharge: 03/06/17 Attending physician: Leisa Doe Consults: 03/01/17 00:34 Consult Physician Urgent Consulting Provider: Thee Reyna Consult Reason/Comments: copd Do you want consulting provider notified?: Yes 03/01/17 11:28 Consult Physician Routine Consulting Provider: Sergei Singer Consult Reason/Comments: wound right leg, cellulitis Do you want consulting provider notified?: Yes Primary care physician: Axel Thomason [facility] Course: This is a 81-year-old female patient of Dr. Thomason with past medical history of CAD, COPD, CVA and TIA, diabetes, hypertension, hyperlipidemia chronic back pain and spinal stenosis. Patient states that she had a fall at home about 1 week ago when she tripped over her [employer] hockey equipment and fell and hitting her head, right elbow/arm and right lower leg. She then had lower leg edema in the area on her pretibial area bubbled up and then started draining green yesterday. She also has increased shortness of breath from her baseline. Her abdomen is distended but she states she is having bowel movements and has on and off diarrhea. She is on home O2 at bedtime only and her pulmonary physician is Dr. Axel elizondo and she has not slept since she came in last evening and is complaining of a headache and throbbing in her feet. She did try Motrin for the headache which was not relieved. Added and Tylenol and may try tramadol for headache. Blood sugars are elevated and an insulin drip will be started. Patient presented to [facility] emergency center and was diagnosed with bilateral lower extremity cellulitis worse on the right and COPD exacerbation. She was tachycardic but afebrile with normal white count. Chest x-ray showed minimal subsegmental atelectasis in the right middle lobe compared to old exam ultrasound of the lower extremity was negative for DVT on the right. Tib-fib x-ray shows subcutaneous edema and no fractures. Patient was started on DuoNeb treatments and vancomycin and admitted to the Medr floor and a consult was placed with pulmonary medicine. 03/02: Patient continues to have some shortness of breath. She has not had a bowel movement. In by Dr. Singer with recommendations to continue vancomycin and Santyl for local wound care. Patient is also been seen by Dr. Avila and Solu-Medrol has been decreased to 40 mg every 8 and now stopped by pulmonary medicine with no need for prednisone taper. Blood sugars are still running in the 200s and 300s for which insulin drip will be continued and expect significant improvement after steroids have been stopped. Patient has decided she'll like to go to [facility] and we will plan on Sunday discharge. 03/03 Patient appears to drowsy, takes ativan 2 mg TID, dose reduced to 1 mg po TID as needed. Patient sounds congested and lower extremities were swollen. Lasix 20 mg iv BID initiated. Mucinex initiated for congestion chest x-ray suggestive of mid lung atelectasis but no consolidation seen. Patient initiated on 25 mg twice daily NPH along with sliding scale. 03/04 patient complains of significant abdominal distention and discomfort. She strongly believes is related to Lasix and antibiotics. Lasix switch to torsemide 20 mg daily for lower extremity swelling. Patient complains of significant pain in the lower extremities but is not willing to try Ultram for pain. She also complains of headache and increased anxiety. Patient explained the side effects related to increased dose of Ativan and effect on the breathing. Ativan dose reduced to 0.5 mg 3 times a day. Furosemide initiated for headaches. Patient started on low-dose of gabapentin for lower extremity discomfort, as patient might have underlying diabetic neuropathy. Cefazolin initiated for cellulitis today. NovoLog mix increased to 30 mg twice a day due to uncontrolled blood sugars. 03/05: Blood sugars are elevated for which patient will be returned back on her home dose of insulin. Her hemoglobin A1c was 8.1. White count today is at 12. She has been afebrile. Dr. Singer changed antibiotics to Kefzol Yesterday with Recommendations for Keflex for Another 7-10 Days. Patient is complaining of loose stool and abdominal distention. Abdominal x-ray ordered. Azithromycin has been added. Orthostatics have been checked and are negative. Patient was complaining of lightheadedness. Anticipate discharge tomorrow. 03/06: Abdominal x-ray shows nonspecific nonobstructive bowel gas pattern. She continues to complain of loose/soft stools for which questran will be added. Staff deny diarrhea. Blood sugars elevateed and insulin increased and Januvia added. Prednisone decreased to 20 mg daily. Orthostatics are again negative. Patient has been cleared for discharge by pulmonary medicine. Patient will be discharged to [facility] today in stable condition. Discharge diagnoses: 1. Acute exacerbation of COPD. 2. Cellulitis of the bilateral lower extremities most severe on the right lower extremity with pretibial wound. 3. Sinus headache 4. Hypertension, hypertensive cardiovascular disease. 5. Diabetes mellitus type 2 uncontrolled with hyperglycemia secondary to steroids. 6. History of tobacco use and dependence. 7. Osteoarthritis with degenerative disc disease and chronic back pain, stable. 8. Valvular heart disease, stable. 9. Generalized anxiety disorder Discharge plan: [facility] under Dr. Doe. Impression and plan of care have been directed as dictated by the signing physician. Romy Zuniga nurse practitioner acting as scribe for signing physician. Patient Condition at Discharge: Good Plan - Discharge Summary Discharge Rx Participant: No New Discharge Prescriptions: New Budesonide-Formot 160-4.5 Mcg [Symbicort 160-4.5 Mcg Inhaler] 2 puff INHALATION RT-BID puff Butalb/APAP/Caff 50-325-40Mg [Fioricet 50-325-40] 1 each PO Q4HR PRN tab PRN Reason: Headache Cephalexin [Keflex] 500 mg PO Q8HR #21 cap Collagenase [Santyl] 1 applic TOPICAL DAILY applic Famotidine [Pepcid] 20 mg PO BID tab Gabapentin [Neurontin] 100 mg PO TID cap guaiFENesin SYRUP 100MG/5ML [Robitussin] 200 mg PO Q4H PRN cup PRN Reason: Cough Insulin Aspart [NovoLOG (formulary)] 0 unit SQ ACHS vial LORazepam [Ativan] 0.5 mg PO TID PRN #90 tab PRN Reason: anxiety Torsemide [Demadex] 20 mg PO DAILY tab Azithromycin 250 mg PO DAILY 3 Days #3 tab Cholestyramine (with Sugar) [Questran] 4 gm PO BID #20 packet Insulin Aspart [NovoLOG (formulary)] 5 unit SQ AC-TID vial Insuln Asp Prt/Insulin Aspart [NovoLOG MIX 70-30 VIAL] 52 unit SQ AC-BID vial predniSONE 20 mg PO DAILY #5 tab sitaGLIPtin [Januvia] 100 mg PO DAILY #30 tab Continue Ipratropium/Albuterol Sulfate [Duoneb 0.5 mg-3 mg/3 ml Soln] 3 ml INHALATION RT-QID PRN PRN Reason: Shortness Of Breath Albuterol Inhaler [Ventolin Hfa Inhaler] 1 - 2 puff INHALATION RT-Q6H PRN PRN Reason: Shortness Of Breath Metoprolol Tartrate [Lopressor] 25 mg PO DAILY Metoprolol Tartrate [Lopressor] 50 mg PO HS Discontinued Insulin Aspart Protam & Aspart [NovoLOG MIX 70-30 Flexpen] 48 unit SQ BID LORazepam [Ativan] 2 mg PO TID PRN #90 tab PRN Reason: Anxiety Discharge Medication List Ipratropium/Albuterol Sulfate [Duoneb 0.5 mg-3 mg/3 ml Soln] 3 ml INHALATION RT- QID PRN 06/12/13 [History] Albuterol Inhaler [Ventolin Hfa Inhaler] 1 - 2 puff INHALATION RT-Q6H PRN [History] Metoprolol Tartrate [Lopressor] 25 mg PO DAILY 05/19/14 [History] Metoprolol Tartrate [Lopressor] 50 mg PO HS 08/04/16 [History] Budesonide-Formot 160-4.5 Mcg [Symbicort 160-4.5 Mcg Inhaler] 2 puff INHALATION RT-BID puff 03/05/17 [Rx] Butalb/APAP/Caff 50-325-40Mg [Fioricet 50-325-40] 1 each PO Q4HR PRN tab [Rx] Cephalexin [Keflex] 500 mg PO Q8HR #21 cap 03/05/17 [Rx] Collagenase [Santyl] 1 applic TOPICAL DAILY applic 03/05/17 [Rx] Famotidine [Pepcid] 20 mg PO BID tab 03/05/17 [Rx] Gabapentin [Neurontin] 100 mg PO TID cap 03/05/17 [Rx] Insulin Aspart [NovoLOG (formulary)] 0 unit SQ ACHS vial 03/05/17 [Rx] LORazepam [Ativan] 0.5 mg PO TID PRN #90 tab 03/05/17 [Rx] Torsemide [Demadex] 20 mg PO DAILY tab 03/05/17 [Rx] guaiFENesin SYRUP 100MG/5ML [Robitussin] 200 mg PO Q4H PRN cup 03/05/17 [Rx] Azithromycin 250 mg PO DAILY 3 Days #3 tab 03/06/17 [Rx] Cholestyramine (with Sugar) [Questran] 4 gm PO BID #20 packet 03/06/17 [Rx] Insulin Aspart [NovoLOG (formulary)] 5 unit SQ AC-TID vial 03/06/17 [Rx] Insuln Asp Prt/Insulin Aspart [NovoLOG MIX 70-30 VIAL] 52 unit SQ AC-BID vial 03/06/17 [Rx] predniSONE 20 mg PO DAILY #5 tab 03/06/17 [Rx] sitaGLIPtin [Januvia] 100 mg PO DAILY #30 tab 03/06/17 [Rx] Follow up Appointment(s)/Referral(s): Axel Thomason DO [Primary Care Provider] - 1 Week (After discharge from [facility]CF) Sergei Singer MD [STAFF PHYSICIAN] - 1 Week Discharge Disposition: TRANSFER TO SNF/ECF
[2017-03-05] MEDS: ENOXAPARIN 40 MG/0.4 ML SYRINGE SQ SCH (08:53)
[2017-03-05] MEDS: COLLAGENASE 250 UNIT/GM OINTMENT 30 GM TUBE TOPICAL SCH (08:53)
[2017-03-05] MEDS: TORSEMIDE 20 MG TAB PO SCH (08:54)
[2017-03-05] MEDS: METOPROLOL TARTRATE 25 MG TAB PO SCH (08:54)
[2017-03-05] MEDS: FAMOTIDINE 20 MG TAB PO SCH ×2 (08:54→21:45)
[2017-03-05] MEDS: GABAPENTIN 100 MG CAP PO SCH ×3 (08:54→21:48)
[2017-03-05] MEDS: ceFAZolin IN SWFI 2 GM/20 ML SYRINGE IVP SCH ×3 (08:58→23:04)
[2017-03-05] MEDS: INSULN ASP PRT/INSULIN ASPART 100 UNIT/ML 10 ML VIAL SQ SCH ×2 (08:59→17:46)
[2017-03-05] MEDS: INSULIN ASPART 100 UNIT/ML 1 ML 10 ML VIAL SQ SCH ×4 (08:59→21:45)
[2017-03-05 11:18] LABS: Glucose,Whole Blood 217 mg/dL (75-99)
[2017-03-05] MEDS: guaiFENesin SYRUP 100MG/5ML 200 MG/10 ML CUP PO PRN (11:59)
[2017-03-05] MEDS ORDERED: predniSONE 10 MG TAB PO SCH (12:00)
--- NOTE | 2017-03-05 12:45 | P.PN ---
Subjective Progress Note Date: 03/05/17 This is a 81-year-old female patient of Dr. Thomason with past medical history of CAD, COPD, CVA and TIA, diabetes, hypertension, hyperlipidemia chronic back pain and spinal stenosis. 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 She then had lower leg edema in the area on her pretibial area bubbled up and then started draining green yesterday. She also has increased shortness of breath from her baseline. Her abdomen is distended but she states she is having bowel movements and has on and off diarrhea. She is on home O2 at bedtime only and her pulmonary physician is Dr. Axel elizondo and she has not slept since she came in last evening and is complaining of a headache and throbbing in her feet. She did try Motrin for the headache which was not relieved. Added and Tylenol and may try tramadol for headache. Blood sugars are elevated and an insulin drip will be started. Patient presented to [facility] emergency center and was diagnosed with bilateral lower extremity cellulitis worse on the right and COPD exacerbation. She was tachycardic but afebrile with normal white count. Chest x-ray showed minimal subsegmental atelectasis in the right middle lobe compared to old exam ultrasound of the lower extremity was negative for DVT on the right. Tib-fib x-ray shows subcutaneous edema and no fractures. Patient was started on DuoNeb treatments and vancomycin [facility] and a consult was placed with pulmonary medicine. 03/02: Patient continues to have some shortness of breath. She has not had a bowel movement. In by Dr. salinas with recommendations to continue vancomycin and Santyl for local wound care. Patient is also been seen by Dr. Avila and Solu- Medrol has been decreased to 40 mg every 8 and now stopped by pulmonary medicine with no need for prednisone taper. Blood sugars are still running in the 200s and 300s for which insulin drip will be continued and expect significant improvement after steroids have been stopped. Patient has decided she'll like to go to [facility] and we will plan on Sunday discharge. 03/03 Patient appears to drowsy, takes ativan 2 mg TID, dose reduced to 1 mg po TID as needed. Patient sounds congested and lower extremities were swollen. Lasix 20 mg iv BID initiated. Mucinex initiated for congestion chest x-ray suggestive of mid lung atelectasis but no consolidation seen. Patient initiated on 25 mg twice daily NPH along with sliding scale. 03/04 patient complains of significant abdominal distention and discomfort. She strongly believes is related to Lasix and antibiotics. Lasix switch to torsemide 20 mg daily for lower extremity swelling. Patient complains of significant pain in the lower extremities but is not willing to try Ultram for pain. She also complains of headache and increased anxiety. Patient explained the side effects related to increased dose of Ativan and effect on the breathing. Ativan dose reduced to 0.5 mg 3 times a day. Furosemide initiated for headaches. Patient started on low-dose of gabapentin for lower extremity discomfort, as patient might have underlying diabetic neuropathy. Cefazolin initiated for cellulitis today. NovoLog mix increased to 30 mg twice a day due to uncontrolled blood sugars. 03/05: Blood sugars are elevated for which patient will be returned back on her home dose of insulin. Her hemoglobin A1c was 8.1. White count today is at 12. She has been afebrile. Dr. Singer changed antibiotics to Kefzol Yesterday with Recommendations for Keflex for Another 7-10 Days. Patient is complaining of loose stool and abdominal distention. Abdominal x-ray ordered. Azithromycin has been added. Orthostatics have been checked and are negative. Patient was complaining of lightheadedness. Anticipate discharge tomorrow. Objective - Vital Signs Vital signs: Vital Signs Temp 97.7 F 03/05/17 07:00 Pulse 100 03/05/17 08:53 Resp 16 03/05/17 07:00 BP 134/77 03/05/17 11:41 Pulse Ox 95 03/05/17 07:00 Intake & Output 03/04/17 03/05/17 03/05/17 18:59 06:59 18:59 Intake Total 360 970 Balance 360 970 Intake: Oral 360 970 Other: Voiding Method Toilet Toilet # Voids 4 1 - Exam General appearance: no average body habitus, cooperative, disheveled, no mild distress, no morbidly obese, no no acute distress, no obese, no severe distress , no thin - EENT Eyes: no abnormal pupil, no anicteric sclerae, no disc margins sharp, no edentulous, no EOMI, no PERRLA, no fundus normal, no photophobia, no dentition normal, no poor dentition, no ptosis, no scleral icterus, normal appearance ENT: hard of hearing, no hearing grossly normal, no NA/AT, normal oropharynx, no other, no pharyngeal erythema, no thrush, no tonsillar exudates, no tonsillar swelling Ears: bilateral: normal - Neck Quite bit pain and discomfort with significant restriction to motion. Neck: no lymphadenopathy, no normal ROM, no other, rigidity, no stridor, no thyromegaly Carotids: bilateral: upstroke normal Thyroid: bilateral: normal size - Respiratory Respiratory: bilateral: diminished, dullness, rales, rhonchi, wheezing - Cardiovascular Rhythm: regular Heart sounds: normal: S1, S2 Abnormal Heart Sounds: systolic murmur, S3 Gallop - Gastrointestinal General gastrointestinal: no absent bowel sounds, decreased bowel sounds, no distended, no hepatomegaly, no hyperactive bowel sounds, no normal bowel sounds , no organomegaly, no rigid, no scaphoid, soft, splenomegaly, no tenderness, no umbilical hernia, no ventral hernia - Integumentary Integumentary: no calor, no cellulitis, no cyanotic, no decreased turgor, no flushed, no jaundiced, normal, no normal turgor, pale, rash, no ulcer - Neurologic Neurologic: CNII-XII intact - Musculoskeletal Musculoskeletal: no gait normal, generalized weakness, no strength equal bilaterally, no right sided weakness, no left sided weakness - Psychiatric - Labs CBC & Chem 7: 03/03/17 07:07 03/03/17 07:07 Labs: Abnormal Lab Results - Last 24 Hours (Table) 03/04/17 03/04/17 03/05/17 Range/Units 17:01 20:43 07:07 POC Glucose (mg/dL) 246 H 226 H 271 H (75-99) mg/dL 03/05/17 Range/Units 11:16 POC Glucose (mg/dL) 217 H (75-99) mg/dL Assessment and Plan Plan: 1. Acute exacerbation of COPD. Consult with Dr. Avila. Continue DuoNeb treatments, oral prednisone. 2. Cellulitis of the bilateral lower extremities most severe on the right lower extremity with pretibial wound. Consult with Dr. Singer. Patient is currently on Kefzol and Santyl is in place with local wound care. 3. Sinus headache unrelieved with ibuprofen. Fioricet. Nasal saline rinse added. 4. Hypertension, hypertensive cardiovascular disease. Continue Lopressor 50 mg at bedtime. 5. Diabetes mellitus type 2 uncontrolled with hyperglycemia secondary to steroids. Patient on insulin 7030 increased to 48 units twice daily and scale. 6. History of tobacco use and dependence. 7. Osteoarthritis with degenerative disc disease and chronic back pain, stable. 8. Valvular heart disease, stable. 9. GI prophylaxis. Pepcid 20 mg daily. 10. DVT prophylaxis. Lovenox. Discharge plan: [facility] on Sunday under Dr. Doe. Impression and plan of care have been directed as dictated by the signing physician. Romy Zuniga nurse practitioner acting as scribe for signing physician.
[2017-03-05] MEDS: AZITHROMYCIN 500 MG TAB PO SCH (13:25)
--- NOTE | 2017-03-05 14:43 | XR ---
EXAMINATION TYPE: XR abdomen 2V DATE OF EXAM: 03/05/2017 HISTORY: Pain. Technique: 3 views of the abdomen are submitted. Comparison: None. Findings: There is no convincing evidence of pneumoperitoneum. The Bowel gas pattern is nonspecific and nonobstructive. No sizable air-fluid levels are seen. No mass effects are noted. No renal calcifications are identified. IMPRESSION: 1. Nonspecific nonobstructive bowel gas pattern
--- NOTE | 2017-03-05 15:00 | P.PN ---
Subjective Progress Note Date: 03/05/17 Principal diagnosis: Mild COPD exacerbation, right lower leg draining wound post mechanical fall Kelly is a 81-year-old white female patient of Dr. Thomason, presented to the emergency department on 02/28/2017 at 2100 after sustaining a mechanical fall one week ago and developing increased swelling in her right leg along with redness, induration, this subsequently ruptured and drained yellow-green pussy material. She was also complaining of increasing shortness of breath, productive cough, wheezing. Does have underlying history of COPD, she is an ex- smoker, used to see Dr. Reyna in our office, although has not seen him in the long time. Denies any fever, chills, chest pain, hemoptysis. She is on DuoNeb nebulized treatments 4 times a day as needed, and has a Ventolin HFA inhaler. Chest x-ray taken in the ED on 02/28/2017 shows new minimal subsegmental atelectasis in the right middle lobe, compared to old exam from . No evidence of heart failure. X-ray of the right tibia and fibula showed subcutaneous edema, but no evidence of fracture. Venous ultrasound of the right leg was negative for DVT. Lab work showed WBC within normal limits of 8.4, hemoglobin of 12.5, no evidence of coagulopathy, no electrolyte abnormality, BUN 14, creatinine of 1.07, glucose of 357, proBNP within normal limits of 218, troponin and cardiac enzymes negative 1. Patient is afebrile, slightly tachycardic with a rate of 101-108 BPM, she is on room air with O2 sat at 94%. She was given a dose of Rocephin, was started on vancomycin, IV Solu- Medrol, DuoNeb nebulized treatments, her wound on the right leg was cultured, ID service was consulted. She was admitted to medical surgical floor for further management. On 03/02/2017 patient seen in follow-up on medical surgical floor. From pulmonary standpoint she states she is feeling better, although does still have exertional dyspnea. Currently on room air, with O2 sat at 95%. Remains afebrile, hemodynamically stable. Slightly tachycardic with a rate ranging between 90-104 BPM. Lung sounds are clear, diminished, no rhonchi, no wheezes were noted. Right leg wound culture is pending. Patient is covered with IV vancomycin. Still has significant hyperglycemia related to IV Solu-Medrol. Due to evidence of no wheezing at all, we will stop the IV Solu-Medrol, no need for prednisone taper. At this point the main issue seems to be the right lower leg wound, which is also causing her some pain. This is being followed by the ID service. On 03/05/2017 patient seen in follow-up on medical surgical floor. Lung sounds are diminished, congested loose cough, with no sputum production. 2 L per nasal cannula with O2 sat 95%. Vital signs are stable, afebrile. Wound culture of the right leg showed a few normal skin isaac. There is still some tenderness right lower leg wound. She continues on Zithromax, Kefzol per ID service recommendation. Discharge was held today in view of abdominal distention and loose stools. Objective - Vital Signs Vital signs: Vital Signs Temp 97.7 F 03/05/17 07:00 Pulse 100 03/05/17 13:33 Resp 16 03/05/17 07:00 BP 134/77 03/05/17 11:41 Pulse Ox 95 03/05/17 07:00 Intake & Output 03/04/17 03/05/17 03/05/17 18:59 06:59 18:59 Intake Total 360 970 Balance 360 970 Intake: Oral 360 970 Other: Voiding Method Toilet Toilet # Voids 4 1 - Exam GENERAL EXAM: Alert, active, comfortable in no apparent distress. HEAD: Normocephalic/atraumatic. EYES: Normal reaction of pupils, equal size. Conjunctiva pink, sclera white. NOSE: Clear with pink turbinates. THROAT: No erythema or exudates. NECK: No masses, no JVD, no thyroid enlargement, no adenopathy. CHEST: No chest wall deformity. Symmetrical expansion. LUNGS: Equal air entry with no crackles, wheeze, rhonchi or dullness. Diminished breath sounds bilaterally CVS: Regular rate and rhythm, normal S1 and S2, no gallops, no murmurs, no rubs ABDOMEN: Soft, nontender. No hepatosplenomegaly, normal bowel sounds, no guarding or rigidity. EXTREMITIES: No clubbing, no cyanosis, 2+ pulses and upper and lower extremities. Patient has bilateral lower extremity edema, right leg wound, which is covered with a dressing, and the leg is Jeremy wrapped MUSCULOSKELETAL: Muscle strength and tone normal. SPINE: No scoliosis or deformity SKIN: No rashes CENTRAL NERVOUS SYSTEM: Alert and oriented -3. No focal deficits, tone is normal in all 4 extremities. PSYCHIATRIC: Alert and oriented -3. Appropriate affect. Intact judgment and insight. - Labs CBC & Chem 7: 03/03/17 07:07 03/03/17 07:07 Labs: Abnormal Lab Results - Last 24 Hours (Table) 03/04/17 03/04/17 03/05/17 Range/Units 17:01 20:43 07:07 POC Glucose (mg/dL) 246 H 226 H 271 H (75-99) mg/dL 03/05/17 Range/Units 11:16 POC Glucose (mg/dL) 217 H (75-99) mg/dL Assessment and Plan Plan: Assessment: #1. Acute exacerbation of COPD, with bedtime oxygen. Improving #2. Right lower leg draining wound after a mechanical fall a week ago, with yellow-green drainage. X-ray of right tibia/fibula on 02/28/2017 shows subcutaneous edema but no fracture. Wound cultures were sent, patient was started on vancomycin #3. Bilateral lower leg cellulitis #4. History of coronary artery disease #5. Diabetes mellitus, with Solu-Medrol induced hyperglycemia #6. Hypertension, hyperlipidemia, #7. Chronic back pain, spinal stenosis #8. History of CVA/TIA #9. Irritable bowel syndrome #10. Cataracts #11. 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 Continue with antibiotics per ID service, nebulized treatments, prednisone was added back on by the attending physician. Her discharge was held today in view of her abdominal discomfort and distention. Abdominal x-ray showed nonspecific nonobstructive bowel gas pattern. Remains stable from pulmonary standpoint and from our standpoint she currently discharged home whenever cleared by her attending physician. I performed a history & physical examination of the patient and discussed their management with my nurse practitioner, Shawna Stallworth. I reviewed the nurse practitioner's note and agree with the documented findings and plan of care. Lung sounds are diminished. The findings and the impression was discussed with the patient. I attest to the documentation by the nurse practitioner. Time with Patient: Less than 30
--- NOTE | 2017-03-05 15:13 | PN ---
PROGRESS NOTE DATE OF SERVICE: 03/05/2017. REASON FOR FOLLOWUP: Right leg wound and cellulitis. INTERVAL HISTORY: The patient is afebrile. Admits that she is not feeling well today. Denies having any chest pain, some shortness of breath. Minimal cough. No abdominal pain. Denies any pain in the right leg area. PHYSICAL EXAMINATION: Blood pressure 136/60 with a pulse of 96, temperature 97.7, she is 95% on 2 L nasal cannula. General description is an elderly female lying in bed in no distress. Respiratory system: Unlabored breathing, clear to auscultation anteriorly. Heart S1, S2. Regular rate and rhythm. Abdomen soft, no tenderness. Right leg wound with minimal slough, surrounding redness improved. No drainage. LABS: No new labs have been obtained today. Blood culture has been negative. DIAGNOSTIC IMPRESSION AND PLAN: Patient with right leg wound, traumatic with secondary cellulitis. Culture negative for resistant pathogen. The patient will continue with Santyl to the wound followed by moist dressing and a light Jeremy wrap to keep the swelling down. Antibiotic in the form of Cefazolin that will be transitioned to oral Keflex on discharge for another 7 to 10 days with close outpatient followup. MMODL / IJN: [id number] /
[2017-03-05] MEDS: LORazepam 0.5 MG TAB PO PRN ×2 (17:03→21:45)
[2017-03-05 17:24] LABS: Glucose,Whole Blood 347 mg/dL (75-99)
[2017-03-05] MEDS ORDERED: INSULN ASP PRT/INSULIN ASPART 100 UNIT/ML 10 ML VIAL SQ SCH (17:30)
[2017-03-05] MEDS ORDERED: INSULIN ASPART 100 UNIT/ML 1 ML 10 ML VIAL SQ SCH (17:30)
[2017-03-05 20:50] LABS: Glucose,Whole Blood 425 mg/dL (75-99)
[2017-03-05 20:50] LABS: Glucose,Whole Blood 406 mg/dL (75-99)
[2017-03-05] MEDS ORDERED: INSULIN ASPART 100 UNIT/ML 1 ML 10 ML VIAL SQ ONE (21:18)
[2017-03-05] MEDS: METOPROLOL TARTRATE 50 MG TAB PO SCH (21:45)
[2017-03-06] MEDS: IPRATROPIUM-ALBUTEROL 3 ML NEB INHALATION SCH ×4 (00:11→12:17)
[2017-03-06 03:54] VITALS: TEMP 98.6
[2017-03-06 07:45] LABS: Glucose,Whole Blood 165 mg/dL (75-99)
[2017-03-06 07:50] VITALS: BP 153/71; RESP 18
[2017-03-06] MEDS: SYMBICORT 160-4.5 MCG INHALER INHALATION SCH (08:28)
[2017-03-06 08:32] LABS: Basophils # (A) 0.1 k/uL (0-0.2); Basophils % (A) 1 %; Eosinophils # (A) 0.2 k/uL (0-0.7); Eosinophils % (A) 1 %; HCT 39.4 % (34.0-46.0); HGB 13.3 gm/dL (11.4-16.0); Lymphocytes # (A) 1.9 k/uL (1.0-4.8); Lymphocytes % (A) 14 %; MCH 28.7 pg (25.0-35.0); MCHC 33.8 g/dL (31.0-37.0); MCV 84.8 fL (80.0-100.0); Mean Platelet Volume 7.7; Monocytes % (A) 7 %; Neutrophils # (A) 10.3 k/uL (1.3-7.7); Neutrophils % (A) 76 %; Platelet Count 282 k/uL (150-450); Poikilocytosis Slight; RBC 4.64 m/uL (3.80-5.40); RDW 14.6 % (11.5-15.5); WBC 13.6 k/uL (3.8-10.6)
[2017-03-06] MEDS: AZITHROMYCIN 500 MG TAB PO SCH (08:36)
[2017-03-06] MEDS: TORSEMIDE 20 MG TAB PO SCH (08:36)
[2017-03-06] MEDS: GABAPENTIN 100 MG CAP PO SCH (08:36)
[2017-03-06] MEDS: METOPROLOL TARTRATE 25 MG TAB PO SCH (08:36)
[2017-03-06] MEDS: INSULN ASP PRT/INSULIN ASPART 100 UNIT/ML 10 ML VIAL SQ SCH (08:37)
[2017-03-06] MEDS: INSULIN ASPART 100 UNIT/ML 1 ML 10 ML VIAL SQ SCH ×4 (08:37→13:13)
[2017-03-06] MEDS: ceFAZolin IN SWFI 2 GM/20 ML SYRINGE IVP SCH (08:37)
[2017-03-06] MEDS: FAMOTIDINE 20 MG TAB PO SCH (08:37)
[2017-03-06] MEDS: ENOXAPARIN 40 MG/0.4 ML SYRINGE SQ SCH (08:38)
[2017-03-06] MEDS: COLLAGENASE 250 UNIT/GM OINTMENT 30 GM TUBE TOPICAL SCH (08:38)
[2017-03-06] MEDS: guaiFENesin SYRUP 100MG/5ML 200 MG/10 ML CUP PO PRN (08:42)
[2017-03-06] MEDS ORDERED: predniSONE 20 MG TAB PO SCH (09:00)
[2017-03-06 09:14] LABS: ALT 35 U/L (9-52); AST 22 U/L (14-36); Albumin 4.2 g/dL (3.5-5.0); Alkaline Phosphatase 79 U/L (38-126); Anion Gap 14 mmol/L; Blood Urea Nitrogen 26 mg/dL (7-17); Calcium 9.9 mg/dL (8.4-10.2); Carbon Dioxide 31 mmol/L (22-30); Chloride 95 mmol/L (98-107); Glucose 168 mg/dL (74-99); Potassium 3.4 mmol/L (3.5-5.1); Sodium 140 mmol/L (137-145); Total Bilirubin 0.5 mg/dL (0.2-1.3)
[2017-03-06] MEDS ORDERED: POTASSIUM CHLORIDE ER 20 MEQ TAB.ER PO STA (10:01)
[2017-03-06 11:06] LABS: Glucose,Whole Blood 171 mg/dL (75-99)
[2017-03-06 12:21] VITALS: PULSE 98
--- NOTE | 2017-03-06 13:03 | P.PN ---
Subjective Progress Note Date: 03/06/17 Principal diagnosis: Mild COPD exacerbation, right lower leg draining wound post mechanical fall Kelly is a 81-year-old white female patient of Dr. Thomason, presented to the emergency department on 02/28/2017 at 2100 after sustaining a mechanical fall one week ago and developing increased swelling in her right leg along with redness, induration, this subsequently ruptured and drained yellow-green pussy material. She was also complaining of increasing shortness of breath, productive cough, wheezing. Does have underlying history of COPD, she is an ex- smoker, used to see Dr. Reyna in our office, although has not seen him in the long time. Denies any fever, chills, chest pain, hemoptysis. She is on DuoNeb nebulized treatments 4 times a day as needed, and has a Ventolin HFA inhaler. Chest x-ray taken in the ED on 02/28/2017 shows new minimal subsegmental atelectasis in the right middle lobe, compared to old exam from . No evidence of heart failure. X-ray of the right tibia and fibula showed subcutaneous edema, but no evidence of fracture. Venous ultrasound of the right leg was negative for DVT. Lab work showed WBC within normal limits of 8.4, hemoglobin of 12.5, no evidence of coagulopathy, no electrolyte abnormality, BUN 14, creatinine of 1.07, glucose of 357, proBNP within normal limits of 218, troponin and cardiac enzymes negative 1. Patient is afebrile, slightly tachycardic with a rate of 101-108 BPM, she is on room air with O2 sat at 94%. She was given a dose of Rocephin, was started on vancomycin, IV Solu- Medrol, DuoNeb nebulized treatments, her wound on the right leg was cultured, ID service was consulted. She was admitted to medical surgical floor for further management. On 03/02/2017 patient seen in follow-up on medical surgical floor. From pulmonary standpoint she states she is feeling better, although does still have exertional dyspnea. Currently on room air, with O2 sat at 95%. Remains afebrile, hemodynamically stable. Slightly tachycardic with a rate ranging between 90-104 BPM. Lung sounds are clear, diminished, no rhonchi, no wheezes were noted. Right leg wound culture is pending. Patient is covered with IV vancomycin. Still has significant hyperglycemia related to IV Solu-Medrol. Due to evidence of no wheezing at all, we will stop the IV Solu-Medrol, no need for prednisone taper. At this point the main issue seems to be the right lower leg wound, which is also causing her some pain. This is being followed by the ID service. On 03/05/2017 patient seen in follow-up on medical surgical floor. Lung sounds are diminished, congested loose cough, with no sputum production. 2 L per nasal cannula with O2 sat 95%. Vital signs are stable, afebrile. Wound culture of the right leg showed a few normal skin isaac. There is still some tenderness right lower leg wound. She continues on Zithromax, Kefzol per ID service recommendation. Discharge was held today in view of abdominal distention and loose stools. On 03/06/2017 patient seen in follow-up. Lung sounds are positive for a few scattered rhonchi, patient still has the persistent loose congested nonproductive cough. Denies afebrile, she is on room air, with O2 sat at 92%. Vital signs are stable. Denies any worsening dyspnea. Has been ambulating in the room, tolerating it well. Her right lower extremity wound is covered with the dressing, surrounding area remains swollen, and red, but improved since admission. No warmth noted. Discharge planning is in progress for discharge to [facility] subacute rehab today on an outpatient course of oral Keflex. Objective - Vital Signs Vital signs: Vital Signs Temp 98.6 F 03/06/17 07:00 Pulse 98 03/06/17 12:33 Resp 18 03/06/17 07:00 BP 153/71 03/06/17 07:00 Pulse Ox 92 L 03/06/17 08:31 Intake & Output 03/05/17 03/06/17 03/06/17 18:59 06:59 18:59 Intake Total 500 780 240 Balance 500 780 240 Intake: Oral 500 780 240 Other: Voiding Method Toilet Toilet # Voids 5 2 # Bowel Movements 2 - Exam GENERAL EXAM: Alert, active, comfortable in no apparent distress. HEAD: Normocephalic/atraumatic. EYES: Normal reaction of pupils, equal size. Conjunctiva pink, sclera white. NOSE: Clear with pink turbinates. THROAT: No erythema or exudates. NECK: No masses, no JVD, no thyroid enlargement, no adenopathy. CHEST: No chest wall deformity. Symmetrical expansion. LUNGS: Equal air entry with no crackles, wheeze, rhonchi or dullness. Diminished breath sounds bilaterally CVS: Regular rate and rhythm, normal S1 and S2, no gallops, no murmurs, no rubs ABDOMEN: Soft, nontender. No hepatosplenomegaly, normal bowel sounds, no guarding or rigidity. EXTREMITIES: No clubbing, no cyanosis, 2+ pulses and upper and lower extremities. Patient has bilateral lower extremity edema, right leg wound, which is covered with a dressing, and the leg is Jeremy wrapped MUSCULOSKELETAL: Muscle strength and tone normal. SPINE: No scoliosis or deformity SKIN: No rashes CENTRAL NERVOUS SYSTEM: Alert and oriented -3. No focal deficits, tone is normal in all 4 extremities. PSYCHIATRIC: Alert and oriented -3. Appropriate affect. Intact judgment and insight. - Labs CBC & Chem 7: 03/06/17 07:45 03/06/17 07:45 Labs: Abnormal Lab Results - Last 24 Hours (Table) 03/05/17 03/05/17 03/05/17 Range/Units 17:22 20:47 20:48 WBC (3.8-10.6) k/uL Neutrophils # (1.3-7.7) k/uL Potassium (3.5-5.1) mmol/L Chloride (98-107) mmol/L Carbon Dioxide (22-30) mmol/L BUN (7-17) mg/dL Glucose (74-99) mg/dL POC Glucose (mg/dL) 347 H 425 H 406 H (75-99) mg/dL 03/06/17 03/06/17 03/06/17 Range/Units 07:33 07:45 07:45 WBC 13.6 H (3.8-10.6) k/uL Neutrophils # 10.3 H (1.3-7.7) k/uL Potassium 3.4 L (3.5-5.1) mmol/L Chloride 95 L (98-107) mmol/L Carbon Dioxide 31 H (22-30) mmol/L BUN 26 H (7-17) mg/dL Glucose 168 H (74-99) mg/dL POC Glucose (mg/dL) 165 H (75-99) mg/dL 03/06/17 Range/Units 11:04 WBC (3.8-10.6) k/uL Neutrophils # (1.3-7.7) k/uL Potassium (3.5-5.1) mmol/L Chloride (98-107) mmol/L Carbon Dioxide (22-30) mmol/L BUN (7-17) mg/dL Glucose (74-99) mg/dL POC Glucose (mg/dL) 171 H (75-99) mg/dL Assessment and Plan Plan: Assessment: #1. Acute exacerbation of COPD, with bedtime oxygen. Improving #2. Right lower leg draining wound after a mechanical fall a week ago, with yellow-green drainage. X-ray of right tibia/fibula on 02/28/2017 shows subcutaneous edema but no fracture. Wound cultures are negative #3. Bilateral lower leg cellulitis #4. History of coronary artery disease #5. Diabetes mellitus #6. Hypertension, hyperlipidemia, #7. Chronic back pain, spinal stenosis #8. History of CVA/TIA #9. Irritable bowel syndrome #10. Cataracts #11. Nicotine dependence, currently in remission, quit a year ago, carries a 50 -pack-year smoking history Plan: Patient remains stable from pulmonary standpoint, is stable for discharge to the [facility] subacute rehab today, and abiotic spur infectious disease recommendations. Local wound care to the right lower leg wound per ID service. Follow-up in the office Dr. Avila in one week I performed a history & physical examination of the patient and discussed their management with my nurse practitioner, Shawna Stallworth. I reviewed the nurse practitioner's note and agree with the documented findings and plan of care. Lung sounds are diminished, a few rhonchi. The findings and the impression was discussed with the patient. I attest to the documentation by the nurse practitioner. Time with Patient: Less than 30
--- NOTE | 2017-03-06 16:25 | PN ---
PROGRESS NOTE DATE OF SERVICE: 03/06/2017 REASON FOR FOLLOWUP: Right leg wound and cellulitis. INTERVAL HISTORY: The patient is afebrile. She was seen on rounds this morning, breathing comfortably. Denies having any chest pain or cough or any worsening pain in the right leg area. Overall redness has improved. PHYSICAL EXAMINATION: Blood pressure is 128/74 with a pulse of 93, temperature of 98.6. She is 90% on 2 L nasal cannula. General description is an elderly female up in the bed in no distress. RESPIRATORY SYSTEM: Unlabored breathing. Decreased intensity of breath sounds. No wheeze. HEART: S1, S2. Regular rate and rhythm. ABDOMEN: Soft. No tenderness. Right leg swelling and redness have decreased; less slough tissue. LABS: White count 13.6, BUN of 26, creatinine 0.76. DIAGNOSTIC IMPRESSION AND PLAN: Patient with a right leg wound, traumatic, with secondary cellulitis. Culture has been negative for any resistant pathogen. Plan is to finish therapy with oral Keflex, local wound care with Santyl, and follow-up office visit in one week. Continue with supportive care. MMODL / IJN: [id number] /
[2017-03-07] MEDS ORDERED: FAMOTIDINE 20 MG TAB PO SCH (09:00)
== END 2017-03-06 13:25 | DRG 191 ==
LOC: EC 21:28 → 5MS5E 03-01 00:34 → OBSVTOIN 03-01 14:56 → 5MS5E 03-02 13:55
PROVIDERS: ADMIT Internal Medicine; ATTEND Internal Medicine
DX: J44.1 Chronic obstructive pulmonary disease with (acute) exacerbation (principal); L03.115 Cellulitis of right lower limb; E11.65 Type 2 diabetes mellitus with hyperglycemia; L03.116 Cellulitis of left lower limb; I11.9 Hypertensive heart disease without heart failure; T38.0X5A Adverse effect of glucocorticoids and synthetic analogues, initial encounter; E78.5 Hyperlipidemia, unspecified; Z87.891 Personal history of nicotine dependence; F41.1 Generalized anxiety disorder; G89.29 Other chronic pain; H26.9 Unspecified cataract; I25.10 Atherosclerotic heart disease of native coronary artery without angina pectoris; K21.9 Gastro-esophageal reflux disease without esophagitis; K58.0 Irritable bowel syndrome with diarrhea; M48.00 Spinal stenosis, site unspecified; M19.90 Unspecified osteoarthritis, unspecified site; R51 Headache; W01.0XXA Fall on same level from slipping, tripping and stumbling without subsequent striking against object, initial encounter; Y92.009 Unspecified place in unspecified non-institutional (private) residence as the place of occurrence of the external cause; Z79.4 Long term (current) use of insulin; Z79.51 Long term (current) use of inhaled steroids; Z79.899 Other long term (current) drug therapy; Z82.49 Family history of ischemic heart disease and other diseases of the circulatory system; Z86.73 Personal history of transient ischemic attack (TIA), and cerebral infarction without residual deficits; Z88.0 Allergy status to penicillin; Z88.5 Allergy status to narcotic agent; Z90.710 Acquired absence of both cervix and uterus; Z99.81 Dependence on supplemental oxygen; Z88.3 Allergy status to other anti-infective agents
CPT/HCPCS: 36415; 71045; 71046; 74019; 80048; 80053; 80202; 82550; 82553; 83036; 83605; 83735; 83880; 84484; 85025; 85027; 85610; 85730; 87070; 87205; 87502; 93005; 94640; 94760; 96374; 96375; 99285

== ENCOUNTER 2017-04-20 18:16 | Inpatient (IN) | payer MEDICARE, OTHER ==
[2017-04-20] MEDS ORDERED: SODIUM CHLORIDE 0.9% 500 ML IV STA (18:36)
--- NOTE | 2017-04-20 18:57 | XR ---
EXAMINATION TYPE: XR chest 2V DATE OF EXAM: 04/20/2017 COMPARISON: 03/03/2017 HISTORY: Cough TECHNIQUE: Frontal and lateral views of the chest are obtained. FINDINGS: There is no heart failure. Heart appears slightly enlarged. Thoracic aorta is atheromatous . There is no pleural effusion. There is small linear density at the right lung base. There are chest leads. IMPRESSION: New minimal subsegmental atelectasis at the right lung base compared to old exam. No hea rt failure. No pleural effusion.
--- NOTE | 2017-04-20 19:00 | ED ---
General Adult HPI - General Chief complaint: Shortness of Breath Stated complaint: KEMAR Time Seen by Provider: 04/20/17 18:18 Source: patient Mode of arrival: EMS Limitations: no limitations - History of Present Illness Initial comments: This is a 81-year-old female with a history of COPD, diabetes, hypertension who presents emergency department for lightheadedness. The patient was recently discharged from a nursing facility earlier today. She was hospitalized last month for pneumonia. She stated that she got home and felt very lightheaded. She states that she did not have any chest pain or shortness of breath at the time however slowly developed the shortness of breath. She states that she was sitting down trying to eat her meal and felt like she was going to pass out so she called an ambulance. She states that she was on oxygen at the nursing facility however when she got home her oxygen machine was not functioning and no break more to fix it today. She states that she has not been on her oxygen at home. She denies any fevers or chills. No lower chrie swelling. No abdominal pain. No nausea, vomiting, or diarrhea. No loss of appetite. EMS arrived and she was noted to be in SVT with rate in the 200s. She was given 6 of adenosine with improvement in her heart rate. Currently has are in the 120s. Denies history of SVT in the past. No chest pain currently. She states that she has a little bit short of breath but however she gets like that when she is anxious. No other acute complaints. - Related Data Home Medications Medication Instructions Recorded Confirmed Ipratropium/Albuterol Sulfate 3 ml INHALATION RT-QID PRN 06/12/13 04/20/17 [Duoneb 0.5 mg-3 mg/3 ml Soln] Albuterol Inhaler [Ventolin Hfa 1 - 2 puff INHALATION RT-Q6H PRN 05/19/14 Inhaler] Metoprolol Tartrate [Lopressor] 25 mg PO DAILY 05/19/14 04/20/17 Metoprolol Tartrate [Lopressor] 50 mg PO HS 08/04/16 04/20/17 Acetaminophen Tab [Tylenol Tab] 650 mg PO Q12H PRN 04/20/17 04/20/17 Butalb/APAP/Caff 50-325-40Mg 1 tab PO Q4HR PRN 04/20/17 04/20/17 [Fioricet 50-325-40] Cephalexin [Keflex] 500 mg PO TID 04/20/17 04/20/17 Fluticasone/Vilanterol [Breo 1 puff INHALATION RT-DAILY 04/20/17 04/20/17 Ellipta 100-25 Mcg Inhaler] Gabapentin [Neurontin] 100 mg PO TID@0900,1300,2100 04/20/17 04/20/17 Insulin Lispro [humaLOG Kwikpen] 5 unit SQ AC-TID 04/20/17 04/20/17 Insulin Lispro [humaLOG Kwikpen] See Protocol SQ ACHS 04/20/17 04/20/17 LORazepam [Ativan] 0.5 mg PO BID@0900,2100 PRN 04/20/17 04/20/17 Linagliptin [Tradjenta] 5 mg PO DAILY 04/20/17 04/20/17 Loperamide HCl [Imodium A-D] 2 mg PO QID PRN 04/20/17 04/20/17 Torsemide [Demadex] 20 mg PO BID@0600,1200 04/20/17 04/20/17 Previous Rx's Medication Instructions Recorded Famotidine [Pepcid] 20 mg PO BID tab 03/05/17 guaiFENesin SYRUP 100MG/5ML 200 mg PO Q4H PRN cup 03/05/17 [Robitussin] Insuln Asp Prt/Insulin Aspart 52 unit SQ AC-BID vial 03/06/17 [NovoLOG MIX 70-30 VIAL] Allergies Allergy/AdvReac Type Severity Reaction Status Date / Time iodine Allergy Severe Unknown Verified 04/20/17 19:06 blue dye Allergy Swelling Verified 04/20/17 19:06 bumetanide [From Bumex] Allergy Swelling Verified 04/20/17 19:06 diphenhydramine Allergy Unknown Verified 04/20/17 19:06 [From Benadryl] glipizide [From Glucotrol] Allergy Swelling Verified 04/20/17 19:06 metformin Allergy Swelling Verified 04/20/17 19:06 naproxen sodium [From Aleve] Allergy Swelling Verified 04/20/17 19:06 Penicillins Allergy Swelling Verified 04/20/17 19:06 codeine AdvReac Nausea & Verified 04/20/17 19:06 Vomiting furosemide [From Lasix] AdvReac Abdominal Verified 04/20/17 19:06 Pain levofloxacin [From Levaquin] AdvReac Abdominal Verified 04/20/17 19:06 Pain morphine AdvReac Nausea & Verified 04/20/17 19:06 Vomiting nateglinide [From Starlix] AdvReac Unknown Verified 04/20/17 19:06 nitrofurantoin AdvReac Nausea & Verified 04/20/17 19:06 [From Macrobid] Vomiting & Diarrhea nitrofurantoin AdvReac Nausea & Verified 04/20/17 19:06 macrocrystalline Vomiting & [From Macrobid] Diarrhea Sulfa (Sulfonamide AdvReac Abdominal Verified 04/20/17 19:06 Antibiotics) Pain Review of Systems ROS Statement: Those systems with pertinent positive or pertinent negative responses have been documented in the HPI. ROS Other: All systems not noted in ROS Statement are negative. Past Medical History Past Medical History: Asthma, Chest Pain / Angina, COPD, CVA/TIA, Diabetes Mellitus, GERD/Reflux, Hyperlipidemia, Hypertension, Osteoarthritis (OA), Pneumonia, Vascular Disorder Additional Past Medical History / Comment(s): NIDDM type II, neuropathy bilateral feet, chronic back pain, spinal stenosis, PAD, bilateral varicose veins, bronchitis, emphysema, irritable bowel syndrome, polyps, urinary incontinence, UTI, arthritis in legs bilaterally, tinnitus bilaterally, cataracts bilaterally.. History of Any Multi-Drug Resistant Organisms: None Reported Past Surgical History: Appendectomy, Cholecystectomy, Hysterectomy, Orthopedic Surgery Additional Past Surgical History / Comment(s): EGD/colonoscopy, hemorrhoidectomy , bilateral feet bunionectomies and corns removed. Past Anesthesia/Blood Transfusion Reactions: No Reported Reaction Past Psychological History: Anxiety Smoking Status: Former smoker Past Alcohol Use History: None Reported Past Drug Use History: None Reported - Past Family History Father History Unknown: Yes Family Medical History: Unable to Obtain Additional Family Medical History / Comment(s): at 32 from drowning Mother History Unknown: Yes Family Medical History: Myocardial Infarction ([place]) Additional Family Medical History / Comment(s): Mother of a [place] at the age of 68yrs. Brother(s) History Unknown: Yes Family Medical History: Unable to Obtain Additional Family Medical History / Comment(s): Patient has 1 brother that has multiple medical problems. Sister(s) History Unknown: Yes Family Medical History: Hypertension, Osteoarthritis (OA) Daughter(s) History Unknown: Yes Additional Family Medical History / Comment(s): back issues General Exam - General Exam Comments Initial Comments: Constitutional: Awake alert Appears comfortable Head: Normocephalic atraumatic Eyes: no conjunctival injection No scleral icterus EOMI Neck: No JVD Supple Heart: Tachycardia with regular rhythm normal S1-S2 no murmurs Lungs: Tachypnea however clear to auscultation bilaterally No wheezing No rales Abdomen: Soft nondistended nontender Extremities: Non edematous DP pulses intact Radial pulses intact Neuro: A&Ox3 No focal neurologic deficits Psych: Appropriate mood and affect Limitations: no limitations Course Vital Signs 04/20/17 18:19 Temperature 98.7 F Pulse Rate 126 H Respiratory 26 H Rate Blood Pressure 170/73 O2 Sat by Pulse 99 Oximetry EKG Findings - EKG Comments: EKG Findings:: EKG showing sinus tachycardia with a rate of 124. There is no abnormal ST segment changes or T-wave inversions. QTC is 45 and appears prolonged. Other intervals normal. No ectopy. Medical Decision Making - Medical Decision Making This is a 81-year-old female who presents emergency department for lightheadedness. She is found to be in SVT by EMS. She was given adenosine with conversion. She was tachycardic here however this improved after 500 mL of fluids. She is currently in the low 100s. Blood work was reviewed and most unremarkable except for an elevated d-dimer. The patient has a severe IV contrast ALLERGY and thus I cannot get a CTA. I'm going to out her overnight for IV fluids, heparin, and VQ scan in the morning. I spoke with Dr. Berg who accepts the admission and would like an echocardiogram and thyroid studies performed. - Lab Data Result diagrams: 04/20/17 18:40 04/20/17 18:40 Lab Results 04/20/17 04/20/17 04/20/17 Range/Units 18:40 18:40 18:40 WBC 11.3 H (3.8-10.6) k/uL RBC 4.76 (3.80-5.40) m/uL Hgb 13.4 (11.4-16.0) gm/dL Hct 39.0 (34.0-46.0) % MCV 81.9 (80.0-100.0) fL MCH 28.1 (25.0-35.0) pg MCHC 34.3 (31.0-37.0) g/dL RDW 14.4 (11.5-15.5) % Plt Count 246 (150-450) k/uL Neutrophils % 77 % Lymphocytes % 13 % Monocytes % 8 % Eosinophils % 1 % Basophils % 0 % Neutrophils # 8.7 H (1.3-7.7) k/uL Lymphocytes # 1.5 (1.0-4.8) k/uL Monocytes # 0.9 (0-1.0) k/uL Eosinophils # 0.1 (0-0.7) k/uL Basophils # 0.0 (0-0.2) k/uL PT (9.0-12.0) sec INR (<1.2) APTT (22.0-30.0) sec D-Dimer (<0.60) mg/L FEU Sodium 136 L (137-145) mmol/L Potassium 3.2 L (3.5-5.1) mmol/L Chloride 92 L (98-107) mmol/L Carbon Dioxide 29 (22-30) mmol/L Anion Gap 15 mmol/L BUN 25 H (7-17) mg/dL Creatinine 0.91 (0.52-1.04) mg/dL Est GFR (CKD-EPI)AfAm 69 (>60 ml/min/1.73 sqM) Est GFR (CKD-EPI)NonAf 60 (>60 ml/min/1.73 sqM) Glucose 175 H (74-99) mg/dL Calcium 9.9 (8.4-10.2) mg/dL Magnesium 1.9 (1.6-2.3) mg/dL Total Bilirubin 0.4 (0.2-1.3) mg/dL AST 23 (14-36) U/L ALT 20 (9-52) U/L Alkaline Phosphatase 82 (38-126) U/L CK-MB (CK-2) 1.3 (0.0-2.4) ng/mL Troponin I 0.016 (0.000-0.034) ng/mL NT-Pro-B Natriuret Pep pg/mL Total Protein 7.4 (6.3-8.2) g/dL Albumin 4.3 (3.5-5.0) g/dL 04/20/17 04/20/17 Range/Units 18:40 18:40 WBC (3.8-10.6) k/uL RBC (3.80-5.40) m/uL Hgb (11.4-16.0) gm/dL Hct (34.0-46.0) % MCV (80.0-100.0) fL MCH (25.0-35.0) pg MCHC (31.0-37.0) g/dL RDW (11.5-15.5) % Plt Count (150-450) k/uL Neutrophils % % Lymphocytes % % Monocytes % % Eosinophils % % Basophils % % Neutrophils # (1.3-7.7) k/uL Lymphocytes # (1.0-4.8) k/uL Monocytes # (0-1.0) k/uL Eosinophils # (0-0.7) k/uL Basophils # (0-0.2) k/uL PT 9.8 (9.0-12.0) sec INR 1.0 (<1.2) APTT 23.0 (22.0-30.0) sec D-Dimer 1.10 H (<0.60) mg/L FEU Sodium (137-145) mmol/L Potassium (3.5-5.1) mmol/L Chloride (98-107) mmol/L Carbon Dioxide (22-30) mmol/L Anion Gap mmol/L BUN (7-17) mg/dL Creatinine (0.52-1.04) mg/dL Est GFR (CKD-EPI)AfAm (>60 ml/min/1.73 sqM) Est GFR (CKD-EPI)NonAf (>60 ml/min/1.73 sqM) Glucose (74-99) mg/dL Calcium (8.4-10.2) mg/dL Magnesium (1.6-2.3) mg/dL Total Bilirubin (0.2-1.3) mg/dL AST (14-36) U/L ALT (9-52) U/L Alkaline Phosphatase (38-126) U/L CK-MB (CK-2) (0.0-2.4) ng/mL Troponin I (0.000-0.034) ng/mL NT-Pro-B Natriuret Pep 271 pg/mL Total Protein (6.3-8.2) g/dL Albumin (3.5-5.0) g/dL Disposition Clinical Impression: Pre-syncope, SVT (supraventricular tachycardia), Elevated d-dimer Disposition: ADMITTED IP TO THIS HOSP Condition: Stable
[2017-04-20 19:14] LABS: Basophils % (A) 0 %; Eosinophils # (A) 0.1 k/uL (0-0.7); Eosinophils % (A) 1 %; HGB 13.4 gm/dL (11.4-16.0); Lymphocytes # (A) 1.5 k/uL (1.0-4.8); Lymphocytes % (A) 13 %; MCH 28.1 pg (25.0-35.0); MCHC 34.3 g/dL (31.0-37.0); MCV 81.9 fL (80.0-100.0); Mean Platelet Volume 7.7; Monocytes # (A) 0.9 k/uL (0-1.0); Monocytes % (A) 8 %; Neutrophils # (A) 8.7 k/uL (1.3-7.7); Neutrophils % (A) 77 %; Platelet Count 246 k/uL (150-450); RBC 4.76 m/uL (3.80-5.40); RDW 14.4 % (11.5-15.5); WBC 11.3 k/uL (3.8-10.6)
[2017-04-20 19:26] LABS: Albumin 4.3 g/dL (3.5-5.0); Calcium 9.9 mg/dL (8.4-10.2); Magnesium 1.9 mg/dL (1.6-2.3); Potassium 3.2 mmol/L (3.5-5.1); Total Bilirubin 0.4 mg/dL (0.2-1.3); Total Protein 7.4 g/dL (6.3-8.2)
[2017-04-20 19:41] LABS: Prothrombin Time 9.8 sec (9.0-12.0)
[2017-04-20 19:46] LABS: D-Dimer 1.1 mg/L FEU (<0.60)
[2017-04-20] MEDS ORDERED: POTASSIUM CHLORIDE ER 20 MEQ TAB.ER PO STA (19:47)
[2017-04-20 19:55] LABS: Creatine Kinase MB 1.3 ng/mL (0.0-2.4); Troponin I 0.016 ng/mL (0.000-0.034)
[2017-04-20] MEDS ORDERED: NALOXONE 0.4 MG/ML 1 ML VIAL IV PRN (20:50)
[2017-04-20] MEDS: HEPARIN SOD,PORK IN 0.45% NACL 25,000 UNIT in 0.45% NACL 1 500ML.BAG IV SCH (21:21)
[2017-04-20 22:24] VITALS: BMI 36.4
[2017-04-20] MEDS: SODIUM CHLORIDE 0.9% 1,000 ML IV SCH (22:55)
[2017-04-20] MEDS ORDERED: BUTALB/APAP/CAFF 50-325-40MG TAB PO PRN (23:21)
[2017-04-20] MEDS ORDERED: ALBUTEROL INHALER 60 PUFF/8 GM INHALER INHALATION PRN (23:21)
[2017-04-20] MEDS ORDERED: LOPERAMIDE 2 MG CAP PO PRN (23:21)
[2017-04-20] MEDS ORDERED: ACETAMINOPHEN TAB 325 MG TAB PO PRN (23:21)
[2017-04-20] MEDS ORDERED: guaiFENesin SYRUP 100MG/5ML 200 MG/10 ML CUP PO PRN (23:21)
[2017-04-20] MEDS: IBUPROFEN 600 MG TAB PO PRN (23:42)
[2017-04-21] MEDS ORDERED: LORazepam 0.5 MG TAB PO STA (00:05)
[2017-04-21] MEDS: CEPHALEXIN 500 MG CAP PO SCH ×4 (00:16→20:32)
[2017-04-21] MEDS: METOPROLOL TARTRATE 50 MG TAB PO SCH ×3 (00:16→20:32)
[2017-04-21] MEDS: FAMOTIDINE 20 MG TAB PO SCH ×3 (00:16→20:32)
[2017-04-21] MEDS ORDERED: TORSEMIDE 20 MG TAB PO SCH (06:00)
[2017-04-21 06:11] LABS: Glucose,Whole Blood 152 mg/dL (75-99)
[2017-04-21] MEDS: SODIUM CHLORIDE 0.9% 1,000 ML IV SCH ×2 (07:00→18:47)
[2017-04-21] MEDS: INSULN ASP PRT/INSULIN ASPART 100 UNIT/ML 10 ML VIAL SQ SCH ×2 (07:07→17:58)
[2017-04-21] MEDS: INSULIN ASPART 100 UNIT/ML 1 ML 10 ML VIAL SQ SCH ×7 (07:07→21:45)
[2017-04-21] MEDS ORDERED: NON-FORMULARY DRUG (Insulin Lispro [Humalog Kwikpen] 0 UNIT) SQ SCH (07:30)
[2017-04-21] MEDS: IPRATROPIUM-ALBUTEROL 3 ML NEB INHALATION PRN ×2 (07:31→11:39)
[2017-04-21] MEDS: SYMBICORT 80-4.5 MCG INHALER INHALATION SCH ×2 (07:31→19:28)
[2017-04-21] MEDS ORDERED: LORazepam 0.5 MG TAB PO PRN (09:00)
[2017-04-21] MEDS ORDERED: ASPIRIN 325 MG TAB PO SCH (09:00)
[2017-04-21] MEDS: NITROGLYCERIN OINT 1 INCH/GM PACKET TOPICAL SCH ×3 (10:05→17:56)
[2017-04-21] MEDS: TORSEMIDE 20 MG TAB PO SCH ×2 (10:06→12:34)
--- NOTE | 2017-04-21 11:13 | CONS ---
CONSULTATION Kelly Beasley is a 81-year-old female who was recently discharged from a nursing facility after 6 weeks of her stay there. She had a history of pneumonia prior to this. She became extremely dizzy and lightheaded, although she did not complain of any chest discomfort or any palpitations. EMS arrived. They found her to be in supraventricular tachycardia and treated her with IV adenosine. I reviewed the ECG, and it shows a narrow complex supraventricular tachycardia. Currently she is in sinus rhythm. At this time she denies any chest discomfort, but she is slightly short of breath and definitely has rhonchorous breath sounds. Home medications included metoprolol 75 mg a day and she is on oral antibiotics and Demadex 20 mg twice daily. ALLERGIES: Her allergy list is extensive and includes: 1. IODINE. 2. BUMEX. 3. PENICILLIN. 4. LASIX. 5. MORPHINE. 6. SULFA. REVIEW OF SYSTEMS: No fever, chills or rigors. No cough or expectoration. No nausea, vomiting or diarrhea. No hematuria or dysuria. No strokes or seizures. No skin lesions. No musculoskeletal complaints. PAST HISTORY: 1. Asthma. 2. Chest pain. 3. Angina. 4. Diabetes. 5. Dyslipidemia. 6. Hypertension. 7. Type 2 diabetes. 8. Peripheral vascular disease. PAST SURGICAL HISTORY: 1. Appendectomy. 2. Cholecystectomy. 3. Hysterectomy. SOCIAL HISTORY: She is a former smoker. PHYSICAL EXAMINATION: On examination, she is sitting up on the edge of bed, alert and oriented. Her BMI is 36.4. She is mildly kyphotic. VITALS: Stable. Blood pressure 118/53 mmHg, pulse rate in the 90s. Head and neck examination is normal. HEART SOUNDS: Soft and regular. Bilateral rhonchorous breath sounds. Abdomen is soft. Twelve-lead ECG at this time shows sinus rhythm with narrow QRS. No delta waves. IMPRESSION: 1. Presyncope associated with supraventricular tachycardia, adenosine-sensitive. 2. Hypertension. 3. Dyslipidemia. 4. Obesity. 5. Type 2 diabetes. This is drug-refractory supraventricular tachycardia. SUGGEST: Agree with increasing metoprolol to 50 mg twice daily, and I may consider increasing it further to 75 mg twice daily. Heparin may be stopped within 24 hours. Troponins were mildly abnormal. I would start her on statins. Her potassium was also 3.2 and needs to be replaced. BNP is normal. MMODL / IJN: [id number] /
[2017-04-21 11:41] LABS: Glucose,Whole Blood 298 mg/dL (75-99)
[2017-04-21] MEDS: GABAPENTIN 100 MG CAP PO SCH ×3 (12:34→20:32)
[2017-04-21] MEDS: LINAGLIPTIN 5 MG TABLET PO SCH (12:36)
[2017-04-21] MEDS: LORazepam 0.5 MG TAB PO SCH ×2 (12:38→20:32)
[2017-04-21 17:15] LABS: Glucose,Whole Blood 204 mg/dL (75-99)
[2017-04-21] MEDS: HEPARIN SOD,PORK IN 0.45% NACL 25,000 UNIT in 0.45% NACL 1 500ML.BAG IV SCH (17:54)
[2017-04-21 18:52] LABS: Hemoglobin A1C 7.2 % (4.0-6.0)
--- NOTE | 2017-04-21 20:19 | P.HPIM ---
History of Present Illness H&P Date: 04/21/17 Chief Complaint: Palpitations past heartbeat near syncope This is a 81-year-old female patient of Dr. Katelin Reyna with past medical history of CAD, COPD, CVA and TIA, diabetes, hypertension, hyperlipidemia chronic back pain and spinal stenosis. , Admitted from our facility earlier this year, and was discharged to [facility] on the [place] on general are 20 05/01/2017 for which she covered there under the skilled rehabilitation program, patient was discharged home yesterday, patient was having some issues regarding her oxygen up lives at home and since it was broken the repairman was supposed to fix it that day number patient was without any oxygen for a few hours, patient complained of shortness of breath feeling lightheaded and dizzy, patient had significant palpitations and the heart rate was over 200 when the EMS has evaluated her. She also has completed recently and IV antibiotics for her cellulitis, for which she has completed oral cephalexin for 7 days post discharge on March 06,. Patient has chronic dependent edema, patient has home O2 at bedtime only. when seen in emergency room, she was in supraventricular tachycardia prior to ER arrival, EMS has given her one dose of adenosine IV, EKG reviewed and was consistent by narrow complex supraventricular tachycardia acid elevated by cardiology, also comes in with PND symptoms, second troponin was elevated with values of of #2 at 0.368, #1 at 0.016., Patient was started on heparin IV , Dr. blancas on consult Review of Systems Constitutional: Reports as per HPI, Reports chronic pain, Reports malaise, Reports weakness, Denies anorexia, Denies chills, Denies chronic headaches, Denies daytime sleepiness, Denies fatigue, Denies fever, Denies lethargy, Denies night sweats, Denies poor appetite, Denies sweats, Denies weight gain, Denies weight loss Ears, nose, mouth and throat: Reports as per HPI, Denies ant. neck pain, Denies bleeding gums, Denies dental pain, Denies dysphagia, Denies epistaxis, Denies headache, Denies hoarseness, Denies mouth pain, Denies nasal congestion, Denies nasal discharge, Denies neck fullness/pressure, Denies neck lump, Denies nose pain, Denies odynophagia, Denies post-nasal drip, Denies sinus pain, Denies sinus pressure, Denies swelling in mouth, Denies swelling in throat, Denies sore throat, Denies vertigo, Denies voice changes Cardiovascular: Reports as per HPI, Reports decreased exercise tolerance, Reports dyspnea on exertion, Reports irregular heart beat, Reports paroxysmal nocturnal dyspnea, Reports shortness of breath Respiratory: Reports as per HPI, Denies congestion, Denies cough, Denies cough with sputum, Denies dyspnea, Denies excessive sputum, Denies hemoptysis, Denies home oxygen, Denies pain, Denies pain on inspiration, Denies pleurisy, Denies respiratory infections, Denies sleep apnea, Denies snoring, Denies wheezing Gastrointestinal: Reports as per HPI, Reports nausea, Denies abdominal pain, Denies belching, Denies bloating, Denies BRBPR, Denies change in bowel habits, Denies coffee ground emesis, Denies constipation, Denies diarrhea, Denies dyspepsia, Denies early satiety, Denies excessive gas, Denies heartburn, Denies hematemesis, Denies hematochezia, Denies indigestion, Denies jaundice, Denies lactose intolerance, Denies loss of appetite, Denies melena, Denies vomiting Genitourinary: Reports as per HPI, Reports stress incontinence, Reports urge incontinence, Denies abnormal vaginal bleeding, Denies decreased libido, Denies difficulty conceiving, Denies difficulty voiding, Denies dysmenorrhea, Denies dyspareunia, Denies dysuria, Denies flank pain, Denies genital sores, Denies hematuria, Denies hot flashes, Denies incomplete emptying, Denies kidney stones , Denies menorrhagia, Denies mixed incontinence, Denies nocturia, Denies pelvic pain, Denies post void dribbling, Denies , Denies prolapse symptoms, Denies urgency, Denies urinary frequency, Denies vaginal discharge, Denies vaginal dryness, Denies vaginal itching, Denies vaginal odor Menstruation: Reports as per HPI, Reports postmenopausal Musculoskeletal: Reports as per HPI, Reports gait dysfunction, Reports limitation of motion Integumentary: Reports as per HPI, Denies acne, Denies boils, Denies brittle nails, Denies change in hair/nails, Denies color changes, Denies darkening of skin, Denies depigmentation, Denies dryness, Denies foot/leg ulcers, Denies growths, Denies hirsutism, Denies lesions, Denies onychomycosis, Denies pruritus , Denies rash, Denies sores, Denies striae, Denies unusual bruising, Denies wounds Neurological: Reports as per HPI, Denies aphasia, Denies ataxia, Denies balance difficulties, Denies burning pain, Denies change in mentation, Denies change in smell/taste, Denies change in speech, Denies confusion, Denies convulsions, Denies double vision, Denies gait dysfunction, Denies head injury, Denies headaches, Denies hearing difficulties, Denies lack of coordination, Denies loss of vision, Denies memory loss, Denies migraines, Denies motor disturbance, Denies numbness, Denies paralysis, Denies paresthesias, Denies seizures, Denies sensory deficit, Denies spasticity, Denies syncope, Denies tic, Denies tingling , Denies transient paralysis, Denies tremors, Denies vertigo, Denies weakness, Denies visual changes Psychiatric: Reports as per HPI Endocrine: Reports as per HPI, Denies cold intolerance, Denies deepening of the voice, Denies excessive sweating, Denies excessive thirst, Denies fatigue, Denies flushing, Denies heat intolerance, Denies high blood sugars, Denies increase in ring/shoe/hat size, Denies low blood sugars, Denies nocturia, Denies palpitations, Denies polydipsia, Denies polyphagia, Denies polyuria, Denies proptosis, Denies recent glucocorticoid use, Denies thyroid mass, Denies weight change Hematologic/Lymphatic: Reports as per HPI, Denies easy bleeding, Denies easy bruising, Denies lymphadenopathy, Denies lymphedema, Denies thrombophilia Allergic/Immunologic: Reports as per HPI, Denies allergic rhinitis, Denies anaphylaxis, Denies angioedema, Denies gluten intolerance, Denies persistent infections, Denies seasonal allergies, Denies urticaria, Denies wheezing Past Medical History Past Medical History: Asthma, Chest Pain / Angina, COPD, CVA/TIA, Diabetes Mellitus, GERD/Reflux, Hyperlipidemia, Hypertension, Osteoarthritis (OA), Pneumonia, Vascular Disorder Additional Past Medical History / Comment(s): neuropathy bilateral feet, chronic back pain, spinal stenosis, PAD, bilateral varicose veins, bronchitis, emphysema, irritable bowel syndrome, polyps, urinary incontinence, UTI, arthritis in legs bilaterally, tinnitus bilaterally, cataracts bilaterally.. History of Any Multi-Drug Resistant Organisms: None Reported Past Surgical History: Appendectomy, Cholecystectomy, Hysterectomy, Orthopedic Surgery Additional Past Surgical History / Comment(s): EGD/colonoscopy, hemorrhoidectomy , bilateral feet bunionectomies and corns removed. Past Anesthesia/Blood Transfusion Reactions: No Reported Reaction Smoking Status: Former smoker - Past Family History Father History Unknown: Yes Family Medical History: Unable to Obtain Additional Family Medical History / Comment(s): at 32 from drowning Mother History Unknown: Yes Family Medical History: Myocardial Infarction (SC) Additional Family Medical History / Comment(s): Mother of a SC at the age of 68yrs. Brother(s) History Unknown: Yes Family Medical History: Unable to Obtain Additional Family Medical History / Comment(s): Patient has 1 brother that has multiple medical problems. Sister(s) History Unknown: Yes Family Medical History: Hypertension, Osteoarthritis (OA) Daughter(s) History Unknown: Yes Additional Family Medical History / Comment(s): back issues Medications and Allergies Home Medications Medication Instructions Recorded Confirmed Type Ipratropium/Albuterol Sulfate 3 ml INHALATION RT-QID PRN 06/12/13 04/20/17 History [Duoneb 0.5 mg-3 mg/3 ml Soln] Albuterol Inhaler [Ventolin Hfa 1 - 2 puff INHALATION RT-Q6H PRN 05/19/14 History Inhaler] Metoprolol Tartrate [Lopressor] 25 mg PO DAILY 05/19/14 04/20/17 History Metoprolol Tartrate [Lopressor] 50 mg PO HS 08/04/16 04/20/17 History Famotidine [Pepcid] 20 mg PO BID tab 03/05/17 04/20/17 Rx guaiFENesin SYRUP 100MG/5ML 200 mg PO Q4H PRN cup 03/05/17 04/20/17 Rx [Robitussin] Insuln Asp Prt/Insulin Aspart 52 unit SQ AC-BID vial 03/06/17 04/20/17 Rx [NovoLOG MIX 70-30 VIAL] Acetaminophen Tab [Tylenol Tab] 650 mg PO Q12H PRN 04/20/17 04/20/17 History Butalb/APAP/Caff 50-325-40Mg 1 tab PO Q4HR PRN 04/20/17 04/20/17 History [Fioricet 50-325-40] Cephalexin [Keflex] 500 mg PO TID 04/20/17 04/20/17 History Fluticasone/Vilanterol [Breo 1 puff INHALATION RT-DAILY 04/20/17 04/20/17 History Ellipta 100-25 Mcg Inhaler] Gabapentin [Neurontin] 100 mg PO TID@0900,1300,2100 04/20/17 04/20/17 History Insulin Lispro [humaLOG Kwikpen] 5 unit SQ AC-TID 04/20/17 04/20/17 History Insulin Lispro [humaLOG Kwikpen] See Protocol SQ ACHS 04/20/17 04/20/17 History LORazepam [Ativan] 0.5 mg PO BID@0900,2100 PRN 04/20/17 04/20/17 History Linagliptin [Tradjenta] 5 mg PO DAILY 04/20/17 04/20/17 History Loperamide HCl [Imodium A-D] 2 mg PO QID PRN 04/20/17 04/20/17 History Torsemide [Demadex] 20 mg PO BID@0600,1200 04/20/17 04/20/17 History Allergies Allergy/AdvReac Type Severity Reaction Status Date / Time iodine Allergy Severe Unknown Verified 04/20/17 22:00 blue dye Allergy Swelling Verified 04/20/17 22:00 bumetanide [From Bumex] Allergy Swelling Verified 04/20/17 22:00 diphenhydramine Allergy Unknown Verified 04/20/17 22:00 [From Benadryl] glipizide [From Glucotrol] Allergy Swelling Verified 04/20/17 22:00 metformin Allergy Swelling Verified 04/20/17 22:00 naproxen sodium [From Aleve] Allergy Swelling Verified 04/20/17 22:00 Penicillins Allergy Swelling Verified 04/20/17 22:00 codeine AdvReac Nausea & Verified 04/20/17 22:00 Vomiting egg AdvReac Nausea & Verified 04/21/17 04:20 Vomiting furosemide [From Lasix] AdvReac Abdominal Verified 04/20/17 22:00 Pain levofloxacin [From Levaquin] AdvReac Abdominal Verified 04/20/17 22:00 Pain morphine AdvReac Nausea & Verified 04/20/17 22:00 Vomiting nateglinide [From Starlix] AdvReac Unknown Verified 04/20/17 22:00 nitrofurantoin AdvReac Nausea & Verified 04/20/17 22:00 [From Macrobid] Vomiting & Diarrhea nitrofurantoin AdvReac Nausea & Verified 04/20/17 22:00 macrocrystalline Vomiting & [From Macrobid] Diarrhea Sulfa (Sulfonamide AdvReac Abdominal Verified 04/20/17 22:00 Antibiotics) Pain Physical Exam Vitals: Vital Signs Temp Pulse Pulse Resp BP BP Pulse Ox 04/21/17 07:34 90 96 04/21/17 04:00 18 04/21/17 03:06 98.3 F 97 18 118/53 96 04/21/17 00:00 18 04/20/17 22:02 97.7 F 113 H 18 158/68 93 L 04/20/17 18:19 98.7 F 126 H 26 H 170/73 99 Intake and Output 04/20/17 04/21/17 04/21/17 22:59 06:59 14:59 Intake Total 172.255 Balance 172.255 Intake: Intake, IV Titration 172.255 Amount Heparin Sod,Pork in 0.45% 172.255 NaCl 25,000 unit In 0.45 % NaCl 1 500ml.bag @ 18 UNITS/KG/HR 31.51 mls/hr IV .[id number] [facility] Rx#: [id number] Other: # Voids 1 Weight 87.5 kg - Constitutional General appearance: cooperative, no acute distress, obese - EENT Eyes: anicteric sclerae, PERRLA, dentition normal, normal appearance ENT: NA/AT, normal oropharynx - Neck Neck: normal ROM - Respiratory Respiratory: bilateral: diminished, negative: CTA - Cardiovascular Rhythm: irregularly irregular Heart sounds: normal: S1, S2 Abnormal Heart Sounds: systolic murmur leg Peripheral Edema: bilateral: 2+ - Gastrointestinal General gastrointestinal: normal bowel sounds, soft - Integumentary Integumentary: cellulitis, decreased turgor, normal - Neurologic Neurologic: CNII-XII intact - Musculoskeletal Musculoskeletal: gait normal, generalized weakness, strength equal bilaterally - Psychiatric Psychiatric: A&O x's 3, appropriate affect, intact judgment & insight Results CBC & Chem 7: 04/20/17 18:40 04/20/17 18:40 Labs: Abnormal Lab Results - Last 24 Hours (Table) 04/20/17 04/20/17 04/20/17 Range/Units 18:40 18:40 18:40 WBC 11.3 H (3.8-10.6) k/uL Neutrophils # 8.7 H (1.3-7.7) k/uL APTT (22.0-30.0) sec D-Dimer 1.10 H (<0.60) mg/L FEU Sodium 136 L (137-145) mmol/L Potassium 3.2 L (3.5-5.1) mmol/L Chloride 92 L (98-107) mmol/L BUN 25 H (7-17) mg/dL Glucose 175 H (74-99) mg/dL POC Glucose (mg/dL) (75-99) mg/dL Troponin I (0.000-0.034) ng/mL 04/21/17 04/21/17 04/21/17 Range/Units 01:58 01:58 06:09 WBC (3.8-10.6) k/uL Neutrophils # (1.3-7.7) k/uL APTT 38.2 H (22.0-30.0) sec D-Dimer (<0.60) mg/L FEU Sodium (137-145) mmol/L Potassium (3.5-5.1) mmol/L Chloride (98-107) mmol/L BUN (7-17) mg/dL Glucose (74-99) mg/dL POC Glucose (mg/dL) 152 H (75-99) mg/dL Troponin I 0.368 H* (0.000-0.034) ng/mL Laboratory Results WBC 11.3 k/uL (3.8-10.6) H 04/20/17 18:40 RBC 4.76 m/uL (3.80-5.40) 04/20/17 18:40 Hgb 13.4 gm/dL (11.4-16.0) 04/20/17 18:40 Hct 39.0 % (34.0-46.0) 04/20/17 18:40 MCV 81.9 fL (80.0-100.0) 04/20/17 18:40 MCH 28.1 pg (25.0-35.0) 04/20/17 18:40 MCHC 34.3 g/dL (31.0-37.0) 04/20/17 18:40 RDW 14.4 % (11.5-15.5) 04/20/17 18:40 Plt Count 246 k/uL (150-450) 04/20/17 18:40 Neutrophils % 77 % 04/20/17 18:40 Lymphocytes % 13 % 04/20/17 18:40 Monocytes % 8 % 04/20/17 18:40 Eosinophils % 1 % 04/20/17 18:40 Basophils % 0 % 04/20/17 18:40 Neutrophils # 8.7 k/uL (1.3-7.7) H 04/20/17 18:40 Lymphocytes # 1.5 k/uL (1.0-4.8) 04/20/17 18:40 Monocytes # 0.9 k/uL (0-1.0) 04/20/17 18:40 Eosinophils # 0.1 k/uL (0-0.7) 04/20/17 18:40 Basophils # 0.0 k/uL (0-0.2) 04/20/17 18:40 PT 9.8 sec (9.0-12.0) 04/20/17 18:40 INR 1.0 (<1.2) 04/20/17 18:40 APTT 56.7 sec (22.0-30.0) H 04/21/17 08:48 D-Dimer 1.10 mg/L FEU (<0.60) H 04/20/17 18:40 Sodium 136 mmol/L (137-145) L 04/20/17 18:40 Potassium 3.2 mmol/L (3.5-5.1) L 04/20/17 18:40 Chloride 92 mmol/L (98-107) L 04/20/17 18:40 Carbon Dioxide 29 mmol/L (22-30) 04/20/17 18:40 Anion Gap 15 mmol/L 04/20/17 18:40 BUN 25 mg/dL (7-17) H 04/20/17 18:40 Creatinine 0.91 mg/dL (0.52-1.04) 04/20/17 18:40 Est GFR (CKD-EPI)AfAm 69 (>60 ml/min/1.73 sqM) 04/20/17 18:40 Est GFR (CKD-EPI)NonAf 60 (>60 ml/min/1.73 sqM) 04/20/17 18:40 Glucose 175 mg/dL (74-99) H 04/20/17 18:40 POC Glucose (mg/dL) 204 mg/dL (75-99) H 04/21/17 16:30 POC Glu [employer] D[employer] Machine Operator ID Verónica Pagan 04/21/17 16:30 Calcium 9.9 mg/dL (8.4-10.2) 04/20/17 18:40 Magnesium 1.9 mg/dL (1.6-2.3) 04/20/17 18:40 Total Bilirubin 0.4 mg/dL (0.2-1.3) 04/20/17 18:40 AST 23 U/L (14-36) 04/20/17 18:40 ALT 20 U/L (9-52) 04/20/17 18:40 Alkaline Phosphatase 82 U/L (38-126) 04/20/17 18:40 CK-MB (CK-2) 1.3 ng/mL (0.0-2.4) 04/20/17 18:40 Troponin I 0.190 ng/mL (0.000-0.034) H* 04/21/17 08:48 NT-Pro-B Natriuret Pep 271 pg/mL 04/20/17 18:40 Total Protein 7.4 g/dL (6.3-8.2) 04/20/17 18:40 Albumin 4.3 g/dL (3.5-5.0) 04/20/17 18:40 Thrombosis Risk Factor Assmnt - DVT/VTE Prophylaxis DVT/VTE Prophylaxis: Pharmacologic Prophylaxis ordered - Choose All That Apply Each Factor Represents 1 point: Varicose veins Each Risk Factor Represents 3 Points: Age 75 years or older Thrombosis Risk Factor Assessment Total Risk Factor Score: 4 Thrombosis Risk Factor Assessment Level: Moderate Risk Assessment and Plan Plan: 1. Near-syncope Narrow complex supraventricular tachycardia, symptomatic with elevated troponin possibly secondary to demand ischemia, patient was initially placed on heparin,, improved with adenosine, beta roro has been increased to 50 mg twice a day, 2.. Elevated troponin most likely secondary to demand ischemia however pattern of troponin was crescendo decrescendo, currently on metoprolol, aspirin and Lipitor 80 mg daily 3. 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 Singer in the past, patient is on aspirin, patient might need Pletal, however going to increase torsemide to 40 mg twice a day to control edema better, along with leg elevation 4. Nocturnal hypoxemia, patient is on home O2 however she is current device is broken, patient has a repairman already to replace it these needs to be followed on discharge 4. Hypertension, hypertensive cardiovascular disease. Continue Lopressor 50 mg twice a day titrated up from home dose 5. Diabetes mellitus type 2 uncontrolled with hyperglycemia on tradjenta t NovoLog mix 7030, 52 units twice a day, and NovoLog 5 units 3 times a day 6. History of tobacco use and dependence. 7. Osteoarthritis with degenerative disc disease and chronic back pain, stable. 8. Valvular heart disease, stable. 9. GI prophylaxis. Pepcid 20 mg daily. 10. DVT prophylaxis. Lovenox. 11. Diabetic leg ulcer, right lateral fibular region, medical honey to be applied, local wound care, Patient currently is on observation status Discharge plan home with therapies as previous, if stable, will discharge within the next 24-48 hrs.
[2017-04-21] MEDS: ATORVASTATIN 80 MG TAB PO SCH (20:32)
[2017-04-21 21:17] LABS: Glucose,Whole Blood 194 mg/dL (75-99)
[2017-04-22] MEDS: NITROGLYCERIN OINT 1 INCH/GM PACKET TOPICAL SCH ×4 (01:47→16:25)
[2017-04-22] MEDS: SODIUM CHLORIDE 0.9% 1,000 ML IV SCH ×2 (01:48→17:57)
[2017-04-22 05:53] LABS: Glucose,Whole Blood 124 mg/dL (75-99)
[2017-04-22] MEDS: TORSEMIDE 20 MG TAB PO SCH ×2 (05:58→13:03)
[2017-04-22] MEDS: INSULIN ASPART 100 UNIT/ML 1 ML 10 ML VIAL SQ SCH ×7 (05:59→20:53)
[2017-04-22 06:28] LABS: Basophils # (A) 0.1 k/uL (0-0.2); Basophils % (A) 1 %; Eosinophils # (A) 0.1 k/uL (0-0.7); Eosinophils % (A) 2 %; HCT 34.4 % (34.0-46.0); HGB 11.9 gm/dL (11.4-16.0); Lymphocytes # (A) 1.1 k/uL (1.0-4.8); Lymphocytes % (A) 14 %; MCH 28.6 pg (25.0-35.0); MCHC 34.6 g/dL (31.0-37.0); MCV 82.8 fL (80.0-100.0); Mean Platelet Volume 7.3; Monocytes # (A) 0.6 k/uL (0-1.0); Monocytes % (A) 7 %; Neutrophils # (A) 6.2 k/uL (1.3-7.7); Neutrophils % (A) 75 %; Platelet Count 240 k/uL (150-450); Poikilocytosis Slight; RBC 4.16 m/uL (3.80-5.40); RDW 14.4 % (11.5-15.5); WBC 8.4 k/uL (3.8-10.6)
[2017-04-22 06:49] LABS: ALT 22 U/L (9-52); AST 19 U/L (14-36); Albumin 3.7 g/dL (3.5-5.0); Alkaline Phosphatase 63 U/L (38-126); Anion Gap 11 mmol/L; Bilirubin, Delta 0.4 mg/dL (0.0-0.2); Blood Urea Nitrogen 25 mg/dL (7-17); Calcium 9.3 mg/dL (8.4-10.2); Carbon Dioxide 30 mmol/L (22-30); Chloride 100 mmol/L (98-107); Cholesterol 186 mg/dL (<200); Glucose 124 mg/dL (74-99); HDL Cholesterol 41 mg/dL (40-60); LDL Cholesterol,Calculated 108 mg/dL (0-99); Potassium 3.7 mmol/L (3.5-5.1); Sodium 141 mmol/L (137-145); Total Bilirubin 0.4 mg/dL (0.2-1.3); Total Protein 6.5 g/dL (6.3-8.2); Triglycerides 183 mg/dL (<150)
[2017-04-22] MEDS: INSULN ASP PRT/INSULIN ASPART 100 UNIT/ML 10 ML VIAL SQ SCH ×2 (06:55→18:06)
[2017-04-22] MEDS: IPRATROPIUM-ALBUTEROL 3 ML NEB INHALATION PRN ×4 (07:37→19:50)
[2017-04-22] MEDS: SYMBICORT 80-4.5 MCG INHALER INHALATION SCH ×2 (07:38→19:50)
[2017-04-22] MEDS: LINAGLIPTIN 5 MG TABLET PO SCH (08:21)
[2017-04-22] MEDS: FAMOTIDINE 20 MG TAB PO SCH ×2 (08:21→20:53)
[2017-04-22] MEDS: METOPROLOL TARTRATE 50 MG TAB PO SCH ×2 (08:21→13:02)
[2017-04-22] MEDS: GABAPENTIN 100 MG CAP PO SCH ×3 (08:21→20:53)
[2017-04-22] MEDS: ASPIRIN 81 MG PO SCH (08:21)
[2017-04-22] MEDS: CEPHALEXIN 500 MG CAP PO SCH ×3 (08:21→20:53)
[2017-04-22] MEDS: LORazepam 0.5 MG TAB PO SCH ×2 (08:29→20:53)
[2017-04-22] MEDS ORDERED: METOPROLOL TARTRATE 25 MG TAB PO STA (09:28)
[2017-04-22 12:45] LABS: Glucose,Whole Blood 229 mg/dL (75-99)
[2017-04-22 17:01] LABS: Glucose,Whole Blood 229 mg/dL (75-99)
[2017-04-22 20:34] LABS: Glucose,Whole Blood 212 mg/dL (75-99)
[2017-04-22] MEDS: ATORVASTATIN 80 MG TAB PO SCH (20:53)
--- NOTE | 2017-04-22 21:02 | P.PN ---
Subjective Progress Note Date: 04/22/17 This is a 81-year-old female patient of Dr. Katelin Reyna with past medical history of CAD, COPD, CVA and TIA, diabetes, hypertension, hyperlipidemia chronic back pain and spinal stenosis. , Admitted from our facility earlier this year, and was discharged to [facility] [place] on general are 20 05/01/2017 for which she covered there under the skilled rehabilitation program, patient was discharged home yesterday, patient was having some issues regarding her oxygen up lives at home and since it was broken the repairman was supposed to fix it that day number patient was without any oxygen for a few hours, patient complained of shortness of breath feeling lightheaded and dizzy, patient had significant palpitations and the heart rate was over 200 when the EMS has evaluated her. She also has completed recently and IV antibiotics for her cellulitis, for which she has completed oral cephalexin for 7 days post discharge on March 06,. Patient has chronic dependent edema, patient has home O2 at bedtime only. when seen in emergency room, she was in supraventricular tachycardia prior to ER arrival, EMS has given her one dose of adenosine IV, EKG reviewed and was consistent by narrow complex supraventricular tachycardia acid elevated by cardiology, also comes in with PND symptoms, second troponin was elevated with values of of #2 at 0.368, #1 at 0.016., Patient was started on heparin IV , Dr. blancas on consult 04/22, patient has less dyspnea, pt still has minimal tachycardia about 100-110, edema has improved about 50% redness has improved, patient has not ambulated yet as she fears she will be lightheaded/dizzy, metoprolol increased to 75 mg bid, ambulation encouraged i [facility] for daytime hypoxemia eval . therapeis expected on discharge, has one already set up from [facility]. home in am if better. EHR updated on admission status, placed on full admit today instead of obs Objective - Vital Signs Vital signs: Vital Signs Temp 98.0 F 04/22/17 04:00 Pulse 96 04/22/17 07:52 Resp 18 04/22/17 04:00 BP 130/64 04/22/17 04:00 Pulse Ox 96 04/22/17 07:41 Intake & Output 04/21/17 04/22/17 04/22/17 17:59 06:59 18:59 Output Total Balance Weight Output: Urine Other: # Voids # Bowel Movements - Constitutional General appearance: Present: cooperative, no acute distress - EENT Eyes: Present: anicteric sclerae, EOMI, PERRLA, dentition normal ENT: Present: NA/AT, normal oropharynx - Neck Neck: Present: normal ROM. Absent: lymphadenopathy, other, rigidity, stridor, thyromegaly - Respiratory Respiratory: bilateral: CTA, diminished - Cardiovascular Rhythm: regular Heart sounds: normal: S1 Abnormal Heart Sounds: Present: systolic murmur, diastolic murmur - Gastrointestinal General gastrointestinal: Present: normal bowel sounds, soft - Integumentary Integumentary: Present: normal - Neurologic Neurologic: Present: CNII-XII intact - Musculoskeletal Musculoskeletal: Present: strength equal bilaterally - Psychiatric Psychiatric: Present: A&O x's 3 - Labs CBC & Chem 7: 04/22/17 06:00 04/22/17 06:00 Labs: Abnormal Lab Results - Last 24 Hours (Table) 04/20/17 04/21/17 04/21/17 Range/Units 18:40 08:48 08:48 APTT 56.7 H (22.0-30.0) sec BUN (7-17) mg/dL Glucose (74-99) mg/dL POC Glucose (mg/dL) (75-99) mg/dL Hemoglobin A1c 7.2 H (4.0-6.0) % Delta Bilirubin (0.0-0.2) mg/dL Troponin I 0.190 H* (0.000-0.034) ng/mL Triglycerides (<150) mg/dL LDL Cholesterol, Calc (0-99) mg/dL 04/21/17 04/21/17 04/21/17 Range/Units 11:40 16:30 21:16 APTT (22.0-30.0) sec BUN (7-17) mg/dL Glucose (74-99) mg/dL POC Glucose (mg/dL) 298 H 204 H 194 H (75-99) mg/dL Hemoglobin A1c (4.0-6.0) % Delta Bilirubin (0.0-0.2) mg/dL Troponin I (0.000-0.034) ng/mL Triglycerides (<150) mg/dL LDL Cholesterol, Calc (0-99) mg/dL 04/22/17 04/22/17 Range/Units 05:51 06:00 APTT (22.0-30.0) sec BUN 25 H (7-17) mg/dL Glucose 124 H (74-99) mg/dL POC Glucose (mg/dL) 124 H (75-99) mg/dL Hemoglobin A1c (4.0-6.0) % Delta Bilirubin 0.4 H (0.0-0.2) mg/dL Troponin I (0.000-0.034) ng/mL Triglycerides 183 H (<150) mg/dL LDL Cholesterol, Calc 108 H (0-99) mg/dL Laboratory Results - last 24 hr 04/20/17 04/21/17 04/22/17 18:40 21:16 05:51 WBC RBC Hgb Hct MCV MCH MCHC RDW Plt Count Neutrophils % Lymphocytes % Monocytes % Eosinophils % Basophils % Neutrophils # Lymphocytes # Monocytes # Eosinophils # Basophils # Poikilocytosis Sodium Potassium Chloride Carbon Dioxide Anion Gap BUN Creatinine Est GFR (CKD-EPI)AfAm Est GFR (CKD-EPI)NonAf Glucose POC Glucose (mg/dL) 194 H 124 H POC Glu Senior Benefits Manager ID Perry Benson [address] Glu mg/dL 160 Hemoglobin A1c 7.2 H Calcium Total Bilirubin Conjugated Bilirubin Unconjugated Bilirubin Delta Bilirubin AST ALT Alkaline Phosphatase Total Protein Albumin Triglycerides Cholesterol LDL Cholesterol, Calc HDL Cholesterol 04/22/17 04/22/17 04/22/17 06:00 06:00 12:19 WBC 8.4 RBC 4.16 Hgb 11.9 Hct 34.4 MCV 82.8 MCH 28.6 MCHC 34.6 RDW 14.4 Plt Count 240 Neutrophils % 75 Lymphocytes % 14 Monocytes % 7 Eosinophils % 2 Basophils % 1 Neutrophils # 6.2 Lymphocytes # 1.1 Monocytes # 0.6 Eosinophils # 0.1 Basophils # 0.1 Poikilocytosis Slight Sodium 141 Potassium 3.7 Chloride 100 Carbon Dioxide 30 Anion Gap 11 BUN 25 H Creatinine 0.70 Est GFR (CKD-EPI)AfAm >90 Est GFR (CKD-EPI)NonAf 83 Glucose 124 H POC Glucose (mg/dL) 229 H POC Glu Senior Benefits Manager ID Verónica [address] Glu mg/dL Hemoglobin A1c Calcium 9.3 Total Bilirubin 0.4 Conjugated Bilirubin 0.0 Unconjugated Bilirubin 0.0 Delta Bilirubin 0.4 H AST 19 ALT 22 Alkaline Phosphatase 63 Total Protein 6.5 Albumin 3.7 Triglycerides 183 H Cholesterol 186 LDL Cholesterol, Calc 108 H HDL Cholesterol 41 04/22/17 04/22/17 17:00 20:32 WBC RBC Hgb Hct MCV MCH MCHC RDW Plt Count Neutrophils % Lymphocytes % Monocytes % Eosinophils % Basophils % Neutrophils # Lymphocytes # Monocytes # Eosinophils # Basophils # Poikilocytosis Sodium Potassium Chloride Carbon Dioxide Anion Gap BUN Creatinine Est GFR (CKD-EPI)AfAm Est GFR (CKD-EPI)NonAf Glucose POC Glucose (mg/dL) 229 H 212 H POC Glu Senior Benefits Manager CHUCK JenniferCrLeighannjose Saenz [address] Glu mg/dL Hemoglobin A1c Calcium Total Bilirubin Conjugated Bilirubin Unconjugated Bilirubin Delta Bilirubin AST ALT Alkaline Phosphatase Total Protein Albumin Triglycerides Cholesterol LDL Cholesterol, Calc HDL Cholesterol Assessment and Plan Plan: 1. Near-syncope Narrow complex supraventricular tachycardia, symptomatic with elevated troponin possibly secondary to demand ischemia, patient was initially placed on heparin,, improved with adenosine, beta roro has been increased to 75 mg twice a day, 2.. Elevated troponin most likely secondary to demand ischemia however pattern of troponin was crescendo decrescendo, currently on metoprolol, aspirin and Lipitor 80 mg daily 3. Recurrent edema and redness, cellulitis can't rule out diabeticorum necrobiosis lipoidica, pretibial diabetic ulcer on the fibular component right leg of the bilateral lower , was seen by Dr. Singer in the past, patient is on aspirin, patient might need Pletal, however going to increase torsemide to 40 mg twice a day to control edema better, along with leg elevation 4. Nocturnal hypoxemia, patient is on home O2 however she is current device is broken, patient has a repairman already to replace it these needs to be followed on discharge 4. Hypertension, hypertensive cardiovascular disease. Continue Lopressor 50 mg twice a day titrated up from home dose 5. Diabetes mellitus type 2 uncontrolled with hyperglycemia on tradjenta t NovoLog mix 70/30, 52 units twice a day, and NovoLog 5 units 3 times a day 6. History of tobacco use and dependence. 7. Osteoarthritis with degenerative disc disease and chronic back pain, stable. 8. Valvular heart disease, stable. 9. GI prophylaxis. Pepcid 20 mg daily. 10. DVT prophylaxis. Lovenox. 11. Diabetic leg ulcer, right lateral fibular region, medical honey to be applied, local wound care, Patient currently is placed as in patient as of today 04/22, discussed with EHR insurance Discharge plan home with therapies as previous, if stable, will discharge within the next 24-48 hrs.
[2017-04-23] MEDS: NITROGLYCERIN OINT 1 INCH/GM PACKET TOPICAL SCH ×5 (00:01→20:39)
[2017-04-23 05:59] LABS: Glucose,Whole Blood 164 mg/dL (75-99)
[2017-04-23] MEDS: TORSEMIDE 20 MG TAB PO SCH ×2 (06:01→12:28)
[2017-04-23] MEDS: INSULIN ASPART 100 UNIT/ML 1 ML 10 ML VIAL SQ SCH ×7 (06:56→21:26)
[2017-04-23] MEDS: INSULN ASP PRT/INSULIN ASPART 100 UNIT/ML 10 ML VIAL SQ SCH ×2 (06:57→17:33)
[2017-04-23 06:58] LABS: Basophils # (A) 0.1 k/uL (0-0.2); Basophils % (A) 1 %; Eosinophils # (A) 0.2 k/uL (0-0.7); Eosinophils % (A) 2 %; HCT 36.1 % (34.0-46.0); HGB 12.2 gm/dL (11.4-16.0); Lymphocytes # (A) 1.1 k/uL (1.0-4.8); Lymphocytes % (A) 14 %; MCH 28.1 pg (25.0-35.0); MCHC 33.8 g/dL (31.0-37.0); Mean Platelet Volume 7.5; Monocytes # (A) 0.5 k/uL (0-1.0); Monocytes % (A) 6 %; Neutrophils # (A) 6.2 k/uL (1.3-7.7); Neutrophils % (A) 75 %; Platelet Count 226 k/uL (150-450); Poikilocytosis Slight; RBC 4.35 m/uL (3.80-5.40); RDW 14.5 % (11.5-15.5); WBC 8.3 k/uL (3.8-10.6)
[2017-04-23 07:03] LABS: Calcium 9.8 mg/dL (8.4-10.2); Potassium 4.2 mmol/L (3.5-5.1)
[2017-04-23] MEDS: IPRATROPIUM-ALBUTEROL 3 ML NEB INHALATION PRN ×2 (08:40→19:27)
[2017-04-23] MEDS: SYMBICORT 80-4.5 MCG INHALER INHALATION SCH ×2 (08:40→19:27)
[2017-04-23] MEDS: METOPROLOL TARTRATE 50 MG TAB PO SCH ×2 (09:03→20:42)
[2017-04-23] MEDS: GABAPENTIN 100 MG CAP PO SCH ×3 (09:03→20:38)
[2017-04-23] MEDS: ASPIRIN 81 MG PO SCH (09:03)
[2017-04-23] MEDS: FAMOTIDINE 20 MG TAB PO SCH (09:04)
[2017-04-23] MEDS: LINAGLIPTIN 5 MG TABLET PO SCH (09:04)
[2017-04-23] MEDS: CEPHALEXIN 500 MG CAP PO SCH ×3 (09:04→20:39)
[2017-04-23] MEDS: IBUPROFEN 600 MG TAB PO PRN (09:08)
[2017-04-23] MEDS: LORazepam 0.5 MG TAB PO SCH ×2 (09:08→20:42)
--- NOTE | 2017-04-23 11:10 | P.PN ---
Subjective Patient is doing well. She is lying comfortably in bed. She does have rhonchorous breath sounds but she appears comfortable. She has not had any further SVT. She was admitted with SVT most likely AV asia reentry which responded to adenosine On examination she is afebrile 97% degrees Fahrenheit pulse rate is in the 80s, blood pressure 124/85 mmHg Breath sounds are reduced bilaterally bilateral rhonchorous breath sounds Heart sounds are normal Abdomen soft nontender Extended is warm edema Impression Sotalol ventricular tachycardia, symptomatic Normal TSH History of CAD History of CVA History of diabetes adult onset I pretension Dyslipidemia Suggest Continue metoprolol at 5 mg twice daily. She has not had a recurrence over 48 hours. Continue statins aspirin and Demadex Objective - Vital Signs Vital signs: Vital Signs Temp 97.7 F 04/23/17 08:00 Pulse 88 04/23/17 08:54 Resp 16 04/23/17 08:00 BP 124/85 04/23/17 08:00 Pulse Ox 96 04/23/17 08:00 Intake & Output 04/22/17 04/23/17 04/23/17 18:59 06:59 18:59 Intake Total 240 240 240 Output Total 250 Balance 240 -10 240 Weight 88.1 kg Intake: Oral 240 240 240 Output: Urine 250 Other: # Voids 2 2 # Bowel Movements 2 - Labs CBC & Chem 7: 04/23/17 06:24 04/23/17 06:24 Labs: Abnormal Lab Results - Last 24 Hours (Table) 04/22/17 04/22/17 04/22/17 Range/Units 12:19 17:00 20:32 Chloride (98-107) mmol/L Carbon Dioxide (22-30) mmol/L BUN (7-17) mg/dL Glucose (74-99) mg/dL POC Glucose (mg/dL) 229 H 229 H 212 H (75-99) mg/dL 04/23/17 04/23/17 Range/Units 05:56 06:24 Chloride 95 L (98-107) mmol/L Carbon Dioxide 36 H (22-30) mmol/L BUN 21 H (7-17) mg/dL Glucose 176 H (74-99) mg/dL POC Glucose (mg/dL) 164 H (75-99) mg/dL
[2017-04-23 11:43] LABS: Glucose,Whole Blood 241 mg/dL (75-99)
--- NOTE | 2017-04-23 13:14 | ECHOF ---
Referral Reason:Presyncope MEASUREMENTS -------- HEIGHT: 154.9 cm WEIGHT: 87.1 kg BP: 118/53 RVIDd: 1.8 cm (< 3.3) IVSd: 1.4 cm (0.6 - 1.1) LVIDd: 3.3 cm (3.9 - 5.3) LVPWd: 1.7 cm (0.6 - 1.1) IVSs: 1.5 cm LVIDs: 1.8 cm LVPWs: 1.9 cm Ao Diam: 2.8 cm (2.0 - 3.7) AV Cusp: 1.6 cm (1.5 - 2.6) LA Diam: 2.7 cm (2.7 - 3.8) MV EXCURSION: 7.636 mm (> 18.000) MV EF SLOPE: 50 mm/s (70 - 150) EPSS: 0.7 cm MV E Suraj: 0.36 m/s MV DecT: 107 ms MV A Suraj: 1.04 m/s MV E/A Ratio: 0.34 RAP: 5.00 mmHg RVSP: 12.80 mmHg FINDINGS -------- Sinus rhythm. This was a technically difficult study with suboptimal views. The left ventricular size is normal. There is moderate concentric left ventricular hypertrophy. O verall left ventricular systolic function is normal with, an EF between 60 - 65 %. The right ventricle is normal in size. The left atrium is normal in size. The right atrium was not well visualized. The aortic valve is trileaflet, and appears structurally normal. No aortic stenosis or regurgitation. Mild mitral regurgitation is present. Mild tricuspid regurgitation present. The right ventricular systolic pressure, as measured by Doppl er, is 12.80mmHg. Pulmonic valve appears structurally normal. The pericardium is normal. CONCLUSIONS -------- 1. Sinus rhythm. 2. This was a technically difficult study with suboptimal views. 3. The left ventricular size is normal. 4. There is moderate concentric left ventricular hypertrophy. 5. Overall left ventricular systolic function is normal with, an EF between 60 - 65 %. 6. The right ventricle is normal in size. 7. The left atrium is normal in size. 8. The right atrium was not well visualized. 9. Lumason used 10. The aortic valve is trileaflet, and appears structurally normal. No aortic stenosis or regurgitat ion. 11. Mild mitral regurgitation is present. 12. Mild tricuspid regurgitation present. 13. The right ventricular systolic pressure, as measured by Doppler, is 12.80mmHg. 14. Pulmonic valve appears structurally normal. 15. The pericardium is normal. MANAGER TECHNICAL SALES: Peyton Alvarez RDCS
--- NOTE | 2017-04-23 14:35 | P.PN ---
Subjective This is a 81-year-old female patient of Dr. Katelin Reyna with past medical history of CAD, COPD, CVA and TIA, diabetes, hypertension, hyperlipidemia chronic back pain and spinal stenosis. , Admitted from our facility earlier this year, and was discharged to [facility] [place] on general are 05/01/2017 for which she covered there under the skilled rehabilitation program, patient was discharged home yesterday, patient was having some issues regarding her oxygen up lives at home and since it was broken the repairman was supposed to fix it that day number patient was without any oxygen for a few hours, patient complained of shortness of breath feeling lightheaded and dizzy, patient had significant palpitations and the heart rate was over 200 when the EMS has evaluated her. She also has completed recently and IV antibiotics for her cellulitis, for which she has completed oral cephalexin for 7 days post discharge on March 06,. Patient has chronic dependent edema, patient has home O2 at bedtime only. when seen in emergency room, she was in supraventricular tachycardia prior to ER arrival, EMS has given her one dose of adenosine IV, EKG reviewed and was consistent by narrow complex supraventricular tachycardia acid elevated by cardiology, also comes in with PND symptoms, second troponin was elevated with values of of #2 at 0.368, #1 at 0.016., Patient was started on heparin IV , Dr. blancas on consult 04/23 patient was evaluated today, she denies any chest pain or increased shortness breath. Denies any worsening palpitations. Cardiology on consult recommends to increasing metoprolol to 75 mg twice a day, continue aspirin, statin, and Demadex. Echocardiogram reveals ejection fraction between 66-65%. She does have some improvement with her lower extremity edema, clotrimazole/ betamethasone ordered. Objective - Vital Signs Vital signs: Vital Signs Temp 97.7 F 04/23/17 08:00 Pulse 77 04/23/17 12:00 Resp 16 04/23/17 12:00 BP 129/58 04/23/17 12:00 Pulse Ox 98 04/23/17 12:00 Intake & Output 04/22/17 04/23/17 04/23/17 18:59 06:59 18:59 Intake Total 240 240 600 Output Total 250 Balance 240 -10 600 Weight 88.1 kg Intake: Oral 240 240 600 Output: Urine 250 Other: # Voids 2 2 2 # Bowel Movements 2 1 - Exam - Constitutional General appearance: cooperative, no acute distress, obese - EENT Eyes: anicteric sclerae, PERRLA, dentition normal, normal appearance ENT: NA/AT, normal oropharynx - Neck Neck: normal ROM - Respiratory Respiratory: bilateral: diminished, negative: CTA - Cardiovascular Rhythm: irregularly irregular Heart sounds: normal: S1, S2 Abnormal Heart Sounds: systolic murmur leg Peripheral Edema: bilateral: 2+ - Gastrointestinal General gastrointestinal: normal bowel sounds, soft - Integumentary Integumentary: cellulitis, decreased turgor, normal - Neurologic Neurologic: CNII-XII intact - Musculoskeletal Musculoskeletal: gait normal, generalized weakness, strength equal bilaterally - Psychiatric Psychiatric: A&O x's 3, appropriate affect, intact judgment & insight - Labs CBC & Chem 7: 04/23/17 06:24 04/23/17 06:24 Labs: Abnormal Lab Results - Last 24 Hours (Table) 04/22/17 04/22/17 04/23/17 Range/Units 17:00 20:32 05:56 Chloride (98-107) mmol/L Carbon Dioxide (22-30) mmol/L BUN (7-17) mg/dL Glucose (74-99) mg/dL POC Glucose (mg/dL) 229 H 212 H 164 H (75-99) mg/dL 04/23/17 04/23/17 Range/Units 06:24 11:20 Chloride 95 L (98-107) mmol/L Carbon Dioxide 36 H (22-30) mmol/L BUN 21 H (7-17) mg/dL Glucose 176 H (74-99) mg/dL POC Glucose (mg/dL) 241 H (75-99) mg/dL Assessment and Plan Plan: 1. Near-syncope Narrow complex supraventricular tachycardia, symptomatic with elevated troponin possibly secondary to demand ischemia, patient was initially placed on heparin, improved with adenosine, beta roro has been increased to 75 mg twice a day, 2. Elevated troponin most likely secondary to demand ischemia however pattern of troponin was crescendo decrescendo, currently on metoprolol, aspirin and Lipitor 80 mg daily 3. 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 Singer in the past, patient is on aspirin, patient might need Pletal, however going to increase torsemide to 40 mg twice a day to control edema better, along with leg elevation, bethamethasone/ clotrimazole added 4. Nocturnal hypoxemia, patient is on home O2 however she is current device is broken, patient has a repairman already to replace it these needs to be followed on discharge 4. Hypertension, hypertensive cardiovascular disease. Continue Lopressor 50 mg twice a day titrated up from home dose 5. Diabetes mellitus type 2 uncontrolled with hyperglycemia on tradjenta, NovoLog mix 7030, 52 units twice a day, and NovoLog 5 units 3 times a day 6. History of tobacco use and dependence. 7. Osteoarthritis with degenerative disc disease and chronic back pain, stable. 8. Valvular heart disease, stable. 9. GI prophylaxis. Pepcid 20 mg daily. 10. DVT prophylaxis. Lovenox. 11. Diabetic leg ulcer, right lateral fibular region, medical honey to be applied, local wound care Patient currently is on observation status Discharge plan home with therapies as previous, if stable, will discharge within the next 24-48 hrs. The above impression and plan of care have been discussed and directed by signing physician. Mitra Evangelista nurse practitioner acting as scribe for signing physician.
[2017-04-23 16:59] LABS: Glucose,Whole Blood 253 mg/dL (75-99)
[2017-04-23] MEDS: SODIUM CHLORIDE 0.9% 1,000 ML IV SCH ×3 (20:17→20:18)
[2017-04-23] MEDS: CLOTRIMAZOLE/BETAMETH 1-0.05% CREAM 45 GM TUBE TOPICAL SCH (20:44)
[2017-04-23 21:25] LABS: Glucose,Whole Blood 75 mg/dL (75-99)
[2017-04-23 22:19] LABS: Glucose,Whole Blood 105 mg/dL (75-99)
[2017-04-24] MEDS: NITROGLYCERIN OINT 1 INCH/GM PACKET TOPICAL SCH ×2 (03:03→11:57)
[2017-04-24] MEDS: SODIUM CHLORIDE 0.9% 1,000 ML IV SCH (04:00)
[2017-04-24 05:21] VITALS: RESP 16; TEMP 97
[2017-04-24 06:15] LABS: Glucose,Whole Blood 122 mg/dL (75-99)
[2017-04-24] MEDS: TORSEMIDE 20 MG TAB PO SCH (06:29)
[2017-04-24] MEDS: INSULN ASP PRT/INSULIN ASPART 100 UNIT/ML 10 ML VIAL SQ SCH (06:29)
[2017-04-24] MEDS: INSULIN ASPART 100 UNIT/ML 1 ML 10 ML VIAL SQ SCH ×2 (06:29)
[2017-04-24] MEDS: SYMBICORT 80-4.5 MCG INHALER INHALATION SCH (07:17)
[2017-04-24 07:23] LABS: Calcium 9.7 mg/dL (8.4-10.2)
[2017-04-24 07:24] LABS: Basophils # (A) 0.1 k/uL (0-0.2); Basophils % (A) 1 %; Eosinophils # (A) 0.2 k/uL (0-0.7); Eosinophils % (A) 2 %; HCT 35.9 % (34.0-46.0); HGB 12.4 gm/dL (11.4-16.0); Lymphocytes # (A) 1.2 k/uL (1.0-4.8); Lymphocytes % (A) 14 %; MCH 28.6 pg (25.0-35.0); MCHC 34.4 g/dL (31.0-37.0); MCV 83.1 fL (80.0-100.0); Mean Platelet Volume 7.5; Monocytes # (A) 0.6 k/uL (0-1.0); Monocytes % (A) 7 %; Neutrophils # (A) 6.7 k/uL (1.3-7.7); Neutrophils % (A) 75 %; Platelet Count 244 k/uL (150-450); Poikilocytosis Slight; RBC 4.32 m/uL (3.80-5.40); RDW 14.5 % (11.5-15.5); WBC 8.9 k/uL (3.8-10.6)
[2017-04-24] MEDS: CEPHALEXIN 500 MG CAP PO SCH (08:35)
[2017-04-24] MEDS: CLOTRIMAZOLE/BETAMETH 1-0.05% CREAM 45 GM TUBE TOPICAL SCH (08:35)
[2017-04-24] MEDS: GABAPENTIN 100 MG CAP PO SCH (08:35)
[2017-04-24] MEDS: METOPROLOL TARTRATE 50 MG TAB PO SCH (08:35)
[2017-04-24] MEDS: ASPIRIN 81 MG PO SCH (08:36)
[2017-04-24] MEDS: LINAGLIPTIN 5 MG TABLET PO SCH (08:36)
[2017-04-24] MEDS: LORazepam 0.5 MG TAB PO SCH (08:39)
[2017-04-24] MEDS: IBUPROFEN 600 MG TAB PO PRN (08:39)
[2017-04-24 08:46] VITALS: BP 140/64; PULSE 102
[2017-04-24] MEDS ORDERED: FAMOTIDINE 20 MG TAB PO SCH (09:00)
[2017-04-24 11:30] LABS: Glucose,Whole Blood 212 mg/dL (75-99)
--- NOTE | 2017-04-24 11:49 | P.DS ---
Providers Date of admission: 04/23/17 08:55 Expected date of discharge: 04/24/17 Attending physician: Lisa Berg Consults: 04/20/17 20:52 Consult Physician Routine Consulting Provider: [facility] Consult Reason/Comments: Pre-syncope Do you want consulting provider notified?: Yes Primary care physician: Axel Thomason [facility] Course: This is a 81-year-old female patient of Dr. Katelin Reyna with past medical history of CAD, COPD, CVA and TIA, diabetes, hypertension, hyperlipidemia chronic back pain and spinal stenosis. , Admitted from our facility earlier this year, and was discharged to [facility] on the [place] on general are 20 05/01/2017 for which she covered there under the skilled rehabilitation program, patient was discharged home yesterday, patient was having some issues regarding her oxygen up lives at home and since it was broken the repairman was supposed to fix it that day number patient was without any oxygen for a few hours, patient complained of shortness of breath feeling lightheaded and dizzy, patient had significant palpitations and the heart rate was over 200 when the EMS has evaluated her. She also has completed recently and IV antibiotics for her cellulitis, for which she has completed oral cephalexin for 7 days post discharge on March 06,. Patient has chronic dependent edema, patient has home O2 at bedtime only. when seen in emergency room, she was in supraventricular tachycardia prior to ER arrival, EMS has given her one dose of adenosine IV, EKG reviewed and was consistent by narrow complex supraventricular tachycardia acid elevated by cardiology, also comes in with PND symptoms, second troponin was elevated with values of of #2 at 0.368, #1 at 0.016., Patient was started on heparin IV , Dr. blancas on consult 04/23 patient was evaluated today, she denies any chest pain or increased shortness breath. Denies any worsening palpitations. Cardiology on consult recommends to increasing metoprolol to 75 mg twice a day, continue aspirin, statin, and Demadex. Echocardiogram reveals ejection fraction between 66-65%. She does have some improvement with her lower extremity edema, clotrimazole/ betamethasone ordered. 04/23 patient has had no further episodes of SVT. She'll continue on metoprolol 75 mg twice a day, statins, aspirin, and Demadex. Bilateral lower extremities edema and erythema have improved. She'll continue Keflex. Patient will be discharged home, patient has previous home care for [facility] already in place. She is on home o2, which is also already in place. Discharge diagnoses 1. Near-syncope Narrow complex supraventricular tachycardia 2. Elevated troponin 3. Recurrent edema and redness, cellulitis 4. Nocturnal hypoxemia 4. Hypertension 5. Diabetes mellitus type 2 uncontrolled with hyperglycemia 6. History of tobacco use and dependence. 7. Osteoarthritis with degenerative disc disease and chronic back pain 8. Valvular heart disease 9. Diabetic leg ulcer, right lateral fibular region The above impression and plan of care have been discussed and directed by signing physician. Mitra Evangelista nurse practitioner acting as scribe for signing physician. Patient Condition at Discharge: Good Plan - Discharge Summary New Discharge Prescriptions: New Aspirin 81 mg PO DAILY chew Atorvastatin [Lipitor] 80 mg PO HS #30 tab Clotrimazole/Betameth Cream [Lotrisone] 1 applic TOPICAL BID #30 applic Metoprolol Tartrate [Lopressor] 75 mg PO BID #60 tab Torsemide [Demadex] 40 mg PO BID@0600,1200 #60 tab Continue Ipratropium/Albuterol Sulfate [Duoneb 0.5 mg-3 mg/3 ml Soln] 3 ml INHALATION RT-QID PRN PRN Reason: Shortness Of Breath Albuterol Inhaler [Ventolin Hfa Inhaler] 1 - 2 puff INHALATION RT-Q6H PRN PRN Reason: Shortness Of Breath Famotidine [Pepcid] 20 mg PO BID tab guaiFENesin SYRUP 100MG/5ML [Robitussin] 200 mg PO Q4H PRN cup PRN Reason: Cough Insuln Asp Prt/Insulin Aspart [NovoLOG MIX 70-30 VIAL] 52 unit SQ AC-BID vial Linagliptin [Tradjenta] 5 mg PO DAILY LORazepam [Ativan] 0.5 mg PO BID@0900,2100 PRN PRN Reason: Anxiety Insulin Lispro [humaLOG Kwikpen] 5 unit SQ AC-TID Insulin Lispro [humaLOG Kwikpen] See Protocol SQ ACHS Loperamide HCl [Imodium A-D] 2 mg PO QID PRN PRN Reason: Diarrhea Gabapentin [Neurontin] 100 mg PO TID@0900,1300,2100 Acetaminophen Tab [Tylenol] 650 mg PO Q12H PRN PRN Reason: Pain Fluticasone/Vilanterol [Breo Ellipta 100-25 Mcg Inhaler] 1 puff INHALATION RT -DAILY Cephalexin [Keflex] 500 mg PO TID #21 cap Discontinued Metoprolol Tartrate [Lopressor] 25 mg PO DAILY Metoprolol Tartrate [Lopressor] 50 mg PO HS Torsemide [Demadex] 20 mg PO BID@0600,1200 Butalb/APAP/Caff 50-325-40Mg [Fioricet 50-325-40] 1 tab PO Q4HR PRN PRN Reason: Headache Discharge Medication List Ipratropium/Albuterol Sulfate [Duoneb 0.5 mg-3 mg/3 ml Soln] 3 ml INHALATION RT- QID PRN 06/12/13 [History] Albuterol Inhaler [Ventolin Hfa Inhaler] 1 - 2 puff INHALATION RT-Q6H PRN [History] Famotidine [Pepcid] 20 mg PO BID tab 03/05/17 [Rx] guaiFENesin SYRUP 100MG/5ML [Robitussin] 200 mg PO Q4H PRN cup 03/05/17 [Rx] Insuln Asp Prt/Insulin Aspart [NovoLOG MIX 70-30 VIAL] 52 unit SQ AC-BID vial 03/06/17 [Rx] Acetaminophen Tab [Tylenol] 650 mg PO Q12H PRN 04/20/17 [History] Fluticasone/Vilanterol [Breo Ellipta 100-25 Mcg Inhaler] 1 puff INHALATION RT- DAILY 04/20/17 [History] Gabapentin [Neurontin] 100 mg PO TID@0900,1300,2100 04/20/17 [History] Insulin Lispro [humaLOG Kwikpen] 5 unit SQ AC-TID 04/20/17 [History] Insulin Lispro [humaLOG Kwikpen] See Protocol SQ ACHS 04/20/17 [History] LORazepam [Ativan] 0.5 mg PO BID@0900,2100 PRN 04/20/17 [History] Linagliptin [Tradjenta] 5 mg PO DAILY 04/20/17 [History] Loperamide HCl [Imodium A-D] 2 mg PO QID PRN 04/20/17 [History] Aspirin 81 mg PO DAILY chew 04/24/17 [Rx] Atorvastatin [Lipitor] 80 mg PO HS #30 tab 04/24/17 [Rx] Cephalexin [Keflex] 500 mg PO TID #21 cap 04/24/17 [Rx] Clotrimazole/Betameth Cream [Lotrisone] 1 applic TOPICAL BID #30 applic [Rx] Metoprolol Tartrate [Lopressor] 75 mg PO BID #60 tab 04/24/17 [Rx] Torsemide [Demadex] 40 mg PO BID@0600,1200 #60 tab 04/24/17 [Rx] Follow up Appointment(s)/Referral(s): Gen Blancas MD [STAFF PHYSICIAN] - 06/01/17 12:00 pm (Sunday) Axel Thomason DO [Primary Care Provider] - 1 Week (Spoke to operator receptionist. Office will call with appointment time) Patient Instructions/Handouts: Supraventricular Tachycardia (DC)
== END 2017-04-24 12:31 | disposition home health service (06) | DRG 309 ==
LOC: EC 18:16 → 3OBS 20:50 → 6SEL 04-21 06:04 → OBSVTOIN 04-23 08:55
PROVIDERS: ADMIT Family Medicine; ATTEND Family Medicine
DX: I47.1 Supraventricular tachycardia (principal); I24.8 Other forms of acute ischemic heart disease; L97.819 Non-pressure chronic ulcer of other part of right lower leg with unspecified severity; E11.40 Type 2 diabetes mellitus with diabetic neuropathy, unspecified; E11.51 Type 2 diabetes mellitus with diabetic peripheral angiopathy without gangrene; E11.622 Type 2 diabetes mellitus with other skin ulcer; J43.9 Emphysema, unspecified; I11.9 Hypertensive heart disease without heart failure; E11.65 Type 2 diabetes mellitus with hyperglycemia; E66.9 Obesity, unspecified; R60.9 Edema, unspecified; E78.5 Hyperlipidemia, unspecified; G89.29 Other chronic pain; I25.10 Atherosclerotic heart disease of native coronary artery without angina pectoris; K21.9 Gastro-esophageal reflux disease without esophagitis; K58.9 Irritable bowel syndrome, unspecified; R09.02 Hypoxemia; F41.9 Anxiety disorder, unspecified; I83.93 Asymptomatic varicose veins of bilateral lower extremities; M19.90 Unspecified osteoarthritis, unspecified site; M48.00 Spinal stenosis, site unspecified; R32 Unspecified urinary incontinence; H93.13 Tinnitus, bilateral; H26.9 Unspecified cataract; Z79.4 Long term (current) use of insulin; Z79.899 Other long term (current) drug therapy; Z90.710 Acquired absence of both cervix and uterus; Z87.891 Personal history of nicotine dependence; Z90.49 Acquired absence of other specified parts of digestive tract; Z87.01 Personal history of pneumonia (recurrent); Z68.36 Body mass index [BMI] 36.0-36.9, adult; Z91.041 Radiographic dye allergy status; Z88.1 Allergy status to other antibiotic agents; Z88.5 Allergy status to narcotic agent; Z88.0 Allergy status to penicillin; Z88.8 Allergy status to other drugs, medicaments and biological substances; Z86.73 Personal history of transient ischemic attack (TIA), and cerebral infarction without residual deficits; Z82.49 Family history of ischemic heart disease and other diseases of the circulatory system
CPT/HCPCS: 36415; 71046; 80048; 80053; 80061; 80076; 82553; 83036; 83735; 83880; 84443; 84484; 85025; 85379; 85610; 85730; 93005; 93306; 94640; 94760; 96361; 96365; 99285

== ENCOUNTER 2017-08-28 16:26 | Emergency (ER) | payer MEDICARE, OTHER ==
[2017-08-28] MEDS ORDERED: methylPREDNISolone SOD SUCCI 125 MG/2 ML VIAL IV STA (18:10)
[2017-08-28] MEDS ORDERED: IPRATROPIUM-ALBUTEROL 3 ML NEB INHALATION STA (18:10)
--- NOTE | 2017-08-28 18:12 | ED ---
General Adult HPI - General Chief complaint: Shortness of Breath Stated complaint: Dyspnea Time Seen by Provider: 08/28/17 18:02 Source: patient, family, RN notes reviewed Mode of arrival: wheelchair Limitations: no limitations - History of Present Illness Initial comments: Patient is a pleasant 81-year-old female presenting to the emergency department for difficulty in breathing. Patient does have a history of COPD with similar previous symptoms. Patient does have back pain however this is chronic and unchanged. No chest pain. Mild cough. No fevers. Patient does have some leg swelling however it is actually improved from what her baseline is. Patient did see her doctor earlier today who advised her to come to the hospital. - Related Data Home Medications Medication Instructions Recorded Confirmed Albuterol Inhaler [Ventolin Hfa 1 - 2 puff INHALATION RT-Q6H PRN 05/19/14 Inhaler] Carvedilol [Coreg] 25 mg PO BID 08/28/17 08/28/17 Ibuprofen [Motrin Ib] 800 mg PO TID PRN 08/28/17 08/28/17 LORazepam [Ativan] 2 mg PO TID PRN 08/28/17 08/28/17 Previous Rx's Medication Instructions Recorded Insuln Asp Prt/Insulin Aspart 52 unit SQ AC-BID vial 03/06/17 [NovoLOG MIX 70-30 VIAL] Atorvastatin [Lipitor] 80 mg PO HS #30 tab 04/24/17 Azithromycin [Zithromax Z-pack] 250 mg PO DIRECTED #6 tab 08/28/17 Allergies Allergy/AdvReac Type Severity Reaction Status Date / Time iodine Allergy Severe Unknown Verified 08/28/17 18:12 blue dye Allergy Swelling Verified 08/28/17 18:12 bumetanide [From Bumex] Allergy Swelling Verified 08/28/17 18:12 diphenhydramine Allergy Unknown Verified 08/28/17 18:12 [From Benadryl] glipizide [From Glucotrol] Allergy Swelling Verified 08/28/17 18:12 metformin Allergy Swelling Verified 08/28/17 18:12 naproxen sodium [From Aleve] Allergy Swelling Verified 08/28/17 18:12 Penicillins Allergy Swelling Verified 08/28/17 18:12 codeine AdvReac Nausea & Verified 08/28/17 18:12 Vomiting egg AdvReac Nausea & Verified 08/28/17 18:12 Vomiting furosemide [From Lasix] AdvReac Abdominal Verified 08/28/17 18:12 Pain levofloxacin [From Levaquin] AdvReac Abdominal Verified 08/28/17 18:12 Pain morphine AdvReac Nausea & Verified 08/28/17 18:12 Vomiting nateglinide [From Starlix] AdvReac Unknown Verified 08/28/17 18:12 nitrofurantoin AdvReac Nausea & Verified 08/28/17 18:12 [From Macrobid] Vomiting & Diarrhea nitrofurantoin AdvReac Nausea & Verified 08/28/17 18:12 macrocrystalline Vomiting & [From Macrobid] Diarrhea Sulfa (Sulfonamide AdvReac Abdominal Verified 08/28/17 18:12 Antibiotics) Pain Review of Systems ROS Statement: Those systems with pertinent positive or pertinent negative responses have been documented in the HPI. ROS Other: All systems not noted in ROS Statement are negative. Constitutional: Denies: fever Eyes: Denies: eye pain ENT: Denies: ear pain Respiratory: Reports: cough, dyspnea Cardiovascular: Denies: chest pain Endocrine: Reports: fatigue Gastrointestinal: Denies: abdominal pain Genitourinary: Denies: dysuria Musculoskeletal: Reports: back pain (Chronic) Skin: Denies: rash Neurological: Denies: weakness Past Medical History Past Medical History: Asthma, Chest Pain / Angina, COPD, CVA/TIA, Diabetes Mellitus, GERD/Reflux, Hyperlipidemia, Hypertension, Osteoarthritis (OA), Pneumonia, Vascular Disorder Additional Past Medical History / Comment(s): neuropathy bilateral feet, chronic back pain, spinal stenosis, PAD, bilateral varicose veins, bronchitis, emphysema, irritable bowel syndrome, polyps, urinary incontinence, UTI, arthritis in legs bilaterally, tinnitus bilaterally, cataracts bilaterally.. History of Any Multi-Drug Resistant Organisms: None Reported Past Surgical History: Appendectomy, Cholecystectomy, Hysterectomy, Orthopedic Surgery Additional Past Surgical History / Comment(s): EGD/colonoscopy, hemorrhoidectomy , bilateral feet bunionectomies and corns removed. Past Anesthesia/Blood Transfusion Reactions: No Reported Reaction Past Psychological History: Anxiety Smoking Status: Former smoker - Past Family History Father History Unknown: Yes Family Medical History: Unable to Obtain Additional Family Medical History / Comment(s): at 32 from drowning Mother History Unknown: Yes Family Medical History: Myocardial Infarction (PR) Additional Family Medical History / Comment(s): Mother of a PR at the age of 68yrs. Brother(s) History Unknown: Yes Family Medical History: Unable to Obtain Additional Family Medical History / Comment(s): Patient has 1 brother that has multiple medical problems. Sister(s) History Unknown: Yes Family Medical History: Hypertension, Osteoarthritis (OA) Daughter(s) History Unknown: Yes Additional Family Medical History / Comment(s): back issues General Exam Limitations: no limitations General appearance: alert, in no apparent distress Head exam: Present: atraumatic Eye exam: Present: normal appearance, PERRL ENT exam: Present: normal oropharynx Neck exam: Present: normal inspection Respiratory exam: Present: decreased breath sounds Cardiovascular Exam: Present: regular rate, normal rhythm GI/Abdominal exam: Present: soft. Absent: tenderness Extremities exam: Present: pedal edema (+1 bilateral). Absent: calf tenderness Back exam: Present: normal inspection Neurological exam: Present: alert Psychiatric exam: Present: normal affect, normal mood Skin exam: Present: normal color Course Vital Signs 08/28/17 08/28/17 08/28/17 17:27 18:37 18:58 Temperature 98.6 F Pulse Rate 89 81 80 Respiratory 20 18 Rate Blood Pressure 181/79 202/91 O2 Sat by Pulse 97 99 Oximetry 08/28/17 19:08 Temperature Pulse Rate 84 Respiratory Rate Blood Pressure O2 Sat by Pulse Oximetry EKG Findings - EKG Comments: EKG Findings:: Normal sinus rhythm 81. First 3 AV block with a MN of 208. QRS 74. QT 390. QTC 453. Normal axis. Borderline inferior Q waves. No acute ST change. Medical Decision Making - Medical Decision Making Patient reevaluated and resting comfortably in bed. Lung sounds are clear. Patient states she is breathing better and does request discharge home. Patient was offered admission if she still felt short of breath. Patient and family are updated on results and need for close follow-up. Also advised to return if symptoms worsen. Patient refuses steroids. - Lab Data Result diagrams: 08/28/17 18:27 08/28/17 18:27 Lab Results 08/28/17 08/28/17 08/28/17 Range/Units 18:27 18:27 18:27 WBC 11.3 H (3.8-10.6) k/uL RBC 4.73 (3.80-5.40) m/uL Hgb 13.0 (11.4-16.0) gm/dL Hct 38.9 (34.0-46.0) % MCV 82.3 (80.0-100.0) fL MCH 27.6 (25.0-35.0) pg MCHC 33.5 (31.0-37.0) g/dL RDW 15.1 (11.5-15.5) % Plt Count 280 (150-450) k/uL Neutrophils % 77 % Lymphocytes % 12 % Monocytes % 8 % Eosinophils % 1 % Basophils % 0 % Neutrophils # 8.7 H (1.3-7.7) k/uL Lymphocytes # 1.4 (1.0-4.8) k/uL Monocytes # 0.9 (0-1.0) k/uL Eosinophils # 0.1 (0-0.7) k/uL Basophils # 0.0 (0-0.2) k/uL PT (9.0-12.0) sec INR (<1.2) APTT (22.0-30.0) sec Sodium 143 (137-145) mmol/L Potassium 3.8 (3.5-5.1) mmol/L Chloride 105 (98-107) mmol/L Carbon Dioxide 30 (22-30) mmol/L Anion Gap 8 mmol/L BUN 9 (7-17) mg/dL Creatinine 0.60 (0.52-1.04) mg/dL Est GFR (CKD-EPI)AfAm >90 (>60 ml/min/1.73 sqM) Est GFR (CKD-EPI)NonAf 87 (>60 ml/min/1.73 sqM) Glucose 57 L (74-99) mg/dL Calcium 9.5 (8.4-10.2) mg/dL Total Bilirubin 0.2 (0.2-1.3) mg/dL AST 21 (14-36) U/L ALT 33 (9-52) U/L Alkaline Phosphatase 101 (38-126) U/L NT-Pro-B Natriuret Pep 257 pg/mL Total Protein 7.0 (6.3-8.2) g/dL Albumin 4.1 (3.5-5.0) g/dL 08/28/17 Range/Units 18:27 WBC (3.8-10.6) k/uL RBC (3.80-5.40) m/uL Hgb (11.4-16.0) gm/dL Hct (34.0-46.0) % MCV (80.0-100.0) fL MCH (25.0-35.0) pg MCHC (31.0-37.0) g/dL RDW (11.5-15.5) % Plt Count (150-450) k/uL Neutrophils % % Lymphocytes % % Monocytes % % Eosinophils % % Basophils % % Neutrophils # (1.3-7.7) k/uL Lymphocytes # (1.0-4.8) k/uL Monocytes # (0-1.0) k/uL Eosinophils # (0-0.7) k/uL Basophils # (0-0.2) k/uL PT 9.8 (9.0-12.0) sec INR 1.0 (<1.2) APTT 24.3 (22.0-30.0) sec Sodium (137-145) mmol/L Potassium (3.5-5.1) mmol/L Chloride (98-107) mmol/L Carbon Dioxide (22-30) mmol/L Anion Gap mmol/L BUN (7-17) mg/dL Creatinine (0.52-1.04) mg/dL Est GFR (CKD-EPI)AfAm (>60 ml/min/1.73 sqM) Est GFR (CKD-EPI)NonAf (>60 ml/min/1.73 sqM) Glucose (74-99) mg/dL Calcium (8.4-10.2) mg/dL Total Bilirubin (0.2-1.3) mg/dL AST (14-36) U/L ALT (9-52) U/L Alkaline Phosphatase (38-126) U/L NT-Pro-B Natriuret Pep pg/mL Total Protein (6.3-8.2) g/dL Albumin (3.5-5.0) g/dL - Radiology Data Radiology results: image reviewed (Chest x-ray shows some infiltrate and atelectasis right base.) Disposition Clinical Impression: COPD exacerbation, Pneumonia Disposition: HOME SELF-CARE Condition: Stable Additional Instructions: Please follow-up with primary care physician this week. Return for difficulty in breathing, fevers, increased pain, worsening symptoms or any other concerns. Prescriptions: Azithromycin [Zithromax Z-pack] 250 mg PO DIRECTED #6 tab Is patient prescribed a controlled substance at d/c from ED?: No Referrals: Axel Thomason DO [Primary Care Provider] - 1-2 days Time of Disposition: 20:15
[2017-08-28 18:47] LABS: Basophils % (A) 0 %; Eosinophils # (A) 0.1 k/uL (0-0.7); Eosinophils % (A) 1 %; HCT 38.9 % (34.0-46.0); Lymphocytes # (A) 1.4 k/uL (1.0-4.8); Lymphocytes % (A) 12 %; MCH 27.6 pg (25.0-35.0); MCHC 33.5 g/dL (31.0-37.0); MCV 82.3 fL (80.0-100.0); Mean Platelet Volume 7.6; Monocytes # (A) 0.9 k/uL (0-1.0); Monocytes % (A) 8 %; Neutrophils # (A) 8.7 k/uL (1.3-7.7); Neutrophils % (A) 77 %; Platelet Count 280 k/uL (150-450); RBC 4.73 m/uL (3.80-5.40); RDW 15.1 % (11.5-15.5); WBC 11.3 k/uL (3.8-10.6)
[2017-08-28 18:54] LABS: Partial Thromboplastin Time 24.3 sec (22.0-30.0); Prothrombin Time 9.8 sec (9.0-12.0)
--- NOTE | 2017-08-28 18:57 | XR ---
EXAMINATION TYPE: XR chest 2V DATE OF EXAM: 08/28/2017 COMPARISON: 04/20/2017 HISTORY: Difficulty breathing TECHNIQUE: Frontal and lateral views of the chest are obtained. FINDINGS: There is some infiltrate at the right lung base. The other lung asencio are clear. There is no heart failure. Heart is enlarged. There is mild thoracic kyphosis with osteopenia. There is sligh t anterior wedging of several thoracic vertebra. IMPRESSION: There is some linear infiltrate and atelectasis at the right lung bases is slightly wors e than last exam. There is some underlying pulmonary fibrosis. No heart failure seen.
[2017-08-28 19:07] LABS: ALT 33 U/L (9-52); AST 21 U/L (14-36); Albumin 4.1 g/dL (3.5-5.0); Alkaline Phosphatase 101 U/L (38-126); Anion Gap 8 mmol/L; Blood Urea Nitrogen 9 mg/dL (7-17); Calcium 9.5 mg/dL (8.4-10.2); Carbon Dioxide 30 mmol/L (22-30); Chloride 105 mmol/L (98-107); Glucose 57 mg/dL (74-99); Potassium 3.8 mmol/L (3.5-5.1); Sodium 143 mmol/L (137-145); Total Bilirubin 0.2 mg/dL (0.2-1.3)
[2017-08-28] MEDS ORDERED: CARVEDILOL 12.5 MG TAB PO STA (20:12)
[2017-08-28] MEDS ORDERED: AZITHROMYCIN 500 MG TAB PO STA (20:14)
[2017-08-28] MEDS ORDERED: traMADol 50 MG TAB PO STA (20:16)
--- NOTE | 2017-08-28 20:27 | ED ---
Medical Decision Making - Lab Data Result diagrams: 08/28/17 18:27 18 18:27 Lab Results 08/28/17 08/28/17 08/28/17 Range/Units 18:27 18:27 18:27 WBC 11.3 H (3.8-10.6) k/uL RBC 4.73 (3.80-5.40) m/uL Hgb 13.0 (11.4-16.0) gm/dL Hct 38.9 (34.0-46.0) % MCV 82.3 (80.0-100.0) fL MCH 27.6 (25.0-35.0) pg MCHC 33.5 (31.0-37.0) g/dL RDW 15.1 (11.5-15.5) % Plt Count 280 (150-450) k/uL Neutrophils % 77 % Lymphocytes % 12 % Monocytes % 8 % Eosinophils % 1 % Basophils % 0 % Neutrophils # 8.7 H (1.3-7.7) k/uL Lymphocytes # 1.4 (1.0-4.8) k/uL Monocytes # 0.9 (0-1.0) k/uL Eosinophils # 0.1 (0-0.7) k/uL Basophils # 0.0 (0-0.2) k/uL PT (9.0-12.0) sec INR (<1.2) APTT (22.0-30.0) sec Sodium 143 (137-145) mmol/L Potassium 3.8 (3.5-5.1) mmol/L Chloride 105 (98-107) mmol/L Carbon Dioxide 30 (22-30) mmol/L Anion Gap 8 mmol/L BUN 9 (7-17) mg/dL Creatinine 0.60 (0.52-1.04) mg/dL Est GFR (CKD-EPI)AfAm >90 (>60 ml/min/1.73 sqM) Est GFR (CKD-EPI)NonAf 87 (>60 ml/min/1.73 sqM) Glucose 57 L (74-99) mg/dL Calcium 9.5 (8.4-10.2) mg/dL Total Bilirubin 0.2 (0.2-1.3) mg/dL AST 21 (14-36) U/L ALT 33 (9-52) U/L Alkaline Phosphatase 101 (38-126) U/L NT-Pro-B Natriuret Pep 257 pg/mL Total Protein 7.0 (6.3-8.2) g/dL Albumin 4.1 (3.5-5.0) g/dL 08/28/17 Range/Units 18:27 WBC (3.8-10.6) k/uL RBC (3.80-5.40) m/uL Hgb (11.4-16.0) gm/dL Hct (34.0-46.0) % MCV (80.0-100.0) fL MCH (25.0-35.0) pg MCHC (31.0-37.0) g/dL RDW (11.5-15.5) % Plt Count (150-450) k/uL Neutrophils % % Lymphocytes % % Monocytes % % Eosinophils % % Basophils % % Neutrophils # (1.3-7.7) k/uL Lymphocytes # (1.0-4.8) k/uL Monocytes # (0-1.0) k/uL Eosinophils # (0-0.7) k/uL Basophils # (0-0.2) k/uL PT 9.8 (9.0-12.0) sec INR 1.0 (<1.2) APTT 24.3 (22.0-30.0) sec Sodium (137-145) mmol/L Potassium (3.5-5.1) mmol/L Chloride (98-107) mmol/L Carbon Dioxide (22-30) mmol/L Anion Gap mmol/L BUN (7-17) mg/dL Creatinine (0.52-1.04) mg/dL Est GFR (CKD-EPI)AfAm (>60 ml/min/1.73 sqM) Est GFR (CKD-EPI)NonAf (>60 ml/min/1.73 sqM) Glucose (74-99) mg/dL Calcium (8.4-10.2) mg/dL Total Bilirubin (0.2-1.3) mg/dL AST (14-36) U/L ALT (9-52) U/L Alkaline Phosphatase (38-126) U/L NT-Pro-B Natriuret Pep pg/mL Total Protein (6.3-8.2) g/dL Albumin (3.5-5.0) g/dL Disposition Clinical Impression: COPD exacerbation, Pneumonia Disposition: HOME SELF-CARE Condition: Stable Instructions: COPD (Chronic Obstructive Pulmonary Disease) (ED), Pneumonia (ED) Additional Instructions: Please follow-up with primary care physician this week. Return for difficulty in breathing, fevers, increased pain, worsening symptoms or any other concerns. Prescriptions: Azithromycin [Zithromax Z-pack] 250 mg PO DIRECTED #6 tab Is patient prescribed a controlled substance at d/c from ED?: No Referrals: Axel Thomason DO [Primary Care Provider] - 1-2 days
[2017-08-28 20:41] VITALS: BP 198/81; PULSE 79; RESP 17; TEMP 98.1
== END 2017-08-28 20:46 | disposition home or self-care (01) ==
LOC: EC 16:26
DX: J18.9 Pneumonia, unspecified organism (principal); J44.1 Chronic obstructive pulmonary disease with (acute) exacerbation; I10 Essential (primary) hypertension; Z87.891 Personal history of nicotine dependence; Z79.899 Other long term (current) drug therapy; Z88.0 Allergy status to penicillin; Z88.1 Allergy status to other antibiotic agents; Z88.5 Allergy status to narcotic agent; Z88.2 Allergy status to sulfonamides; Z88.8 Allergy status to other drugs, medicaments and biological substances; Z88.6 Allergy status to analgesic agent; Z91.012 Allergy to eggs
CPT/HCPCS: 36415; 94640; 93005; 83880; 80053; 85025; 85610; 85730; 71046; 99285; 96374; J2930

== ENCOUNTER 2017-10-02 19:46 | Emergency (ER) | payer MEDICARE, OTHER ==
--- NOTE | 2017-10-02 21:01 | ED ---
SOB HPI - General Chief Complaint: Shortness of Breath Stated Complaint: KEMAR Time Seen by Provider: 10/02/17 21:00 Source: patient Mode of arrival: wheelchair Limitations: no limitations - History of Present Illness Initial Comments: 81-year-old female with extensive past medical history most significant for recent admission to an outside hospital through Sunday of last week. Patient reports she was admitted for a COPD exacerbation and returned home on Sunday night. She reports she was feeling better upon returning home but throughout the day on Sunday was feeling very fatigued and didn't get out of bed. The patient states that throughout the day today she has felt aggressively worsening fatigue, she has felt unstable on her feet when attempting to ambulate to the restroom. She reports that her cough is worsening and becoming more productive. She also states that due to her fatigue she's had less appetite, she has continued to take her home dose of insulin but has noted that her sugars have gotten low. Patient complains of generalized fatigue, worse with any exertion, she feels best when she is resting in bed. Progressively worsening since Sunday morning. She also reports mildly productive cough, she has a chronic cough secondary to her COPD. She had worsening shortness of breath on which prompted her to seek care at the outside hospital, this improved throughout the weekend. She reports that since discharge she's had progressively worsening cough and wheeze and shortness of breath. Cough is mildly productive and not associated with any fevers. Shortness of breath is at baseline. She has been using her 2 L of nasal cannula oxygen which is unchanged from her baseline. - Related Data Home Medications Medication Instructions Recorded Confirmed Albuterol Inhaler [Ventolin Hfa 1 - 2 puff INHALATION RT-Q6H PRN 05/19/14 Inhaler] Carvedilol [Coreg] 25 mg PO BID 08/28/17 08/28/17 Ibuprofen [Motrin Ib] 800 mg PO TID PRN 08/28/17 08/28/17 LORazepam [Ativan] 2 mg PO TID PRN 08/28/17 08/28/17 Previous Rx's Medication Instructions Recorded Insuln Asp Prt/Insulin Aspart 52 unit SQ AC-BID vial 03/06/17 [NovoLOG MIX 70-30 VIAL] Atorvastatin [Lipitor] 80 mg PO HS #30 tab 04/24/17 Azithromycin [Zithromax Z-pack] 250 mg PO DIRECTED #6 tab 08/28/17 Allergies Allergy/AdvReac Type Severity Reaction Status Date / Time iodine Allergy Severe Unknown Verified 10/02/17 20:00 blue dye Allergy Swelling Verified 10/02/17 20:00 bumetanide [From Bumex] Allergy Swelling Verified 10/02/17 20:00 diphenhydramine Allergy Unknown Verified 10/02/17 20:00 [From Benadryl] glipizide [From Glucotrol] Allergy Swelling Verified 10/02/17 20:00 metformin Allergy Swelling Verified 10/02/17 20:00 naproxen sodium [From Aleve] Allergy Swelling Verified 10/02/17 20:00 Penicillins Allergy Swelling Verified 10/02/17 20:00 tramadol Allergy Unknown Verified 10/02/17 20:01 codeine AdvReac Nausea & Verified 10/02/17 20:00 Vomiting egg AdvReac Nausea & Verified 10/02/17 20:00 Vomiting furosemide [From Lasix] AdvReac Abdominal Verified 10/02/17 20:00 Pain levofloxacin [From Levaquin] AdvReac Abdominal Verified 10/02/17 20:00 Pain morphine AdvReac Nausea & Verified 10/02/17 20:00 Vomiting nateglinide [From Starlix] AdvReac Unknown Verified 10/02/17 20:00 nitrofurantoin AdvReac Nausea & Verified 10/02/17 20:00 [From Macrobid] Vomiting & Diarrhea nitrofurantoin AdvReac Nausea & Verified 10/02/17 20:00 macrocrystalline Vomiting & [From Macrobid] Diarrhea Sulfa (Sulfonamide AdvReac Abdominal Verified 10/02/17 20:00 Antibiotics) Pain Review of Systems ROS Statement: Those systems with pertinent positive or pertinent negative responses have been documented in the HPI. ROS Other: All systems not noted in ROS Statement are negative. Constitutional: Reports: weakness (Generalized), weight change (10 pound weight loss over past one month). Denies: fever ENT: Reports: throat pain (From coughing) Respiratory: Reports: cough, dyspnea, wheezes. Denies: hemoptysis, stridor Cardiovascular: Reports: dyspnea on exertion, edema. Denies: chest pain, palpitations Endocrine: Reports: fatigue Gastrointestinal: Reports: other (Conic abdominal distention, decreased by mouth intake). Denies: abdominal pain, nausea, vomiting Genitourinary: Denies: urgency, dysuria Musculoskeletal: Denies: back pain Skin: Denies: rash, lesions Neurological: Reports: weakness. Denies: headache Hematological/Lymphatic: Denies: easy bleeding, easy bruising Past Medical History Past Medical History: Asthma, Chest Pain / Angina, COPD, CVA/TIA, Diabetes Mellitus, GERD/Reflux, Hyperlipidemia, Hypertension, Osteoarthritis (OA), Pneumonia, Vascular Disorder Additional Past Medical History / Comment(s): neuropathy bilateral feet, chronic back pain, spinal stenosis, PAD, bilateral varicose veins, bronchitis, emphysema, irritable bowel syndrome, polyps, urinary incontinence, UTI, arthritis in legs bilaterally, tinnitus bilaterally, cataracts bilaterally.. History of Any Multi-Drug Resistant Organisms: None Reported Past Surgical History: Appendectomy, Cholecystectomy, Hysterectomy, Orthopedic Surgery Additional Past Surgical History / Comment(s): EGD/colonoscopy, hemorrhoidectomy , bilateral feet bunionectomies and corns removed. Past Anesthesia/Blood Transfusion Reactions: No Reported Reaction Past Psychological History: Anxiety Smoking Status: Former smoker Past Alcohol Use History: None Reported Past Drug Use History: None Reported - Past Family History Father History Unknown: Yes Family Medical History: Unable to Obtain Additional Family Medical History / Comment(s): at 32 from drowning Mother History Unknown: Yes Family Medical History: Myocardial Infarction (AL) Additional Family Medical History / Comment(s): Mother of a AL at the age of 68yrs. Brother(s) History Unknown: Yes Family Medical History: Unable to Obtain Additional Family Medical History / Comment(s): Patient has 1 brother that has multiple medical problems. Sister(s) History Unknown: Yes Family Medical History: Hypertension, Osteoarthritis (OA) Daughter(s) History Unknown: Yes Additional Family Medical History / Comment(s): back issues General Exam Limitations: no limitations General appearance: alert, obese, other Head exam: Present: atraumatic, normocephalic Eye exam: Present: normal appearance, PERRL ENT exam: Present: normal exam, mucous membranes moist Neck exam: Present: full ROM Respiratory exam: Present: wheezes Cardiovascular Exam: Present: regular rate, tachycardia GI/Abdominal exam: Present: soft, distended. Absent: tenderness, guarding, rebound, rigid Rectal exam: Present: deferred Extremities exam: Present: pedal edema (1+ pitting edema bilaterally ) Back exam: Present: other (kyphosis) Neurological exam: Present: alert, oriented X3 Psychiatric exam: Present: normal affect, normal mood Skin exam: Present: warm, dry Course Vital Signs 10/02/17 10/02/17 10/02/17 19:57 21:37 23:59 Temperature 98.6 F Pulse Rate 101 H 99 Respiratory 18 20 Rate Blood Pressure 129/59 O2 Sat by Pulse 97 94 L Oximetry Medical Decision Making - Medical Decision Making Patient was seen and evaluated history was obtained from the patient and family This is a patient with a recent admission to an outside hospital presenting now with progressively worsening cough, weakness, tachycardia, hypotension A sepsis workup was ordered, IV fluids and DuoNeb's were ordered EKG obtained at 2027, rate is 101, rhythm is sinus tachycardia, there is normal axis, there are normal intervals, MS is 178, QRS is 70, QTC is 448, no acute ST elevations or depressions, there is some respiratory artifact but no evidence of acute ischemia or infarction. X-ray with no acute findings Labs are the patient's baseline Urinalysis with no evidence of urinary tract infection Results were discussed with the patient, I offered to contact the admitting team to discuss possibility of observation status for generalized debility and discussion of placement in a rehab facility. Patient states that if there is no definitive indication for her to be admitted the hospital she does not want to stay. She does not want to go to rehab facility. Patient states she is comfortable being discharged home knowing that she does not have pneumonia. She is daughter was contacted for a ride home. Asians daughter arrived at bedside, I discussed with her that there were no acute findings at this time I couldn't contact the admitting team for observation but the patient does not meet full admit. She states that she will contact the patient's primary care provider in the morning to establish follow- up and discuss with him placement, she is aware that the patient does not particularly want to go to rehab. At this time she feels safe taking her mother home. Parameters were discussed patient was discharged home with her daughter. - Lab Data Result diagrams: 10/02/17 21:00 10/02/17 21:00 Lab Results 10/02/17 10/02/17 10/02/17 Range/Units 21:00 21:00 21:00 WBC 14.1 H (3.8-10.6) k/uL RBC 5.07 (3.80-5.40) m/uL Hgb 13.9 (11.4-16.0) gm/dL Hct 43.3 (34.0-46.0) % MCV 85.4 (80.0-100.0) fL MCH 27.4 (25.0-35.0) pg MCHC 32.1 (31.0-37.0) g/dL RDW 15.2 (11.5-15.5) % Plt Count 221 (150-450) k/uL Neutrophils % 84 % Lymphocytes % 9 % Monocytes % 5 % Eosinophils % 2 % Basophils % 0 % Neutrophils # 11.8 H (1.3-7.7) k/uL Lymphocytes # 1.3 (1.0-4.8) k/uL Monocytes # 0.7 (0-1.0) k/uL Eosinophils # 0.2 (0-0.7) k/uL Basophils # 0.0 (0-0.2) k/uL PT (9.0-12.0) sec INR (<1.2) APTT (22.0-30.0) sec Sodium 139 (137-145) mmol/L Potassium 4.0 (3.5-5.1) mmol/L Chloride 101 (98-107) mmol/L Carbon Dioxide 31 H (22-30) mmol/L Anion Gap 7 mmol/L BUN 16 (7-17) mg/dL Creatinine 0.72 (0.52-1.04) mg/dL Est GFR (CKD-EPI)AfAm >90 (>60 ml/min/1.73 sqM) Est GFR (CKD-EPI)NonAf 81 (>60 ml/min/1.73 sqM) Glucose 82 (74-99) mg/dL POC Glucose (mg/dL) (75-99) mg/dL POC Glu Manager Part ID Calcium 9.0 (8.4-10.2) mg/dL Total Bilirubin 0.5 (0.2-1.3) mg/dL AST 21 (14-36) U/L ALT 39 (9-52) U/L Alkaline Phosphatase 80 (38-126) U/L Total Creatine Kinase 21 L (30-135) U/L CK-MB (CK-2) 1.0 (0.0-2.4) ng/mL CK-MB (CK-2) Rel Index 4.8 Troponin I <0.012 (0.000-0.034) ng/mL Total Protein 6.9 (6.3-8.2) g/dL Albumin 3.9 (3.5-5.0) g/dL Urine Color Urine Appearance (Clear) Urine pH (5.0-8.0) Ur Specific Adin (1.001-1.035) Urine Protein (Negative) Urine Glucose (UA) (Negative) Urine Ketones (Negative) Urine Blood (Negative) Urine Nitrite (Negative) Urine Bilirubin (Negative) Urine Urobilinogen (<2.0) mg/dL Ur Leukocyte Esterase (Negative) 10/02/17 10/02/17 10/02/17 Range/Units 21:00 22:48 23:07 WBC (3.8-10.6) k/uL RBC (3.80-5.40) m/uL Hgb (11.4-16.0) gm/dL Hct (34.0-46.0) % MCV (80.0-100.0) fL MCH (25.0-35.0) pg MCHC (31.0-37.0) g/dL RDW (11.5-15.5) % Plt Count (150-450) k/uL Neutrophils % % Lymphocytes % % Monocytes % % Eosinophils % % Basophils % % Neutrophils # (1.3-7.7) k/uL Lymphocytes # (1.0-4.8) k/uL Monocytes # (0-1.0) k/uL Eosinophils # (0-0.7) k/uL Basophils # (0-0.2) k/uL PT 10.0 (9.0-12.0) sec INR 1.0 (<1.2) APTT 23.0 (22.0-30.0) sec Sodium (137-145) mmol/L Potassium (3.5-5.1) mmol/L Chloride (98-107) mmol/L Carbon Dioxide (22-30) mmol/L Anion Gap mmol/L BUN (7-17) mg/dL Creatinine (0.52-1.04) mg/dL Est GFR (CKD-EPI)AfAm (>60 ml/min/1.73 sqM) Est GFR (CKD-EPI)NonAf (>60 ml/min/1.73 sqM) Glucose (74-99) mg/dL POC Glucose (mg/dL) 79 (75-99) mg/dL POC Glu Manager Part ID Alisa Rudolph Calcium (8.4-10.2) mg/dL Total Bilirubin (0.2-1.3) mg/dL AST (14-36) U/L ALT (9-52) U/L Alkaline Phosphatase (38-126) U/L Total Creatine Kinase (30-135) U/L CK-MB (CK-2) (0.0-2.4) ng/mL CK-MB (CK-2) Rel Index Troponin I (0.000-0.034) ng/mL Total Protein (6.3-8.2) g/dL Albumin (3.5-5.0) g/dL Urine Color Light Yellow Urine Appearance Clear (Clear) Urine pH 6.5 (5.0-8.0) Ur Specific Adin 1.010 (1.001-1.035) Urine Protein Negative (Negative) Urine Glucose (UA) Negative (Negative) Urine Ketones Negative (Negative) Urine Blood Negative (Negative) Urine Nitrite Negative (Negative) Urine Bilirubin Negative (Negative) Urine Urobilinogen <2.0 (<2.0) mg/dL Ur Leukocyte Esterase Negative (Negative) Disposition Clinical Impression: COPD (chronic obstructive pulmonary disease), Debility, Physical deconditioning Disposition: HOME SELF-CARE Instructions: Chronic Cough (ED) Is patient prescribed a controlled substance at d/c from ED?: No Referrals: Axel Thomason DO [Primary Care Provider] - 1-2 days Time of Disposition: 01:30
[2017-10-02] MEDS ORDERED: SODIUM CHLORIDE 0.9% 500 ML IV SCH (21:15)
[2017-10-02 21:19] LABS: ALT 39 U/L (9-52); AST 21 U/L (14-36); Albumin 3.9 g/dL (3.5-5.0); Alkaline Phosphatase 80 U/L (38-126); Anion Gap 7 mmol/L; Basophils % (A) 0 %; Blood Urea Nitrogen 16 mg/dL (7-17); Carbon Dioxide 31 mmol/L (22-30); Chloride 101 mmol/L (98-107); Eosinophils # (A) 0.2 k/uL (0-0.7); Eosinophils % (A) 2 %; Glucose 82 mg/dL (74-99); HCT 43.3 % (34.0-46.0); HGB 13.9 gm/dL (11.4-16.0); Lymphocytes # (A) 1.3 k/uL (1.0-4.8); Lymphocytes % (A) 9 %; MCH 27.4 pg (25.0-35.0); MCHC 32.1 g/dL (31.0-37.0); MCV 85.4 fL (80.0-100.0); Monocytes # (A) 0.7 k/uL (0-1.0); Monocytes % (A) 5 %; Neutrophils # (A) 11.8 k/uL (1.3-7.7); Neutrophils % (A) 84 %; Platelet Count 221 k/uL (150-450); RBC 5.07 m/uL (3.80-5.40); RDW 15.2 % (11.5-15.5); Sodium 139 mmol/L (137-145); Total Bilirubin 0.5 mg/dL (0.2-1.3); Total Protein 6.9 g/dL (6.3-8.2); WBC 14.1 k/uL (3.8-10.6)
[2017-10-02 21:33] LABS: Creatine Kinase 21 U/L (30-135)
[2017-10-02 21:46] LABS: Troponin I <0.012 ng/mL (0.000-0.034)
--- NOTE | 2017-10-02 22:08 | XR ---
EXAMINATION: XR chest 2V DATE AND TIME: 10/02/2017 9:47 PM ORDERING PROVIDER: Carmenza Cook DO CLINICAL INDICATION: Fever TECHNIQUE: AP upright and lateral COMPARISON: 08/28/2017 DESCRIPTION: The previously seen coming infiltration of the medial right lung base is redemonstrated with overall similar appearance given differences in radiographic technique. The lungs are otherwise clear. The pleural spaces are negative. The cardiac silhouette appears mildly enlarged. The skeletal structures are intact without focal findings. The overlying soft tissues are prominent. IMPRESSION: STABLE RIGHT LUNG BASE AIRLESSNESS WHEN COMPARED TO THE 08/28/2017 STUDY. NO NEW PROCESS.
[2017-10-02 23:09] LABS: Glucose,Whole Blood 79 mg/dL (75-99)
[2017-10-02 23:22] LABS: Appearance,Urine Clear (Clear); Bilirubin,Urine Negative (Negative); Blood,Urine Negative (Negative); Color,Urine Light Yellow; Glucose,Urine (UA) Negative (Negative); Ketones,Urine Negative (Negative); Leukocyte Esterase,Urine Negative (Negative); Nitrite,Urine Negative (Negative); PH, Urine 6.5 (5.0-8.0); Protein,Urine Negative (Negative); Urobilinogen,Urine <2.0 mg/dL (<2.0)
[2017-10-03 01:52] VITALS: BP 172/70; PULSE 103; RESP 17; TEMP 98.1
== END 2017-10-03 01:57 | disposition home or self-care (01) ==
LOC: EC 19:46
DX: J44.9 Chronic obstructive pulmonary disease, unspecified (principal); R53.81 Other malaise; I10 Essential (primary) hypertension; Z86.73 Personal history of transient ischemic attack (TIA), and cerebral infarction without residual deficits; Z87.891 Personal history of nicotine dependence; Z79.899 Other long term (current) drug therapy; Z91.048 Other nonmedicinal substance allergy status; Z88.8 Allergy status to other drugs, medicaments and biological substances; Z88.6 Allergy status to analgesic agent; Z88.0 Allergy status to penicillin; Z88.5 Allergy status to narcotic agent; Z91.012 Allergy to eggs; Z88.1 Allergy status to other antibiotic agents; Z88.2 Allergy status to sulfonamides
CPT/HCPCS: 36415; 71046; 80053; 81003; 82550; 82553; 84484; 85025; 85610; 85730; 87040; 87086; 93005; 96360; 99285